=== PATIENT | male | born 1950 | race Caucasian/White ===

== ENCOUNTER 2016-12-05 11:54 | Emergency (ER) | payer OTHER ==
[~2016-12-05] VITALS: Ht 170.2 cm; Wt 97.0 kg
[~2016-12-05 11:54] MED LIST: ADVIN25/60 INH; CETI10TA84 PO; GABA-113 PO; HYDR-5688 PO; MONT1TAB3 PO; SNQ/25 PO; XPNIN INH
[2016-12-05 11:57] VITALS: Ht 170.2 cm; Wt 97.0 kg
[2016-12-05] MEDS ORDERED: ONDANSETRON INJ 2 MG/ML 2 ML VIAL IV STA (12:17)
[2016-12-05] MEDS ORDERED: MoRPHine SULFATE 4 MG/ML 1 ML CARP\\VIAL IV STA (12:17)
[2016-12-05] MEDS ORDERED: DEXAMETHASONE SOD INJ 10 MG/ML VIAL IV ONE (12:30)
[2016-12-05] MEDS ORDERED: KETOROLAC TROMETHAMINE 15 MG/ML VIAL IV ONE (12:30)
[2016-12-05] MEDS ORDERED: KETOROLAC TROMETHAMINE 30 MG/ML VIAL ONE (12:31)
[2016-12-05 12:45] LABS: BASO % 0.4 %; BASO ABS # 0.02 K/uL (0-0.2); COMPLETE YES; EOS % 3.6 %; HEMATOCRIT 42.6 % (42-52); IG% 0.2 %; LYMPH % 27.5 %; LYMPH ABS # 1.52 K/uL (1.2-3.4); MEAN CELL VOLUME 91.8 fL (80-100); MEAN CORPUSCULAR HGB CONC 35.9 g/dl (32-36); MEAN PLATELET VOLUME 9.4 fL (7.4-10.4); MONO % 7.6 %; NEUT % 60.7 %; PLATELET COUNT 166 K/uL (130-400); RED BLOOD COUNT 4.64 M/uL (4.7-6.1); WHITE BLOOD COUNT 5.52 K/uL (4.8-10.8)
[2016-12-05 13:01] LABS: CALCIUM 8.6 mg/dl (8.5-10.1); CREATININE 0.82 mg/dl (0.60-1.40); POTASSIUM 4.1 mmol/L (3.5-5.1)
[2016-12-05] MEDS ORDERED: MoRPHine SULFATE 2 MG/ML CARP IV STA (13:35)
[2016-12-05] MEDS ORDERED: FLUC100T4 PO (13:42)
[2016-12-05] MEDS ORDERED: PRED20TA PO (14:48)
[2016-12-05] MEDS ORDERED: OXYC-57 PO (14:48)
[2016-12-05] MEDS ORDERED: PROM25TA9 PO (14:48)
[2016-12-05 15:07] VITALS: BP 121/71; PULSE 66; TEMP 36.6; O2SAT 92
--- NOTE | 2016-12-13 20:39 | EMERGENCY ROOM VISIT NOTE ---
History First contact with patient: 12:04 Chief Complaint: BACK PAIN Stated Complaint: SEVERE BACK PAIN History of Present Illness The patient is a 66 year old white male who presents to the Emergency Room with complaints of severe low back pain that started on Mike. He has a known history of back problems. Patient has seen Dr. Live in the past for surgery. He was also seen earlier this week in the office. He was also previously seen at pain management this week. Patient presents a photocopy of an x-ray, that shows a broken screw in his sacral area. Patient denies any difficulty with bowel or bladder function. Pain is 10/10. He has been using Ventress 7.5 mg at home without improvement. Pain radiates to the back of his thighs. His worst pain is over the lumbosacral junction. He denies any true numbness but does state he has blunted sensation the legs. No trauma. No specific injury to increase his pain. Review of Systems REVIEW OF SYSTEM: HEENT: No dizziness, visual problems, hearing loss, or tinnitus. There is no difficulty swallowing and no oral lesions are present. LYMPH: No adenopathy. PULMONARY: No cough, shortness of breath, sputum production or hemoptysis. CARDIOVASCULAR: No chest pain, palpitations, shortness of breath or peripheral edema. GASTROINTESTINAL: No diarrhea, constipation, nausea, vomiting, or abdominal pain. GENITOURINARY: No dysuria, frequency, urgency or nocturia. NEUROLOGIC: No weakness, muscle tenderness, epilepsy or history of neurological problems. MUSCULOSKELETAL: No history of joint tenderness/swelling. Positive history of arthritis and arthralgias. SKIN: No rashes or lesions. PSYCHIATRIC: No history of depression or mental illness. ENDOCRINE: No history of diabetes, thyroid disorders, or abnormal hair growth. Past Medical/Surgical History Medical Problems: (1) Asthma (2) Chest pain radiating to arm (3) Chest pain radiating to jaw Surgical Problems: (1) H/O repair of left rotator cuff (2) H/O repair of right rotator cuff (3) History of lumbar surgery Family History No pertinent family history Significant for hypertension. Parents are . Social History Smoking Status: Never Smoker Alcohol Use: none Drug Use: none Marital Status: Housing Status: lives with significant other Occupation Status: retired Current/Historical Medications Scheduled Cetirizine (Zyrtec), 10 MG PO BID Doxepin (Sinequan), 75 MG PO HS Fluconazole (Diflucan), 75 MG PO HS Fluticasone Prop/Salmeterol (Advair Diskus 250/50 60 Dose), 1 PUFF INH BID Gabapentin (Neurontin), 900 MG PO TID Montelukast Sodium (Singulair), 10 MG PO QAM Prednisone (Prednisone), 0 PO DAILY Scheduled PRN Hydrocodone/Acetaminophen 5MG/325MG (Ventress 5MG/325MG), 1 TABLET PO TID PRN for Pain Levalbuterol Tartrate (Xopenex Hfa), 1 PUFF INH UD PRN for Asthma Symptoms Oxycodone/Acetaminophen 5MG/325MG (Percocet 5MG/325MG), 1-2 TABS PO Q4 PRN for Pain Promethazine Hcl (Phenergan), 25 MG PO Q6H PRN for Nausea Allergies Coded Allergies: Acetaminophen (Unverified Allergy, Intermediate, nausea, 12/05/16) Oxycodone (Unverified Allergy, Intermediate, nausea, 12/05/16) Sulfa Antibiotics (Verified Allergy, Intermediate, RASH, 12/05/16) POLLEN (Verified Allergy, Mild, RASH ITCHING, 12/05/16) ENVIRONMENTAL ALLERGIES Cat Dander (Verified Allergy, Unknown, ., 12/05/16) Dog Dander (Verified Allergy, Unknown, ., 12/05/16) Molds & Smuts (Verified Allergy, Unknown, ., 12/05/16) Physical Exam Vital Signs Date Time Temp Pulse Resp B/P Pulse Ox O2 Delivery O2 Flow Rate FiO2 12/05/16 15:07 36.6 66 18 121/71 92 12/05/16 15:05 66 18 121/71 92 Room Air Mask 12/05/16 14:12 68 18 129/76 95 Mask 4.0 12/05/16 12:56 68 18 115/74 91 Room Air 12/05/16 11:57 36.6 80 18 129/62 94 Room Air Pain Rating (0-10): 6.0 Physical Exam Gen.: Well-developed, well-nourished, elderly white male, in obvious discomfort. Laying on a bed. Alert and oriented. Skin:Warm and dry with good turgor. No rashes or lesions. No ecchymosis or erythema. The patient is not diaphoretic. No abrasions. Large scar present over his lumbar spine. Musculoskeletal: Patient has diffuse discomfort with palpation over his lumbar spine and paraspinal musculature. Palpable spasm present in both erector spinae. He complains of pain with palpation over the SI joints as well as the vertebrae from L3 through S1. Worst pain is over the sacrum. Neurologic: Gross sensation is intact across the lower extremities by soft touch. DTRs are 1+ bilaterally. Peripheral pulses are 2+. Medical Decision & Procedures Laboratory Results 12/05/16 12:35 Red Blood Count 4.64, Mean Corpuscular Volume 91.8, Mean Corpuscular Hemoglobin 33.0, Mean Corpuscular Hemoglobin Concent 35.9, Mean Platelet Volume 9.4, Neutrophils (%) (Auto) 60.7, Lymphocytes (%) (Auto) 27.5, Monocytes (%) (Auto) 7.6, Eosinophils (%) (Auto) 3.6, Basophils (%) (Auto) 0.4, Neutrophils # (Auto) 3.35, Lymphocytes # (Auto) 1.52, Monocytes # (Auto) 0.42, Eosinophils # (Auto) 0.20, Basophils # (Auto) 0.02 12/05/16 12:35 Test 12/05/16 12:35 White Blood Count 5.52 K/uL (4.8-10.8) Red Blood Count 4.64 M/uL (4.7-6.1) Hemoglobin 15.3 g/dL (14.0-18.0) Hematocrit 42.6 % (42-52) Mean Corpuscular Volume 91.8 fL (80-100) Mean Corpuscular Hemoglobin 33.0 pg (25-34) Mean Corpuscular Hemoglobin Concent 35.9 g/dl (32-36) Platelet Count 166 K/uL (130-400) Mean Platelet Volume 9.4 fL (7.4-10.4) Neutrophils (%) (Auto) 60.7 % Lymphocytes (%) (Auto) 27.5 % Monocytes (%) (Auto) 7.6 % Eosinophils (%) (Auto) 3.6 % Basophils (%) (Auto) 0.4 % Neutrophils # (Auto) 3.35 K/uL (1.4-6.5) Lymphocytes # (Auto) 1.52 K/uL (1.2-3.4) Monocytes # (Auto) 0.42 K/uL (0.11-0.59) Eosinophils # (Auto) 0.20 K/uL (0-0.5) Basophils # (Auto) 0.02 K/uL (0-0.2) RDW Standard Deviation 42.5 fL (36.4-46.3) RDW Coefficient of Variation 12.6 % (11.5-14.5) Immature Granulocyte % (Auto) 0.2 % Immature Granulocyte # (Auto) 0.01 K/uL (0.00-0.02) Anion Gap 6.0 mmol/L (3-11) Est Creatinine Clear Calc Drug Dose 95.7 ml/min Estimated GFR () 105.3 Estimated GFR (Non- 90.9 BUN/Creatinine Ratio 15.0 (10-20) Calcium Level 8.6 mg/dl (8.5-10.1) CBC and PRP obtained today were unremarkable. Medications Administered Medications (Trade) Dose Ordered Sig/Catalina Route Start Time Stop Time Status Last Admin Dose Admin Ondansetron HCl (Zofran Inj) 4 mg NOW STAT IV 12/05/16 12:17 12/05/16 12:21 DC 12/05/16 12:39 4 MG Morphine Sulfate (MoRPHine SULFATE INJ) 4 mg NOW STAT IV 12/05/16 12:17 12/05/16 12:21 DC 12/05/16 12:38 4 MG Ketorolac Tromethamine (Toradol Inj) 15 mg NOW ONCE IV 12/05/16 12:30 12/05/16 12:31 DC 12/05/16 12:30 15 MG Dexamethasone Sodium Phosphate (Decadron Inj) 10 mg NOW ONCE IV 12/05/16 12:30 12/05/16 12:31 DC 12/05/16 12:39 10 MG Morphine Sulfate (MoRPHine SULFATE INJ) 2 mg NOW STAT IV 12/05/16 13:35 12/05/16 13:36 DC 12/05/16 14:11 2 MG Toradol 50 mg IV, dexamethasone 10 mg IV, morphine 4 mg IV, morphine 2 mg IV, Zofran 4 mg IV ED Course Patient was educated regarding today's findings as was his . Conservative care measures were discussed. IV was established. Labs were obtained. He was initially given morphine 4 mg IV, Zofran 4 mg IV, Toradol 15 g IV and Decadron 10 mg IV. Pain improved significantly but was short-lived. He was given an additional 2 mg morphine IV. O2 sats declined and he was placed on oxygen by nasal cannula. He was able to get up and go to the bathroom with minimal assistance. Patient and his did inquire about admission for pain control. I did speak with Dr. Live regarding this patient. He is very familiar with him. He recommended outpatient treatment and follow-up in the office. This was discussed with the patient. He was given a perception for Percocet 5/325 mg as well as Phenergan 25 mg to assist with nausea control. He will stop the Ventress. Return to the ED for any acute changes or worsening of symptoms. Limit his physical activity. Patient was also prescribed a tapering course of prednisone to be used over the next 7 days. Medical Decision Possibility of compression fracture, nerve root impingement, cauda equina syndrome, and broken hardware were considered. Impression Primary Impression: Acute exacerbation of chronic low back pain Additional Impression: History of lumbar surgery Departure Information Dispostion Home / Self-Care Condition GOOD Prescriptions Prednisone (Prednisone) 20 Mg Tab 0 PO DAILY, #15 TAB 3 DAILY FOR 3 DAYS, THEN 2 DAILY FOR 2 DAYS, THEN 1 DAILY FOR 2 DAYS. Prov: Neymar Garcia,P.A. 12/05/16 Promethazine Hcl (Phenergan) 25 Mg Tab 25 MG PO Q6H Y for Nausea, #12 TAB Prov: Neymar Garcia,P.A. 12/05/16 Oxycodone/Acetaminophen 5MG/325MG (PERCOCET 5MG/325MG) Tab 1-2 TABS PO Q4 Y for Pain, #30 TAB For Initial Treatment Prov: Neymar Garcia,P.A. 12/05/16 Referrals Aidan Live, DO Forms HOME CARE DOCUMENTATION FORM, IMPORTANT VISIT INFORMATION Patient Instructions My [facility] [employer] Additional Instructions Limit your activity Substitute Percocet instead of hydrocodone. Take one to 2 tablets every 4 hours as needed for pain Take Phenergan 1 tablet every 6 hours as needed for nausea Start prednisone tapering course daily as directed Use a stool softener to prevent constipation Call Dr. Live on Wednesday for follow-up Return to the ED for any loss of bowel or bladder control, or uncontrolled pain Problem Qualifiers
[2016-12-15] MEDS ORDERED: MONT1TAB3 PO (08:27)
[2016-12-15] MEDS ORDERED: OXYC-106 PO (08:29)
== END 2016-12-05 15:10 | disposition home or self-care (01) ==
LOC: C.EDB 11:55 → C.EDD 15:10
DX: M54.5 Low back pain (principal); Z98.890 Other specified postprocedural states

== ENCOUNTER 2016-12-24 09:05 | Inpatient (IN) | payer OTHER ==
[2016-12-15 08:31] VITALS: BMI 35.0
--- NOTE | 2016-12-15 09:02 | PAT Medication Instructions ---
Service Date Dec 15, 2016. Current Home Medication List Cetirizine (Zyrtec), 10 MG PO BID Doxepin (Sinequan), 75 MG PO HS Fluticasone Prop/Salmeterol (Advair Diskus 250/50 60 Dose), 1 PUFF INH BID Gabapentin (Neurontin), 900 MG PO TID Levalbuterol Tartrate (Xopenex Hfa), 1 PUFF INH UD PRN for Asthma Symptoms Montelukast Sodium (Singulair), 10 MG PO QAM Oxycodone/Acetaminophen 10MG/325MG (Percocet 10MG/325MG), 1 TAB PO Q6H PRN for N Medication Instructions For Your Scheduled Surgery - Hold the following medications the morning of surgery: Montelukast Sodium (Singulair), 10 MG PO QAM Cetirizine (Zyrtec), 10 MG PO BID - Take the following medications the morning of surgery with a sip of water: Levalbuterol Tartrate (Xopenex Hfa), 1 PUFF INH UD PRN for Asthma Symptoms Gabapentin (Neurontin), 900 MG PO TID Fluticasone Prop/Salmeterol (Advair Diskus 250/50 60 Dose), 1 PUFF INH BID Oxycodone/Acetaminophen 10MG/325MG (Percocet 10MG/325MG), 1 TAB PO Q6H PRN for N (okay to take up to 4 hours prior to surgery if needed) - Take the following medications as scheduled the night before surgery: Levalbuterol Tartrate (Xopenex Hfa), 1 PUFF INH UD PRN for Asthma Symptoms Gabapentin (Neurontin), 900 MG PO TID Fluticasone Prop/Salmeterol (Advair Diskus 250/50 60 Dose), 1 PUFF INH BID Doxepin (Sinequan), 75 MG PO HS Cetirizine (Zyrtec), 10 MG PO BID Oxycodone/Acetaminophen 10MG/325MG (Percocet 10MG/325MG), 1 TAB PO Q6H PRN for N (if needed) If you have any questions please call us at [phone] (Avelina Kerr PA-C) or [phone] or [phone]
--- NOTE | 2016-12-15 09:43 | DIAGNOSTIC IMAGING REPORT ---
CHEST PREADMISSION(PA/LAT) HISTORY: Preop. COMPARISON: Chest 10/26/2015 FINDINGS: There is a 11 mm nodular density left lung base. The right lung is clear. The heart is normal in size. No pleural effusions. No pneumothorax. IMPRESSION: There is an 11 mm nodular density at the left lung base which favors a nipple shadow. However, follow-up shallow oblique views of the chest with nipple markers is recommended for confirmation. Electronically signed by: Yury Ashley M.D. 12/15/2016 9:40 AM Dictated Date/Time: 12/15/2016 9:36 AM
[2016-12-15 09:50] LABS: URINE APPEARANCE CLEAR (CLEAR); URINE BILIRUBIN NEG (NEG); URINE COLOR YELLOW; URINE EPITHELIAL CELL AUTO 0-5 /lpf (0-5); URINE NITRITE NEG (NEG); URINE PH 6.5 (4.5-7.5); URINE SPECIFIC GRAVITY 1.006 (1.000-1.030); UROBILINOGEN NEG (NEG)
[2016-12-15 09:56] LABS: PROTHROMBIN TIME (PATIENT) 10.8 SECONDS (9.0-12.0)
[2016-12-15 10:06] LABS: MANUAL MICROSCOPIC REQUIRED? NO; REVIEW REQ? NO
--- NOTE | 2016-12-16 12:51 | DIAGNOSTIC IMAGING REPORT ---
SHALLOW OBLIQUE CHEST RADIOGRAPHS WITH NIPPLE MARKERS CLINICAL HISTORY: Abnormal preoperative chest radiograph. COMPARISON STUDY: Chest radiograph April or 2016 and October 26, 2015. FINDINGS: The nodular density shown on prior exam is not well visualized on this exam. This likely reflects atelectasis, scarring or nipple shadow. No consolidation is identified to suggest pneumonia. Mild cardiomegaly is noted. IMPRESSION: 1. No pulmonary nodule identified. The nodular density shown on prior exam is less conspicuous on this study. 2. Mild cardiomegaly. No evidence of pulmonary edema. Electronically signed by: Jacob Moore M.D. 12/16/2016 12:49 PM Dictated Date/Time: 12/16/2016 12:47 PM
--- NOTE | 2016-12-23 15:14 | HISTORY & PHYSICAL EXAMINATION ---
DATE OF ADMISSION: 12/24/[address] PLACE OF SERVICE: [facility]. HISTORY OF PRESENT ILLNESS: Jonathan is a delightful gentleman. He has a breakdown of his spinal fusion, actually broke some implants, fractured spinal pedicle screw in the lumbar spine S1 region, he has gone on to some chronic pain and some instability patterns. He is for elective spinal surgery, removal of spinal instrumentation and replacement particularly L4-L5 and sacrum. PAST MEDICAL HISTORY: Positive for chronic low back pain, spine issues, rheumatoid, kidney stones. No carcinoma, no COPD, no diabetes mellitus. PAST SURGICAL HISTORY: Lumbar spine surgery, shoulder surgery. ALLERGIES: SULFA AND CAT AND DOG DANDER. SOCIAL HISTORY: Nonsmoker, non-ET[employer] user. ALLERGIES: SULFA. MEDICATIONS: Singulair, doxepin, Advair. REVIEW OF SYSTEMS: Denies any blurred vision, double vision, tinnitus, vertigo mentation issues. He is alert, oriented. Denies any chest pain, palpitations, angina. Denies any wheezing, shortness of breath. No nausea, vomiting, bowel and bladder issues negative. Admits to some orthopedic issues with his knees, lumbar spine which is musculoskeletal, no true neurological issue. No seizure disorder. OBJECTIVE: GENERAL: He is alert, oriented. He is 5 feet 9 inches. He is 210 pounds. He is alert, he is pleasant. HEENT: Essentially normal as well. VITAL SIGNS: Blood pressure 130/80, pulse of 80, respiration rate 16, temperature 97.4. HEART: Normal S1, S2, no S3. LUNGS: Clear to auscultation. No rales, rhonchi or wheezing. ABDOMEN: Soft, nontender, bowel sounds present. MUSCULOSKELETAL: He has pain with flexion, extension of the spine. Pain with percussion. Grossly neurologically intact. IMAGING: Images demonstrated a fracture of the pedicle screw, the sacral pedicle screw on the right hand side. Otherwise, he has fairly good alignment lumbar spine, reasonable lordosis, slight degenerative scoliosis. IMPRESSION: Failure of hardware, lumbar spinal fracture pedicle screw of S1 on the right, possibly on the left. DISPOSITION: He is being admitted to my service, will have removal and then replacement of spinal implants L4-L5 and the sacrum.
[~2016-12-24] VITALS: Ht 170.2 cm; Wt 101.6 kg
[2016-12-24] VITALS (7 sets, daily range): BP systolic 95–140; BP diastolic 56–88; PULSE 74–92; TEMP 36.4–36.8; O2SAT 92–96; Ht 170.2 cm; Wt 101.6 kg
[~2016-12-24 09:05] MED LIST changes: +CEFAZOLIN 2000 MG/60 ML D5W IV SCH; -HYDR-5688 PO; +LACTATED RINGER'S 1000ML 1,000 ML IV SCH; +OXYC-106 PO; +SODIUM CHLORIDE 0.9% 1000ML 1,000 ML IV SCH
[2016-12-24] MEDS ORDERED: LIDOCAINE HCL 2% 2 ML VIAL (20MG/ML) ONE ×2 (10:17→13:28)
[2016-12-24] MEDS ORDERED: PROPOFOL IV EMULSION 10 MG/ML 20 ML VIAL IV ONE ×2 (10:17→13:28)
[2016-12-24] MEDS ORDERED: MIDAZOLAM HCL 1 MG/ML 2ML VIAL ONE (10:17)
[2016-12-24] MEDS ORDERED: FENTANYL CITRATE INJ 50 MCG/1 ML 2 ML VIAL ONE (10:17)
[2016-12-24] MEDS ORDERED: GLYCOPYRROLATE INJ 0.2 MG/ML VIAL ONE ×2 (10:17→13:28)
[2016-12-24] MEDS ORDERED: ROCURONIUM BROMIDE 10 MG/ML 5 ML VIAL ONE ×2 (10:17→13:28)
[2016-12-24] MEDS ORDERED: NEOSTIGMINE METHYLSULFATE 5 MG/5 ML SYR ONE ×2 (10:17→13:28)
[2016-12-24] MEDS ORDERED: DEXAMETHASONE SOD INJ 4 MG/ML VIAL ONE ×2 (10:17→11:49)
[2016-12-24] MEDS ORDERED: ONDANSETRON INJ 2 MG/ML 2 ML VIAL ONE ×2 (10:17→13:28)
[2016-12-24] MEDS ORDERED: EpHEDrine SULFATE INJ 50 MG/ML AMP IV PRN (10:30)
[2016-12-24] MEDS ORDERED: MEPERIDINE HCL 25 MG/ML CARP IV PRN (10:30)
[2016-12-24] MEDS ORDERED: FLUMAZENIL 0.1 MG/1 ML 10 ML VIAL IV PRN (10:30)
[2016-12-24] MEDS ORDERED: ONDANSETRON INJ 2 MG/ML 2 ML VIAL IV PRN ×2 (10:30→14:45)
[2016-12-24] MEDS ORDERED: ATROPINE SULFATE 0.1 MG/ML 5ML SYR IV PRN (10:30)
[2016-12-24] MEDS ORDERED: MoRPHine SULFATE 10 MG/ML CARP/VIAL IV PRN (10:30)
[2016-12-24] MEDS ORDERED: LABETALOL HCL IV 5 MG/ML 20ML IV PRN (10:30)
[2016-12-24] MEDS ORDERED: NALOXONE HCL 0.4 MG/1 ML VIAL/CARP IV PRN (10:30)
[2016-12-24] MEDS ORDERED: PHENYLEPHRINE 100MCG/ML 5ML SYR IV PRN (10:30)
[2016-12-24] MEDS ORDERED: ALBUT/IPRATROP 3MG/0.5MG NEB 3 ML VIAL ONE (10:41)
--- NOTE | 2016-12-24 11:37 | History & Physical Bridge Note ---
H&P Re-Evaluation Bridge Note: I have examined the patient, reviewed the History & Physical and in the interval since the performance of the History & Physical I have noted the following changes of clinical significance: No changes noted
[2016-12-24] MEDS ORDERED: KETAMINE HCL INJ 50 MG/ML 10 ML VIAL ONE (12:04)
[2016-12-24] MEDS ORDERED: HYDROmorphone INJ 2 MG/ML SYR/VIAL ONE (12:05)
[2016-12-24] MEDS ORDERED: WATER, STERILE FOR INJ 10 ML VIAL ONE (12:22)
[2016-12-24] MEDS ORDERED: EpHEDrine SULFATE INJ 50 MG/ML AMP ONE ×2 (12:22→13:30)
--- NOTE | 2016-12-24 13:58 | DIAGNOSTIC IMAGING REPORT ---
INTRAOPERATIVE RADIOGRAPH CLINICAL HISTORY: Hardware removal and replacement. Fluoroscopy time: 5 seconds. FINDINGS: A single spot fluoroscopic image of the lower lumbar spine is presented. There is evidence of discectomy at L4-L5. A fractured screw is present in S1. IMPRESSION: Intraoperative image of the lumbar spine as above. See operative report for detailed findings. Electronically signed by: Miguel Currie M.D. 12/24/2016 1:56 PM Dictated Date/Time: 12/24/2016 1:55 PM
[2016-12-24] MEDS ORDERED: GELATIN SPONGE SZ 100 TOP ONE (14:07)
[2016-12-24] MEDS ORDERED: VANCOMYCIN HCL 1000MG/20ML VIAL TOP ONE (14:07)
[2016-12-24] MEDS ORDERED: THROMBIN FOR SOLN 20000 UNIT KIT TOP ONE (14:07)
[2016-12-24] MEDS ORDERED: BUPIVACAINE/EPINEPHRINE 0.5% MPF 1:200,000 30 ML VIAL INJ ONE (14:07)
[2016-12-24] MEDS ORDERED: BACITRACIN 50000 UNIT VIAL IR ONE (14:07)
--- NOTE | 2016-12-24 14:36 | [facility] Post Operative Brief Note ---
Immediate Operative Summary Operative Date Dec 24, 2016. Pre-Operative Diagnosis Failure of hardware, lumbar spinal fracture pedicle screw of S1 on the right possibly left. Post-Operative Diagnosis Failure of hardware, lumbar spinal fracture pedicle screw of S1 on the right and left. Procedure(s) Performed L3-S1 Removal of Pedicle Screws. Posterior Lumbar Fusion L4-S1 Surgeon Dr. Aidan Live Editing Internship Surgeon(s) Dante Barber PA-C Estimated Blood Loss 200mL Findings broken S1 pedicle screws Specimens A.) Explanted hardware broken pedicle screws B.) Wear debris Complication(s) None Disposition Recovery Room / PACU
[2016-12-24] MEDS ORDERED: PROMETHAZINE HCL INJ 12.5 MG in SODIUM CHLORIDE 0.9% 50ML 50 ML IV PRN (14:45)
[2016-12-24] MEDS ORDERED: LORAZEPAM 1 MG TAB PO PRN (14:45)
[2016-12-24] MEDS ORDERED: METOCLOPRAMIDE HCL INJ 5 MG/ML 2 ML VIAL IV PRN (14:45)
[2016-12-24] MEDS ORDERED: LORAZEPAM INJ 1 MG in SYRINGE 0 ML IV PRN (14:45)
[2016-12-24] MEDS ORDERED: MAGNESIUM HYDROXIDE SUSP 30 ML UDC PO PRN (14:45)
[2016-12-24] MEDS: HYDROmorphone INJ 1 MG/ML SYR IV PRN ×2 (15:01→15:15)
--- NOTE | 2016-12-24 15:23 | Anesthesiology Progress Note ---
Anesthesia Post Op Note Date & Time Dec 24, 2016 at 15:24 Vital Signs Pain Intensity: 4 Vital Signs Past 12 Hours Date Time Temp Pulse Resp B/P Pulse Ox O2 Delivery O2 Flow Rate FiO2 12/24/16 15:10 84 15 141/80 92 Nasal Cannula 4 12/24/16 15:00 86 15 144/80 92 Mask 10 12/24/16 14:50 92 22 134/74 94 Mask 10 12/24/16 14:43 36.1 84 16 138/81 93 Mask 10 12/24/16 09:29 36.6 74 18 140/88 96 Room Air Notes Mental Status: alert / awake / arousable, participated in evaluation Pt Amnestic to Procedure: Yes Nausea / Vomiting: adequately controlled Pain: adequately controlled Airway Patency, RR, SpO2: stable & adequate BP & HR: stable & adequate Hydration State: stable & adequate Anesthetic Complications: no major complications apparent
[2016-12-24] MEDS: HYDROCODONE/ACETAMOPHEN 5/325MG TAB PO PRN ×2 (17:12→21:11)
[2016-12-24] MEDS: SODIUM CHLORIDE 0.9% 1000ML 1,000 ML IV SCH (17:26)
--- NOTE | 2016-12-24 17:39 | OPERATIVE REPORT ---
DATE OF OPERATION: 12/24/2016 PREOPERATIVE DIAGNOSIS: Failure of spinal implants, S1 lumbar spine. POSTOPERATIVE DIAGNOSIS: Same. PROCEDURES: Posterior approach lumbar spine, removal of spinal implants, L3-L4, L5-S1 bilaterally and augmentation of spinal fusion L4, L5 and S1, posterolateral fusion, no interbody. SURGEON: Dr. Live. FAMILY PHYSICIAN: Dante Barber PA-C. INDICATIONS FOR SURGERY: Chronic pain with failure of spinal implants, fracture of the S1 pedicle screws. COMPLICATIONS: No complications. BLOOD LOSS: 200. DESCRIPTION OF PROCEDURE: The patient was taken to the operating room, a general intubated anesthetic provided to the patient. Adan catheter was administered. Placed prone, prepped and draped sterile. We made a skin incision essentially in his old incision from 3 down to the sacrum, dissecting the soft tissue. It was a rigorous dissection to get out over the pedicle screws. We had determined that preoperatively he had fractured the S1 pedicle screw and intraoperatively he actually fractured the S1 pedicle screw, left and right. We then carefully removed the spinal implants which were pedicle screws at L3-L4, L5-S1 bilaterally and the longitudinal aiden. I assessed him for instability. I thought he was solidly fused. There was no motion, micro otherwise determined. He also had good lordosis and well maintained coronal alignment as well. The S1 pedicle screws had fractured off and they were deep within the sacrum. Either side because the patient had united and there was no nonunion, that we left the screws in place. We then irrigated thoroughly. We bone grafted out over the transverse processes. We closed fascia to fascia with #1 Vicryl suture, 2-0 nylon on the skin, sterile dressing applied. The patient returned to PACU in improved stable condition. There were no apparent complications. I attest to the content of the Intraoperative Record and any orders documented therein. Any exceptio ns are noted below.
[2016-12-24] MEDS: KETOROLAC TROMETHAMINE 30 MG/ML VIAL IV SCH (17:52)
[2016-12-24] MEDS: HYDROmorphone INJ 2 MG/ML SYR/VIAL IV PRN ×2 (18:45→23:25)
[2016-12-24] MEDS: CEFAZOLIN IV 2,000 MG in DEXTROSE 5% 50ML 50 ML IV SCH (20:19)
[2016-12-24] MEDS: DEXAMETHASONE INJ 10 MG in SYRINGE 0 ML IV SCH (20:19)
[2016-12-24] MEDS: DOXEPIN HCL 75 MG CAP PO SCH (21:11)
[2016-12-24] MEDS: MONTELUKAST SOD 10 MG TAB PO SCH (21:11)
[2016-12-24] MEDS: CETIRIZINE HCL 10 MG TAB PO SCH (21:11)
[2016-12-24] MEDS: FLUTICASONE/SALMETEROL 250/50 (ADVAIR) 14 PUFF/1 INHALER INH SCH (21:12)
[2016-12-24] MEDS: GABAPENTIN 300 MG CAP PO SCH (21:13)
[2016-12-25] VITALS (8 sets, daily range): BP systolic 98–108; BP diastolic 52–63; PULSE 65–78; TEMP 36.6–36.7; O2SAT 90–92
[2016-12-25] MEDS: KETOROLAC TROMETHAMINE 30 MG/ML VIAL IV SCH ×5 (00:14→23:20)
[2016-12-25] MEDS: DEXAMETHASONE INJ 10 MG in SYRINGE 0 ML IV SCH ×3 (03:52→20:45)
[2016-12-25] MEDS: SODIUM CHLORIDE 0.9% 1000ML 1,000 ML IV SCH (03:52)
[2016-12-25] MEDS: CEFAZOLIN IV 2,000 MG in DEXTROSE 5% 50ML 50 ML IV SCH ×2 (03:52→12:00)
[2016-12-25] MEDS: HYDROmorphone INJ 1 MG/ML SYR IV PRN ×3 (03:59→10:22)
[2016-12-25] MEDS ORDERED: BISACODYL 10 MG SUPP PR PRN (06:00)
[2016-12-25] MEDS ORDERED: BISACODYL 5 MG TABEC PO PRN (06:00)
[2016-12-25] MEDS ORDERED: DC PCA SCH (06:00)
[2016-12-25] MEDS: HYDROCODONE/ACETAMOPHEN 5/325MG TAB PO PRN ×3 (07:48→18:35)
--- NOTE | 2016-12-25 07:56 | Anesthesiology Progress Note ---
Anesthesia Post Op Note Date & Time Dec 25, 2016 at 07:54 Vital Signs Vital Signs Past 12 Hours Date Time Temp Pulse Resp B/P Pulse Ox O2 Delivery O2 Flow Rate FiO2 12/25/16 07:19 36.7 69 19 102/59 92 Nasal Cannula 2.0 12/25/16 04:13 36.7 78 16 108/63 92 Room Air 12/25/16 03:50 92 Nasal Cannula 4.0 12/25/16 00:15 103/62 12/25/16 00:00 99/60 12/24/16 23:41 36.8 84 16 95/56 93 Nasal Cannula 3.0 12/24/16 23:40 94 Nasal Cannula 2.0 Notes Mental Status: alert / awake / arousable, participated in evaluation Pt Amnestic to Procedure: Yes Nausea / Vomiting: adequately controlled Pain: adequately controlled Airway Patency, RR, SpO2: stable & adequate BP & HR: stable & adequate Hydration State: stable & adequate Anesthetic Complications: no major complications apparent
[2016-12-25] MEDS: GABAPENTIN 300 MG CAP PO SCH ×3 (08:56→20:46)
[2016-12-25] MEDS: FLUTICASONE/SALMETEROL 250/50 (ADVAIR) 14 PUFF/1 INHALER INH SCH ×2 (08:56→20:45)
[2016-12-25] MEDS: POLYETHYLENE (MIRALAX) 17 GM PACK PO SCH (08:57)
[2016-12-25] MEDS: CETIRIZINE HCL 10 MG TAB PO SCH ×2 (08:57→20:46)
--- NOTE | 2016-12-25 12:18 | Discharge Instructions ---
Discharge Instructions Admission Reason for Admission: Loosening of Musculoskeletal Implant;ABNRL PRE-OP Discharge Discharge Diagnosis / Problem: spinal surgery Discharge Goals Goal(s): Improve function Activity Recommendations Activity Limitations: as noted below Lifting Limitations: gradually increase as tolerated Exercise/Sports Limitations: until after follow-up appointment May Resume Sexual Activity: after follow-up appointment Shower/Bathe: keep incision dry Driving or Machine Use: home, rest ,recover . Instructions / Follow-Up Instructions / Follow-Up take it easy. keep incision clean and protected Current Hospital Diet Patient's current hospital diet: Regular Diet Discharge Diet Recommended Diet: Regular Diet Fluid Restriction: None Procedures Procedures Performed: L3-S1 Removal of Pedicle Screws. Posterior Lumbar Fusion L4-S1 Pending Studies Studies pending at discharge: no Medical Emergencies . Who to Call and When: Medical Emergencies: If at any time you feel your situation is an emergency, please call 911 immediately. . Non-Emergent Contact Non-Emergency issues call your: Surgeon Call Non-Emergent contact if: you have any medication questions . "Provider Documentation" section prepared by Aidan Live. VTE Core Measure Inpt VTE Proph given/why not?: Treatment not indicated
--- NOTE | 2016-12-25 12:56 | PROGRESS NOTE ---
DATE: 12/25/2016 SUBJECTIVE: Moderate complaints of pain. Alert, oriented. No chest pain, shortness of breath. OBJECTIVE: Vital signs 36.7 temperature. Laboratory work not indicated. ASSESSMENT: Status post revision lumbar spine surgery. DISPOSITION: Instructions, precautions, education here today. Dressing change tomorrow. Home tomorrow. Get him up in feet and ambulatory here today, Dante Barber our physician assistant inventory manager will be in charge for his discharge home on 26 of December.
[2016-12-25] MEDS ORDERED: NURSING VERBAL MED ORDER ONE (14:00)
[2016-12-25] MEDS: DOXEPIN HCL 75 MG CAP PO SCH (20:46)
[2016-12-25] MEDS: MONTELUKAST SOD 10 MG TAB PO SCH (20:46)
[2016-12-26] MEDS: DEXAMETHASONE INJ 10 MG in SYRINGE 0 ML IV SCH (03:49)
[2016-12-26] MEDS: HYDROCODONE/ACETAMOPHEN 5/325MG TAB PO PRN ×2 (05:08→10:42)
[2016-12-26 06:22] VITALS: BP 152/80; PULSE 67; TEMP 36.4; O2SAT 94
[2016-12-26] MEDS: KETOROLAC TROMETHAMINE 30 MG/ML VIAL IV SCH ×2 (06:40→11:37)
[2016-12-26] MEDS: POLYETHYLENE (MIRALAX) 17 GM PACK PO SCH (07:24)
[2016-12-26] MEDS ORDERED: OXYC-57 PO (07:54)
[2016-12-26] MEDS: GABAPENTIN 300 MG CAP PO SCH (08:55)
[2016-12-26] MEDS: FLUTICASONE/SALMETEROL 250/50 (ADVAIR) 14 PUFF/1 INHALER INH SCH (08:55)
[2016-12-26] MEDS: CETIRIZINE HCL 10 MG TAB PO SCH (08:55)
[2016-12-26 10:37] VITALS: BP 152/80; PULSE 67; TEMP 36.4; O2SAT 94
--- NOTE | 2017-01-05 14:57 | DISCHARGE SUMMARY ---
Minimal complaints of pain. No lower extremity difficulty. No fevers, sweats, chills, no bowel or bladder consequences. OBJECTIVE: Afebrile. Wound clean. Moves all extremities. ASSESSMENT: Status post lumbar spine revision surgery. DISPOSITION: Home, rest, follow up in 10 days, walker, prescriptions offered. Wound to be kept clean and dry.
== END 2016-12-26 13:16 | disposition home or self-care (01) | DRG 497 ==
LOC: ENRESERVTM → ENRESERVDT → C.ACU 09:05 → C.3E 16:15
PROVIDERS: ADMIT Orthopaedic Surgery Orthopaedic Surgery of the Spine; ATTEND Orthopaedic Surgery Orthopaedic Surgery of the Spine
PROC: 0SU Lower Joints, Supplement (ICD-10-PCS; principal; 2016-12-24 10:45)
PROC: 0QP004Z Removal of Internal Fixation Device from Lumbar Vertebra, Open Approach (ICD-10-PCS; principal; 2016-12-24 10:45)
PROC: 0SU Lower Joints, Supplement (ICD-10-PCS; principal; 2016-12-24 10:45)
PROC: 0QP104Z Removal of Internal Fixation Device from Sacrum, Open Approach (ICD-10-PCS; principal; 2016-12-24 10:45)
DX: T84.216A Breakdown (mechanical) of internal fixation device of vertebrae, initial encounter (principal); Y83.1 Surgical operation with implant of artificial internal device as the cause of abnormal reaction of the patient, or of later complication, without mention of misadventure at the time of the procedure; Z79.899 Other long term (current) drug therapy

== ENCOUNTER 2017-04-09 16:12 | Emergency (ER) | payer OTHER ==
[~2017-04-09] VITALS: Ht 170.2 cm; Wt 96.6 kg
[~2017-04-09 16:12] MED LIST changes: -CEFAZOLIN 2000 MG/60 ML D5W IV SCH; -LACTATED RINGER'S 1000ML 1,000 ML IV SCH; -OXYC-106 PO; +OXYC-57 PO; -SODIUM CHLORIDE 0.9% 1000ML 1,000 ML IV SCH
[2017-04-09 16:17] VITALS: TEMP 36.9; Ht 170.2 cm; Wt 96.6 kg
[2017-04-09] MEDS ORDERED: ONDANSETRON INJ 2 MG/ML 2 ML VIAL IV STA (16:43)
[2017-04-09] MEDS: HYDROmorphone INJ 1 MG/ML SYR IV PRN ×2 (17:00→18:21)
[2017-04-09 17:01] LABS: BASO % 0.3 %; BASO ABS # 0.02 K/uL (0-0.2); COMPLETE YES; EOS % 2.4 %; HEMATOCRIT 43.3 % (42-52); LYMPH % 24.9 %; LYMPH ABS # 1.45 K/uL (1.2-3.4); MEAN CELL VOLUME 92.1 fL (80-100); MEAN CORPUSCULAR HEMOGLOBIN 32.1 pg (25-34); MEAN CORPUSCULAR HGB CONC 34.9 g/dl (32-36); MEAN PLATELET VOLUME 9.3 fL (7.4-10.4); MONO % 7.4 %; PLATELET COUNT 164 K/uL (130-400); WHITE BLOOD COUNT 5.83 K/uL (4.8-10.8)
[2017-04-09 17:19] LABS: URINE APPEARANCE CLEAR (CLEAR); URINE BILIRUBIN NEG (NEG); URINE COLOR YELLOW; URINE NITRITE NEG (NEG); URINE SPECIFIC GRAVITY 1.029 (1.000-1.030); UROBILINOGEN NEG (NEG); ZZUR CULT IF INDIC CLEAN CATCH NO
[2017-04-09 17:24] LABS: MANUAL MICROSCOPIC REQUIRED? NO; REVIEW REQ? NO
[2017-04-09] MEDS ORDERED: MELO15TA4 PO (17:27)
[2017-04-09 17:28] LABS: BUN/CREATININE RATIO 16.6 (10-20); CALCIUM 8.6 mg/dl (8.5-10.1); CREATININE 0.84 mg/dl (0.60-1.40); POTASSIUM 4.1 mmol/L (3.5-5.1)
--- NOTE | 2017-04-09 17:46 | DIAGNOSTIC IMAGING REPORT ---
ABDOMEN AND PELVIS CT WITHOUT CONTRAST CT DOSE: 1012.45 mGy.cm HISTORY: PERIUMBILICAL LUMP AND PAIN, ?HERNIA TECHNIQUE: Multiaxial CT images of the abdomen and pelvis were performed without contrast. COMPARISON STUDY: Abdomen CT 03/14/2015. FINDINGS: A few bibasilar linear densities favor subsegmental atelectasis. Interval removal of the majority of the hardware within the lumbar spine. Small amount of fluid and gas at the laminectomy sites at L4 and L5 favor postoperative change. The fluid collection measures 4.4 x 2.7 cm. Stable 2 cm hypodense lesion within the right hepatic lobe. The unenhanced gallbladder, spleen, adrenal glands, and pancreas are unremarkable. Bilateral nephrolithiasis. No hydronephrosis. The bladder is decompressed but appears unremarkable. No retroperitoneal lymphadenopathy. Suboptimal evaluation for bowel pathology due to the lack of intravenous and oral contrast. However, there is no definite bowel wall thickening or obstruction. There are few scattered colonic diverticula. Normal appendix. Evidence for mesh repair of an umbilical hernia. Mild soft tissue thickening at the umbilicus favors postoperative scarring. This remains unchanged. The mesh is unchanged in appearance. No surrounding inflammatory change. No evidence for recurrent ventral hernia. IMPRESSION: 1. No change in appearance of the mesh repair for an umbilical hernia. No evidence for recurrent ventral hernia. 2. Bilateral nephrolithiasis. No hydronephrosis. 3. No definite bowel wall thickening or obstruction. 4. Normal appendix. 5. Interval removal of the majority of the lumbar spine fusion hardware. Small gas and fluid collection at the laminectomy sites favors postoperative change. Electronically signed by: Yury Ashley M.D. 04/09/2017 5:45 PM Dictated Date/Time: 04/09/2017 5:36 PM
[2017-04-09] MEDS ORDERED: TRAMADOL HCL 50 MG HOME PACK PO ONE (19:30)
[2017-04-09 19:58] VITALS: BP 119/74; PULSE 73; O2SAT 94
--- NOTE | 2017-04-09 22:21 | EMERGENCY ROOM VISIT NOTE ---
History Report prepared by Heather: Elsa Roger Under the Supervision of: Dr. Aidan Rodriguez M.D. First contact with patient: 16:32 Chief Complaint: ABDOMINAL PAIN Stated Complaint: STOMACH KNOTS ON SURFACE History of Present Illness The patient is a 66 year old male who presents to the Emergency Room with complaints of worsening centralized abdominal pain that started 2 days ago. He rates his discomfort as a 5/10 in severity. The patient has a history of a mesh hernia repair in the area of the pain. His also reports that there is a lump that comes out of the patient's abdomen when he lies down and tries to sit up. Pt denies LOC, headache, fevers, chills, diaphoresis, visual changes, neck pain, chest pain, breathing difficulties, nausea, vomiting, back pain, melena, hematochezia, urinary symptoms, numbness, weakness, lymphadenopathy, rash, or other complaints. The patient's adds that the patient just had his seventh back surgery and his has a history of several other orthopedic surgeries, but no abdominal surgeries. Source of History: patient, spouse/significant other () Onset: 2 days ago Position: abdomen (centralized) Symptom Intensity: 5/10 Timing: worsening Note: abdominal mass with lying down Review of Systems See HPI for pertinent positives and negatives. A total of ten systems were reviewed and were otherwise negative. Past Medical & Surgical Medical Problems: (1) Asthma (2) Chest pain radiating to arm (3) Chest pain radiating to jaw (4) Insertion of stent into ureter (5) Lumbar spinal stenosis (6) Ureteric stone Surgical Problems: (1) H/O repair of left rotator cuff (2) H/O repair of right rotator cuff (3) History of hernia repair (4) History of lumbar surgery Family History No pertinent family history Social History Smoking Status: Never Smoker Alcohol Use: none Marital Status: Housing Status: lives with significant other Current/Historical Medications Scheduled Cetirizine (Zyrtec), 10 MG PO BID Doxepin (Sinequan), 75 MG PO HS Fluticasone Prop/Salmeterol (Advair Diskus 250/50 60 Dose), 1 PUFF INH BID Meloxicam (Mobic), 15 MG PO DAILY Montelukast Sodium (Singulair), 10 MG PO QAM Allergies Coded Allergies: Sulfa Antibiotics (Verified Allergy, Intermediate, RASH, 04/09/17) POLLEN (Verified Allergy, Mild, RASH ITCHING, 04/09/17) ENVIRONMENTAL ALLERGIES Acetaminophen (Verified Adverse Reaction, Intermediate, nausea, 04/09/17) Oxycodone (Verified Adverse Reaction, Intermediate, nausea, 04/09/17) Cat Dander (Verified Adverse Reaction, Unknown, STUFFINESS, ITCHY, 04/09/17 ) Dog Dander (Verified Adverse Reaction, Unknown, STUFFINESS, ITCHY, 04/09/17 ) Dust (Unverified Adverse Reaction, Unknown, STUFFINESS, 04/09/17) Molds & Smuts (Verified Adverse Reaction, Unknown, STUFFINESS ITCHY, ) Physical Exam Vital Signs Date Time Temp Pulse Resp B/P Pulse Ox O2 Delivery O2 Flow Rate FiO2 04/09/17 19:58 73 22 119/74 94 04/09/17 19:17 74 16 113/81 93 Room Air 04/09/17 18:21 74 04/09/17 18:18 74 16 120/76 93 Room Air 04/09/17 16:17 36.9 85 16 145/96 97 Room Air Physical Exam GENERAL: Awake, alert, uncomfortable-appearing, in no distress HENT: Normocephalic, atraumatic. Oropharynx unremarkable. EYES: Normal conjunctiva. Sclera non-icteric. NECK: Supple. No nuchal rigidity. FROM. No JVD. RESPIRATORY: Clear to auscultation. CARDIAC: Regular rate, normal rhythm. Extremities warm and well perfused. Pulses equal. ABDOMEN: Soft, non-distended. Periumbilical mass with tenderness to palpation. No rebound or guarding. No masses. RECTAL: Deferred. MUSCULOSKELETAL: Chest examination reveals no tenderness. The back is symmetrical on inspection without obvious abnormality. There is no CVA tenderness to palpation. No joint edema. LOWER EXTREMITIES: Calves are equal size bilaterally and non-tender. No edema. No discoloration. NEURO: Normal sensorium. No sensory or motor deficits noted. SKIN: No rash or jaundice noted. Medical Decision & Procedures ER Provider Diagnostic Interpretation: Radiology results as stated below per my review and radiologist interpretation: ABDOMEN AND PELVIS CT WITHOUT CONTRAST FINDINGS: A few bibasilar linear densities favor subsegmental atelectasis. Interval removal of the majority of the hardware within the lumbar spine. Small amount of fluid and gas at the laminectomy sites at L4 and L5 favor postoperative change. The fluid collection measures 4.4 x 2.7 cm. Stable 2 cm hypodense lesion within the right hepatic lobe. The unenhanced gallbladder, spleen, adrenal glands, and pancreas are unremarkable. Bilateral nephrolithiasis. No hydronephrosis. The bladder is decompressed but appears unremarkable. No retroperitoneal lymphadenopathy. Suboptimal evaluation for bowel pathology due to the lack of intravenous and oral contrast. However, there is no definite bowel wall thickening or obstruction. There are few scattered colonic diverticula. Normal appendix. Evidence for mesh repair of an umbilical hernia. Mild soft tissue thickening at the umbilicus favors postoperative scarring. This remains unchanged. The mesh is unchanged in appearance. No surrounding inflammatory change. No evidence for recurrent ventral hernia. IMPRESSION: 1. No change in appearance of the mesh repair for an umbilical hernia. No evidence for recurrent ventral hernia. 2. Bilateral nephrolithiasis. No hydronephrosis. 3. No definite bowel wall thickening or obstruction. 4. Normal appendix. 5. Interval removal of the majority of the lumbar spine fusion hardware. Small gas and fluid collection at the laminectomy sites favors postoperative change. Electronically signed by: Yury Ashley M.D. 04/09/2017 5:45 PM Dictated Date/Time: 04/09/2017 5:36 PM Laboratory Results 04/09/17 16:50 Red Blood Count 4.70, Mean Corpuscular Volume 92.1, Mean Corpuscular Hemoglobin 32.1, Mean Corpuscular Hemoglobin Concent 34.9, Mean Platelet Volume 9.3, Neutrophils (%) (Auto) 65.0, Lymphocytes (%) (Auto) 24.9, Monocytes (%) (Auto) 7.4, Eosinophils (%) (Auto) 2.4, Basophils (%) (Auto) 0.3, Neutrophils # (Auto) 3.79, Lymphocytes # (Auto) 1.45, Monocytes # (Auto) 0.43, Eosinophils # (Auto) 0.14, Basophils # (Auto) 0.02 04/09/17 16:50 Test 04/09/17 16:50 04/09/17 17:03 White Blood Count 5.83 K/uL (4.8-10.8) Red Blood Count 4.70 M/uL (4.7-6.1) Hemoglobin 15.1 g/dL (14.0-18.0) Hematocrit 43.3 % (42-52) Mean Corpuscular Volume 92.1 fL (80-100) Mean Corpuscular Hemoglobin 32.1 pg (25-34) Mean Corpuscular Hemoglobin Concent 34.9 g/dl (32-36) Platelet Count 164 K/uL (130-400) Mean Platelet Volume 9.3 fL (7.4-10.4) Neutrophils (%) (Auto) 65.0 % Lymphocytes (%) (Auto) 24.9 % Monocytes (%) (Auto) 7.4 % Eosinophils (%) (Auto) 2.4 % Basophils (%) (Auto) 0.3 % Neutrophils # (Auto) 3.79 K/uL (1.4-6.5) Lymphocytes # (Auto) 1.45 K/uL (1.2-3.4) Monocytes # (Auto) 0.43 K/uL (0.11-0.59) Eosinophils # (Auto) 0.14 K/uL (0-0.5) Basophils # (Auto) 0.02 K/uL (0-0.2) RDW Standard Deviation 42.5 fL (36.4-46.3) RDW Coefficient of Variation 12.6 % (11.5-14.5) Immature Granulocyte % (Auto) 0.0 % Immature Granulocyte # (Auto) 0.00 K/uL (0.00-0.02) Anion Gap 9.0 mmol/L (3-11) Est Creatinine Clear Calc Drug Dose 93.2 ml/min Estimated GFR () 104.3 Estimated GFR (Non- 90.0 BUN/Creatinine Ratio 16.6 (10-20) Calcium Level 8.6 mg/dl (8.5-10.1) Total Bilirubin 0.5 mg/dl (0.2-1) Direct Bilirubin 0.1 mg/dl (0-0.2) Aspartate Amino Transf (AST/SGOT) 18 U/L (15-37) Alanine Aminotransferase (ALT/SGPT) 29 U/L (12-78) Alkaline Phosphatase 82 U/L (45-117) Total Protein 7.2 gm/dl (6.4-8.2) Albumin 4.1 gm/dl (3.4-5.0) Lipase 175 U/L (73-393) Urine Color YELLOW Urine Appearance CLEAR (CLEAR) Urine pH 6.0 (4.5-7.5) Urine Specific Flynn 1.029 (1.000-1.030) Urine Protein NEG (NEG) Urine Glucose (UA) NEG (NEG) Urine Ketones TRACE (NEG) Urine Occult Blood 1+ (NEG) Urine Nitrite NEG (NEG) Urine Bilirubin NEG (NEG) Urine Urobilinogen NEG (NEG) Urine Leukocyte Esterase NEG (NEG) Urine WBC (Auto) 1-5 /hpf (0-5) Urine RBC (Auto) 5-10 /hpf (0-4) Urine Hyaline Casts (Auto) 1-5 /lpf (0-5) Urine Epithelial Cells (Auto) 5-10 /lpf (0-5) Urine Bacteria (Auto) NEG (NEG) Laboratory results reviewed by me Medications Administered Medications (Trade) Dose Ordered Sig/[place] Route Start Time Stop Time Status Last Admin Dose Admin Ondansetron HCl (Zofran Inj) 4 mg NOW STAT IV 04/09/17 16:43 04/09/17 16:45 DC 04/09/17 17:00 4 MG Hydromorphone HCl (Dilaudid Inj) 1 mg Q15M PRN IV 04/09/17 16:45 04/09/17 20:30 DC 04/09/17 18:21 1 MG Tramadol HCl (Ultram Home Pack) 1 homepack UD ONCE PO 04/09/17 19:30 04/09/17 19:31 DC 04/09/17 19:29 1 HOMEPACK ED Course 1640: The patient was evaluated in room B9. A complete history and physical exam was performed. 1643: Ordered Zofran Inj 4 mg IV 1645: Ordered Dilaudid Inj 1 mg IV 1831: I reassessed and updated the patient. 1929: Ordered Tramadol HCl 1 homepack PO 1955: I reevaluated the patient. Discussed results and discharge instructions: he verbalized understanding and agreement. The patient is ready for discharge. Medical Decision Triage Nursing notes reviewed. The patient's presentation and history were concerning for abdominal pain. Etiologies such as incisional hernia, breakdown of mesh, incarcerated hernia, appendicitis, diverticulitis, obstruction, inflammatory bowel disease, renal colic, PUD, biliary pathology, pancreatitis, mesenteric ischemia, aortic pathology, infections, genitourinary, UTI, perforated viscus, as well as others were entertained. Patient was evaluated. He had tenderness around the umbilicus but it was very centrally located. There was some firmness the umbilicus and this raises concern that there may be a hernia present. The patient does have some bulging when he does a sit up almost like a diastasis of the rectus muscles. There is no erythema on the surface. He had blood work obtained. His CBC, chemistry panel, LFTs and lipase were unremarkable. Urinalysis was unremarkable. The patient was given IV Dilaudid and Zofran for symptom control. He was sent to CT for imaging. This revealed no evidence of significant hernia. There was no obstruction or intra-abdominal pathology seen. The patient has postoperative changes in the abdominal wall. There is a small fluid collection of the umbilicus but this is stable compared to prior CT. There is no suggestion of abscess per radiology. The patient is doing well. I discussed conservative management with him. The patient and family will watch the area closely. If he worsens in any way he will be back to the emergency department. Given his surgery following up with general surgery first thing next week will be necessary. The patient was given a home pack of tramadol to use in case he has any recurrence of the pain. I discussed limited amount of medication as continued pain and problems requiring prescription pain management would necessitate a repeat visit. The patient was in agreement with this as well as family. I gave my usual and customary discussion regarding this issue. By the evaluation outlined above other emergent etiologies such as those listed in the differential, as well as others, were deemed relatively unlikely. The patient and family were informed about the findings as listed above. All questions were answered and they were pleased with the treatment. Return instructions were outlined and the patient was discharged in stable condition. The patient was referred to general surgery for follow-up first thing next week for a recheck of the current condition. The chart was completed utilizing [email or web address] voice recognition software. Grammatical errors, random word insertions, pronoun errors, and incomplete sentences are an occasional consequence of this system due to software limitations, ambient noise, and hardware issues. Any formal questions or concerns about the content, text, or information contained within the body of this dictation should be directly addressed to the physician for clarification. Impression Primary Impression: Periumbilical abdominal pain Scribe Attestation The scribe's documentation has been prepared under my direction and personally reviewed by me in its entirety. I confirm that the note above accurately reflects all work, treatment, procedures, and medical decision making performed by me. Departure Information Dispostion Home / Self-Care Referrals Hector Hernandez M.D. (PCP) Forms HOME CARE DOCUMENTATION FORM, IMPORTANT VISIT INFORMATION Patient Instructions My [facility] Additional Instructions ABDOMINAL PAIN INSTRUCTIONS: DO NOT drive, drink alcohol, operate machinery, or perform dangerous activities today. You were given medications in the ER that can affect your ability to safely function or operate a vehicle. Tramadol 50 mg: Take 1 pills every 6 hours as needed for pain. Avoid alcohol, operating machinery or dangerous equipment, working on ladders or roofs, DRIVING , or situations where being under the influence may be dangerous. Rest and drink plenty of fluids as tolerated. Slow sips of water or sports drinks are recommended instead of large amounts all at once. Continue current medications. Once your stomach is settled start with a clear liquid diet (jello, soup broth, etc.) and then advance as tolerated. You should avoid full, heavy meals for about 24 hrs from the time your symptoms resolved. Return to the ER immediately for worsening or persistent abdominal pain, vomiting, fevers, chest pains, difficulty breathing, black or bloody stools, worsening of your condition, or as needed. Follow up with surgery next week for a recheck of your current condition. The number is listed below under Dr. Henriquez.
== END 2017-04-09 19:58 | disposition home or self-care (01) ==
LOC: C.EDB 16:13
DX: R10.33 Periumbilical pain (principal); J45.909 Unspecified asthma, uncomplicated; Z87.442 Personal history of urinary calculi; Z79.899 Other long term (current) drug therapy

== ENCOUNTER 2017-04-11 19:43 | Emergency (ER) | payer OTHER ==
[~2017-04-11] VITALS: Ht 170.2 cm; Wt 102.0 kg
[~2017-04-11 19:43] MED LIST changes: +MELO15TA4 PO
[2017-04-11 19:52] VITALS: TEMP 37.1; Ht 170.2 cm; Wt 102.0 kg
[2017-04-11] MEDS ORDERED: SODIUM CHLORIDE 0.9% 1000ML 1,000 ML IV STA ×3 (20:04→20:25)
[2017-04-11] MEDS ORDERED: ONDANSETRON INJ 2 MG/ML 2 ML VIAL IV STA (20:25)
[2017-04-11] MEDS ORDERED: SODIUM CHLORIDE 0.9% 500ML 500 ML IV STA (20:25)
[2017-04-11] MEDS: HYDROmorphone INJ 0.5 MG/0.5 ML SYR IV PRN ×3 (20:45→22:38)
[2017-04-11 21:09] LABS: URINE APPEARANCE CLEAR (CLEAR); URINE BILIRUBIN NEG (NEG); URINE COLOR YELLOW; URINE EPITHELIAL CELL AUTO 0-5 /lpf (0-5); URINE NITRITE NEG (NEG); URINE PH 6.5 (4.5-7.5); URINE SPECIFIC GRAVITY 1.009 (1.000-1.030); UROBILINOGEN NEG (NEG); ZZUR CULT IF INDIC CLEAN CATCH NO
[2017-04-11 21:15] LABS: MANUAL MICROSCOPIC REQUIRED? NO; REVIEW REQ? NO
[2017-04-11 21:33] LABS: BASO % 0.3 %; BASO ABS # 0.02 K/uL (0-0.2); COMPLETE YES; EOS % 2.1 %; HEMATOCRIT 42.7 % (42-52); IG% 0.2 %; LYMPH % 24.6 %; LYMPH ABS # 1.56 K/uL (1.2-3.4); MEAN CELL VOLUME 92.6 fL (80-100); MEAN CORPUSCULAR HGB CONC 35.6 g/dl (32-36); MEAN PLATELET VOLUME 9.7 fL (7.4-10.4); MONO % 8.5 %; NEUT % 64.3 %; PLATELET COUNT 170 K/uL (130-400); RED BLOOD COUNT 4.61 M/uL (4.7-6.1); WHITE BLOOD COUNT 6.34 K/uL (4.8-10.8)
[2017-04-11 21:46] LABS: ALT/SGPT 29 U/L (12-78); BLOOD UREA NITROGEN 14 mg/dl (7-18); BUN/CREATININE RATIO 12.8 (10-20); CARBON DIOXIDE 26 mmol/L (21-32); CHLORIDE 107 mmol/L (98-107); GLUCOSE 114 mg/dl (70-99); POTASSIUM 3.8 mmol/L (3.5-5.1); SODIUM 142 mmol/L (136-145)
[2017-04-11 21:49] LABS: ALKALINE PHOSPHATASE 81 U/L (45-117); AST/SGOT 20 U/L (15-37)
[2017-04-11 22:09] LABS: CALCIUM 8.7 mg/dl (8.5-10.1)
[2017-04-11] MEDS ORDERED: OPTIRAY 320 IV PRN (23:00)
[2017-04-11] MEDS ORDERED: OXYCODONE IR HOME PACK PO ONE (23:45)
[2017-04-11 23:56] VITALS: BP 147/86; PULSE 64; O2SAT 93
--- NOTE | 2017-04-11 23:56 | EMERGENCY ROOM VISIT NOTE ---
History Report prepared by Heather: Geovanny Poe Under the Supervision of: Dr. Aidan Rodriguez M.D. First contact with patient: 20:03 Chief Complaint: ABDOMINAL PAIN Stated Complaint: HERNIA PAIN History of Present Illness The patient is a 66 year old male who presents to the Emergency Room with complaints of worsening abdominal pain for the past four days. The patient was in the ED two days ago. He has not been able to follow up with surgery over the weekend. The patient came to the ED again because the pain has worsened. He currently rates the pain 7/10 in severity. The pain is localized to the area above the umbilicus. The patient had some relief with Tramadol. Patient denies LOC, headache, fevers, chills, diaphoresis, visual changes, neck pain, chest pain, breathing difficulties, nausea, vomiting, new back pain, melena, hematochezia, urinary symptoms, numbness, weakness, lymphadenopathy, rash, or other complaints. Source of History: patient Onset: four days ago Position: abdomen Symptom Intensity: 7/10 Timing: worsening Modifying Factors (Relieving): other (Tramadol) Review of Systems See HPI for pertinent positives and negatives. A total of ten systems were reviewed and were otherwise negative. Past Medical & Surgical Medical Problems: (1) Asthma (2) Chest pain radiating to arm (3) Chest pain radiating to jaw (4) Insertion of stent into ureter (5) Lumbar spinal stenosis (6) Ureteric stone Surgical Problems: (1) H/O repair of left rotator cuff (2) H/O repair of right rotator cuff (3) History of hernia repair (4) History of lumbar surgery Family History No pertinent family history Social History Smoking Status: Never Smoker Alcohol Use: none Marital Status: Housing Status: lives with significant other Current/Historical Medications Scheduled Cetirizine (Zyrtec), 10 MG PO BID Doxepin (Sinequan), 75 MG PO HS Fluticasone Prop/Salmeterol (Advair Diskus 250/50 60 Dose), 1 PUFF INH BID Meloxicam (Mobic), 15 MG PO DAILY Montelukast Sodium (Singulair), 10 MG PO QAM Allergies Coded Allergies: Sulfa Antibiotics (Verified Allergy, Intermediate, RASH, 04/09/17) POLLEN (Verified Allergy, Mild, RASH ITCHING, 04/09/17) ENVIRONMENTAL ALLERGIES Acetaminophen (Verified Adverse Reaction, Intermediate, nausea, 04/09/17) Oxycodone (Verified Adverse Reaction, Intermediate, nausea, 04/09/17) Cat Dander (Verified Adverse Reaction, Unknown, STUFFINESS, ITCHY, 04/09/17 ) Dog Dander (Verified Adverse Reaction, Unknown, STUFFINESS, ITCHY, 04/09/17 ) Dust (Unverified Adverse Reaction, Unknown, STUFFINESS, 04/09/17) Molds & Smuts (Verified Adverse Reaction, Unknown, STUFFINESS ITCHY, ) Physical Exam Vital Signs Date Time Temp Pulse Resp B/P Pulse Ox O2 Delivery O2 Flow Rate FiO2 04/11/17 23:15 68 18 138/85 93 Room Air 04/11/17 21:50 71 18 130/88 91 Room Air 04/11/17 21:04 75 04/11/17 19:52 37.1 98 18 142/83 92 Room Air Physical Exam GENERAL: Awake, alert, well-appearing, in no distress HENT: Normocephalic, atraumatic. Oropharynx unremarkable. EYES: Normal conjunctiva. Sclera non-icteric. NECK: Supple. No nuchal rigidity. FROM. No JVD. RESPIRATORY: Clear to auscultation. CARDIAC: Regular rate, normal rhythm. Extremities warm and well perfused. Pulses equal. ABDOMEN: Soft, nondistended. Tenderness along the midline upper abdomen. Mild diastasis present. No rebound no guarding. RECTAL: Deferred. MUSCULOSKELETAL: Chest examination reveals no tenderness. The back is symmetrical on inspection without obvious abnormality. There is no CVA tenderness to palpation. No joint edema. LOWER EXTREMITIES: Calves are equal size bilaterally and non-tender. No edema. No discoloration. NEURO: Normal sensorium. No sensory or motor deficits noted. SKIN: No rash or jaundice noted. Medical Decision & Procedures ER Provider Diagnostic Interpretation: CT scan of the abdomen and pelvis reveals no evidence of emergent pathology. No significant change from prior with contrast administration. No findings to suggest etiology of the patient's pain. Laboratory Results 04/11/17 20:45 Red Blood Count 4.61, Mean Corpuscular Volume 92.6, Mean Corpuscular Hemoglobin 33.0, Mean Corpuscular Hemoglobin Concent 35.6, Mean Platelet Volume 9.7, Neutrophils (%) (Auto) 64.3, Lymphocytes (%) (Auto) 24.6, Monocytes (%) (Auto) 8.5, Eosinophils (%) (Auto) 2.1, Basophils (%) (Auto) 0.3, Neutrophils # (Auto) 4.08, Lymphocytes # (Auto) 1.56, Monocytes # (Auto) 0.54, Eosinophils # (Auto) 0.13, Basophils # (Auto) 0.02 04/11/17 20:45 Test 04/11/17 20:45 White Blood Count 6.34 K/uL (4.8-10.8) Red Blood Count 4.61 M/uL (4.7-6.1) Hemoglobin 15.2 g/dL (14.0-18.0) Hematocrit 42.7 % (42-52) Mean Corpuscular Volume 92.6 fL (80-100) Mean Corpuscular Hemoglobin 33.0 pg (25-34) Mean Corpuscular Hemoglobin Concent 35.6 g/dl (32-36) Platelet Count 170 K/uL (130-400) Mean Platelet Volume 9.7 fL (7.4-10.4) Neutrophils (%) (Auto) 64.3 % Lymphocytes (%) (Auto) 24.6 % Monocytes (%) (Auto) 8.5 % Eosinophils (%) (Auto) 2.1 % Basophils (%) (Auto) 0.3 % Neutrophils # (Auto) 4.08 K/uL (1.4-6.5) Lymphocytes # (Auto) 1.56 K/uL (1.2-3.4) Monocytes # (Auto) 0.54 K/uL (0.11-0.59) Eosinophils # (Auto) 0.13 K/uL (0-0.5) Basophils # (Auto) 0.02 K/uL (0-0.2) RDW Standard Deviation 42.8 fL (36.4-46.3) RDW Coefficient of Variation 12.6 % (11.5-14.5) Immature Granulocyte % (Auto) 0.2 % Immature Granulocyte # (Auto) 0.01 K/uL (0.00-0.02) Urine Color YELLOW Urine Appearance CLEAR (CLEAR) Urine pH 6.5 (4.5-7.5) Urine Specific [place] 1.009 (1.000-1.030) Urine Protein NEG (NEG) Urine Glucose (UA) NEG (NEG) Urine Ketones NEG (NEG) Urine Occult Blood NEG (NEG) Urine Nitrite NEG (NEG) Urine Bilirubin NEG (NEG) Urine Urobilinogen NEG (NEG) Urine Leukocyte Esterase MODERATE (NEG) Urine WBC (Auto) 1-5 /hpf (0-5) Urine RBC (Auto) 0-4 /hpf (0-4) Urine Hyaline Casts (Auto) 0 /lpf (0-5) Urine Epithelial Cells (Auto) 0-5 /lpf (0-5) Urine Bacteria (Auto) NEG (NEG) Anion Gap 9.0 mmol/L (3-11) Est Creatinine Clear Calc Drug Dose 73.2 ml/min Estimated GFR () 79.5 Estimated GFR (Non- 68.6 BUN/Creatinine Ratio 12.8 (10-20) Calcium Level 8.7 mg/dl (8.5-10.1) Total Bilirubin 0.5 mg/dl (0.2-1) Direct Bilirubin < 0.1 mg/dl (0-0.2) Aspartate Amino Transf (AST/SGOT) 20 U/L (15-37) Alanine Aminotransferase (ALT/SGPT) 29 U/L (12-78) Alkaline Phosphatase 81 U/L (45-117) Total Protein 7.0 gm/dl (6.4-8.2) Albumin 3.9 gm/dl (3.4-5.0) Lipase 199 U/L (73-393) Laboratory results reviewed by me Medications Administered Medications (Trade) Dose Ordered Sig/Catalina Route Start Time Stop Time Status Last Admin Dose Admin Hydromorphone HCl (Dilaudid Inj) 0.5 mg Q15M PRN IV 04/11/17 20:30 04/25/17 20:29 04/11/17 22:38 0.5 MG Ondansetron HCl (Zofran Inj) 4 mg NOW STAT IV 04/11/17 20:25 04/11/17 20:27 DC 04/11/17 20:25 4 MG ED Course 2003: NSS 1000 ml @ 999 mls/hr, NSS 1000 ml @ 125 mls/hr. 2022: The patient was evaluated in room B8. A complete history and physical exam was performed. 2024: NSS 1000 ml @ 125 mls/hr, NSS 500 ml @ 999 mls/hr, Zofran 4 mg IV. 2029: Dilaudid 0.5 mg IV. 2127: [facility] reviewed. She had multiple prescriptions last year all from Orthopedics regarding past spinal surgery. 2258: Patient reassessed. Feeling better. Waiting CT scan results. 2344: Patient was evaluated. He was feeling better. Reviewed his CAT scan and blood work results. The patient will be discharged to follow-up with general surgery. Patient feel comfortable with plan. Medical Decision Triage Nursing notes reviewed. The patient's presentation and history were concerning for abdominal pain. Etiologies such as complication of hernia, abdominal wall strain, appendicitis, diverticulitis, obstruction, inflammatory bowel disease, renal colic, PUD, biliary pathology, pancreatitis, mesenteric ischemia, aortic pathology, infections, genitourinary, UTI, perforated viscus, as well as others were entertained. The patient was evaluated. He had no peritoneal findings. There is no sign of incarcerated hernia. The patient had pain when he tried to move or sit up. His pain was easily reproducible. He does have a diastases noted. This may be causing pain as he noted this just started a few days ago. Given his continued pain CT imaging with contrast was obtained. The patient was treated with Zofran and Dilaudid. He was feeling better. The patient's diagnostic testing was completely unremarkable. The patient was reassessed. He was doing better. At this point there is no obvious emergent pathology noted. I think the patient is stable and can follow-up with general surgery as recommended. He and his feel very comfortable with this plan. The patient will be giving an oxycodone home pack in case he has any pain until he can see surgery. No prescription was written. By the evaluation outlined above other emergent etiologies such as those listed in the differential, as well as others, were deemed relatively unlikely. The patient and were informed about the findings as listed above. All questions were answered and they were pleased with the treatment. Return instructions were outlined and the patient was discharged in stable condition. The patient was referred to general surgery for follow-up this week for a recheck of the current condition. The chart was completed utilizing [employer] voice recognition software. Grammatical errors, random word insertions, pronoun errors, and incomplete sentences are an occasional consequence of this system due to software limitations, ambient noise, and hardware issues. Any formal questions or concerns about the content, text, or information contained within the body of this dictation should be directly addressed to the physician for clarification. [place] Drug Monitoring Program Search Results: patient reviewed within database Drug Monitoring Findings: he had multiple prescriptions in the last year all from Orthopedics regarding past spinal surgery. Impression Primary Impression: midline abdominal pain Additional Impression: Diastasis of rectus abdominis Scribe Attestation The scribe's documentation has been prepared under my direction and personally reviewed by me in its entirety. I confirm that the note above accurately reflects all work, treatment, procedures, and medical decision making performed by me. Departure Information Dispostion Home / Self-Care Referrals Hector Hernandez M.D. (PCP) Patient Instructions [facility] Additional Instructions ABDOMINAL PAIN INSTRUCTIONS: DO NOT drive, drink alcohol, operate machinery, or perform dangerous activities today. You were given medications in the ER that can affect your ability to safely function or operate a vehicle. Oxycodone (OxyIR) 5mg: Take 1-2 pills every four hours for breakthrough pain. Avoid alcohol, operating machinery or dangerous equipment, working on ladders or roofs, DRIVING, or situations where being under the influence may be dangerous. It is recommended to use an [id number]-inl-[id number] stool softener such as Colace, 100mg twice daily while taking this medication to avoid constipation. Acetaminophen(Tylenol) may be used for fever or pain. Use 1000mg every six hours as needed. Avoid using more than 4000mg in a 24 hour period. Rest and drink plenty of fluids as tolerated. Slow sips of water or sports drinks are recommended instead of large amounts all at once. Continue current medications. No heavy lifting. Once your stomach is settled start with a clear liquid diet (jello, soup broth, etc.) and then advance as tolerated. You should avoid full, heavy meals for about 24 hrs from the time your symptoms resolved. Return to the ER immediately for worsening or persistent abdominal pain, bulging of the abdominal wall that does not resolve, vomiting, fevers, chest pains, difficulty breathing, black or bloody stools, worsening of your condition , or as needed. Follow up with Dr. Henriquez as originally suggested this week for a recheck of your current condition. Problem Qualifiers
--- NOTE | 2017-04-12 07:26 | DIAGNOSTIC IMAGING REPORT ---
CT SCAN OF THE ABDOMEN AND PELVIS WITH IV CONTRAST CLINICAL HISTORY: Periumbilical abdominal pain. COMPARISON STUDY: Abdominal CT dated 04/09/1710 03/14/2015. TECHNIQUE: Following the IV administration of 92 cc of Optiray 320, CT scan of the abdomen and pelvis is performed from the lung bases to the proximal femora. Images are reviewed in the axial, sagittal, and coronal planes. IV contrast was administered without complication. Automated dose control exposure was utilized. CT DOSE: 1058.70 mGy.cm FINDINGS: Lung bases: The heart is mildly enlarged and without pericardial effusion. There are coronary artery calcifications. Linear atelectasis versus scarring is present at both lung bases. There is no airspace consolidation typical for pneumonia or pleural effusion. There is a tiny hiatal hernia. Liver: The contrast-enhanced liver is normal in size, contour, and attenuation. There is no intrahepatic biliary ductal dilatation. The hepatic veins and portal veins are patent. A 2.4 cm low-attenuation lesion in the right lobe of liver seen on image #97 is incomplete characterized but unchanged from 03/14/2015. This likely represents a hemangioma. Gallbladder: Unremarkable. Spleen: Normal in size and attenuation. Pancreas: Unremarkable. Adrenal glands: Unremarkable. Kidneys: The contrast enhanced kidneys are normal in size and without hydronephrosis. The kidneys enhance symmetrically. Bilateral nonobstructing renal calculi measure up to 7 mm. Abdominal vasculature: The abdominal aorta is normal in course and caliber noting mild to moderate atherosclerotic calcification. Bowel: The small bowel and colon are normal in course and caliber. The appendix is well-visualized and normal. Peritoneum: There is no intraperitoneal free air or abdominal ascites. Again seen are postoperative changes from a previous umbilical hernia repair. There is no surrounding inflammatory change. No recurrent hernia is identified. Lymphadenopathy: None. Pelvic viscera: The bladder, prostate, and seminal vesicles are normal as visualized. There is a tiny fat-containing right inguinal hernia. Skeletal structures: No lytic or blastic lesions are seen. There are postoperative changes from lumbar spinal fusion surgery with hardware removal. A fluid collection containing small foci of gas in the posterior paraspinous soft tissues at L4-L5 is similar to previous and measures up to 5 cm. IMPRESSION: 1. There are no acute infectious or inflammatory findings in the abdomen or pelvis. 2. Again seen are postoperative findings from previous mesh repair of an umbilical hernia. There is no evidence of recurrent/residual hernia and no inflammatory change is seen. 3. Bilateral nephrolithiasis. 4. Again seen are postoperative changes from lumbar spinal surgery with hardware removal. A postoperative fluid collection in the posterior soft tissues measures to 5 cm. This likely represents a postoperative seroma. Clinical correlation will be essential. 5. A 2.4 cm lesion in the right lobe of liver is unchanged from 2015. Although incompletely characterized, long-term stability suggests a benign etiology such as hemangioma. 6. Additional changes as above. Electronically signed by: Miguel Currie M.D. 04/12/2017 7:24 AM Dictated Date/Time: 04/12/2017 7:17 AM
== END 2017-04-11 23:57 | disposition home or self-care (01) ==
LOC: C.EDB 19:44
DX: R10.33 Periumbilical pain (principal); M62.08 Separation of muscle (nontraumatic), other site; M99.73 Connective tissue and disc stenosis of intervertebral foramina of lumbar region

== ENCOUNTER → 2017-06-21 | Day surgery (SDC) | payer OTHER ==
[2017-05-31 11:47] VITALS: Ht 170.2 cm; Wt 101.4 kg
[~2017-06-21] VITALS: Ht 170.2 cm; Wt 101.4 kg
[~2017-06-21] MED LIST changes: +500ML BSSPLUS 0.5ML EPI1:1000 IRRIG ONE; +ACETAMINOPHEN 325 MG TAB PO PRN; +ATROPINE SULFATE 0.1 MG/ML 5ML SYR IV PRN; +BSS FLUSH ONE; +BUPIVACAINE HCL 0.75% 10 ML AMP/VIAL ONE; +CEFAZOLIN SOD 1 GM VIAL ONE; +DEXAMETHASONE SOD INJ 4 MG/ML VIAL ONE; +EpHEDrine SULFATE INJ 50 MG/ML AMP IV PRN; +EpINEphrine INJ 1MG/ML AMP 1 MG/ML AMP ONE; -GABA-113 PO; +HYALURONIDASE HUMAN 150 UNIT/ML INJ ONE; +INDOCYANINE GREEN 25 MG/10 ML ONE; +LACTATED RINGER'S 1000ML 500 ML IV SCH; +LIDOCAINE MPF 4% INJ INJ ONE; -MELO15TA4 PO; +MIDAZOLAM HCL 1 MG/ML 2ML VIAL ONE; +NEOMYCIN/POLYMYX/DEXAMETH OP OINT PER APP CHARGE ONE; +OCUCOAT 1 ML SOLN IO ONE; +ONDANSETRON INJ 2 MG/ML 2 ML VIAL IV PRN; -OXYC-57 PO; +POVIDONE-IODINE OP SOLN (SURGERY CNTR CHARGING ONLY) ONE; +PROPARACAINE 0.5% OP SOLN PER DROP CHARGE OPR SCH; +PROPOFOL IV EMULSION 10 MG/ML 20 ML VIAL IV ONE; +TIMOLOL MALEATE 0.5% OP SOLN PER DROP CHARGE ONE; +TRIAMCINOLONE ACETONIDE OPHTH 40 MG/ML VIAL STERILE IO ONE; -XPNIN INH
[2017-06-21] MEDS: PHENYLEPHRINE HCL 2.5% OP SOLN PER DROP CHARGE OPR SCH ×2 (07:30→07:35)
[2017-06-21] MEDS: TROPICAMIDE 1% OP SOLN PER DROP CHARGE OPR SCH ×2 (07:31→07:36)
--- NOTE | 2017-06-21 08:12 | History & Physical Bridge - SC ---
H&P Re-Evaluation Bridge Note: Pt has macular pucker/epiretinal membrane in the right eye and is having vitrectomy right eye. I have examined the patient, reviewed the History & Physical and in the interval since the performance of the History & Physical I have noted the following changes of clinical significance: No changes noted
--- NOTE | 2017-06-21 09:05 | [facility] Operative Report ---
Operative Report Date of Service Jun 21, 2017. Operative Report PREOPERATIVE DIAGNOSIS: Epiretinal membrane, right eye. ICD10: H35.371 POSTOPERATIVE DIAGNOSIS: same. PROCEDURE: 1. Pars plana vitrectomy, 23 gauge. 2. Membrane peeling of the internal limiting membrane and overlying epiretinal membrane. All to the right eye. CPT CODE: 70182 SURGEON: Eugene Montanez D.O. COMPLICATIONS: None. ESTIMATED BLOOD LOSS: None. SPECIMENS: None. ANESTHESIA: Retrobulbar block and MAC. INDICATIONS FOR PROCEDURE: The patient has an epiretinal membrane that is visually significant. Vitrectomy surgery is indicated to decrease risk of vision loss and potentially improve vision. CONSENT: The risks, benefits and alternatives were discussed with the patient including but not limited to decreased visual acuity, failure to achieve desired results, loss of the eye, infection, pain, glaucoma, lens changes, retinal tears, retinal detachment, the need for more procedures, drooping of the eyelid, blindness, and double vision. The patient is aware of risks and consents to the surgery. Consent is signed and on the chart. OPERATION AND FINDINGS: The patient was brought to the operating room where the patient was identified by name, date, and medical record number. The surgical site was confirmed with the informed written consent. The patient was sedated by the anesthesiology team after which a 50:50 mixture of 4% lidocaine and 0.75% bupivacaine with hyaluronidase was administered in a standard retrobulbar fashion. A total of 4 ml was administered without difficulty. The patient was then prepped and draped in the usual sterile manner for retinal surgery. A wire lid speculum was placed and an Juma 23-gauge trocar cannula system was employed. The inferior temporal trocar cannula was first placed in an angled fashion 3.75mm posterior to the surgical limbus and the infusion cannula was inserted into this cannula after which the intravitreal position was verified prior to turning the infusion on. Two more trocar cannulas were then inserted in an angled fashion, one in the superior temporal, and one in the superior nasal quadrant both 3.75mm posterior to the surgical limbus. A light pipe and vitrector were then introduced into the eye and the BIOM wide angle viewing system was brought into place. Standard core vitrectomy was performed the vitreous was insured to be totally detached from the posterior pole with the aid of the vitrector. Next 0.05ml of indocyanine green was placed over the macular surface to stain the internal limiting membrane. This was washed from the eye after 10 seconds. At this point a flat contact lens was placed on the surface of the eye and a flex scraper and ILM forceps were used to gently peel the internal limiting membrane and overlying epiretinal membrane off of the macular surface without difficulty. At this point scleral depression was performed for 360 degrees and no retinal tears or detachments were noted. The trocar cannulas were then removed and found to be water tight. The intraocular pressure was found to be within normal limits by palpation and subconjunctival injections of Kefzol and dexamethasone were administered inferiorly and superiorly. The wire lid speculum was removed. Maxitrol was applied to the surface of the eye. A light patch and shield were taped over the surface of the eye and the patient left the Operating Room in stable condition having tolerated the procedure well. DISPOSITION: The patient has an appointment the following morning in the Ophthalmology Clinic. The patient is to call immediately if there are any problems overnight I attest to the content of the Intraoperative Record and any orders documented therein. Any exceptions are noted below.
--- NOTE | 2017-06-21 09:05 | Discharge Instructions-SurgCtr ---
Discharge Instructions Date of Service Jun 21, 2017. Visit Reason for Visit: Right Eye Epiretinal Membrane Discharge Discharge Diagnosis / Problem: same Discharge Goals Goal(s): Improve function Activity Recommendations Activity Limitations: per Instructions/Follow-up section Anesthesia . Post Anesthesia Instructions: If you have had General Anesthesia or IV Sedation: * Do not drive today. * Resume driving when surgeon permits. * Do not make important decisions or sign legal documents today. * Call surgeon for: 1. Temperature elevations greater than 101 degrees F. 2. Uncontrollable pain. 3. Excessive bleeding. 4. Persistent nausea and vomiting. 5. Medication intolerance (nausea, vomiting or rash). * For nausea and vomiting use only clear liquids such as: tea, soda, bouillon until nausea subsides, then gradually increase diet as tolerated. * If you have any concerns or questions, call your surgeon's office. If physician is unavailable and it is an emergency, call 911 or go to the nearest emergency room. . Instructions / Follow-Up Instructions / Follow-Up * May take Tylenol if needed for discomfort. * Do NOT remove eye shield. * NO straining, heavy lifting (>15 pounds) or bending below waist. * Avoid getting water or soap directly into operative eye. * Do NOT rub eye. If you experience increasing eye pain not relieved by medication, please contact us immediately at [phone]. If you are unable to reach someone at the above number, call [phone] and ask to speak with the EYE DOCTOR WATER TANKER DRIVER. Inform them that you are a Dr. Montanez patient who had recent surgery. Diet Recommendations Home Diet: resume previous diet Procedures Procedures Performed: Right Eye 23 Gauge Vitrectomy, Membrane Peeling Pending Studies Studies pending at discharge: no Medical Emergencies . Who to Call and When: Medical Emergencies: If at any time you feel your situation is an emergency, please call 911 immediately. . Non-Emergent Contact Non-Emergency issues call your: Vice President Of Compliance . . "Provider Documentation" section prepared by Eugene Montanez. .
[2017-06-21 09:08] VITALS: TEMP 36.9
[2017-06-21 09:26] VITALS: BP 132/89; PULSE 71; O2SAT 93
--- NOTE | 2017-06-21 09:35 | Anesthesiology Progress Note ---
Anesthesia Post Op Note Date & Time Jun 21, 2017 at 09:35 Vital Signs Pain Intensity: 0 Vital Signs Past 12 Hours Date Time Temp Pulse Resp B/P (MAP) Pulse Ox O2 Delivery O2 Flow Rate FiO2 06/21/17 09:26 71 16 132/89 (103) 93 Room Air 06/21/17 09:08 36.9 66 16 150/84 (106) 94 Room Air 06/21/17 07:22 36.8 70 22 138/93 (108) 94 Room Air Notes Mental Status: alert / awake / arousable, participated in evaluation Pt Amnestic to Procedure: Yes Nausea / Vomiting: adequately controlled Pain: adequately controlled Airway Patency, RR, SpO2: stable & adequate BP & HR: stable & adequate Hydration State: stable & adequate Anesthetic Complications: no major complications apparent
== END | disposition home or self-care (01) ==
LOC: X.SURG 06:56
PROVIDERS: ATTEND Ophthalmology
DX: H35.371 Puckering of macula, right eye (principal); J45.909 Unspecified asthma, uncomplicated; M06.9 Rheumatoid arthritis, unspecified; K44.9 Diaphragmatic hernia without obstruction or gangrene; Z87.442 Personal history of urinary calculi; G47.33 Obstructive sleep apnea (adult) (pediatric); K21.9 Gastro-esophageal reflux disease without esophagitis

== ENCOUNTER → 2017-07-13 | Outpatient (CLI) | payer OTHER ==
[~2017-07-13] MED LIST changes: -500ML BSSPLUS 0.5ML EPI1:1000 IRRIG ONE; -ACETAMINOPHEN 325 MG TAB PO PRN; -ATROPINE SULFATE 0.1 MG/ML 5ML SYR IV PRN; -BSS FLUSH ONE; -BUPIVACAINE HCL 0.75% 10 ML AMP/VIAL ONE; -CEFAZOLIN SOD 1 GM VIAL ONE; -DEXAMETHASONE SOD INJ 4 MG/ML VIAL ONE; -EpHEDrine SULFATE INJ 50 MG/ML AMP IV PRN; -EpINEphrine INJ 1MG/ML AMP 1 MG/ML AMP ONE; -HYALURONIDASE HUMAN 150 UNIT/ML INJ ONE; -INDOCYANINE GREEN 25 MG/10 ML ONE; -LACTATED RINGER'S 1000ML 500 ML IV SCH; -LIDOCAINE MPF 4% INJ INJ ONE; -MIDAZOLAM HCL 1 MG/ML 2ML VIAL ONE; -NEOMYCIN/POLYMYX/DEXAMETH OP OINT PER APP CHARGE ONE; -OCUCOAT 1 ML SOLN IO ONE; -ONDANSETRON INJ 2 MG/ML 2 ML VIAL IV PRN; -POVIDONE-IODINE OP SOLN (SURGERY CNTR CHARGING ONLY) ONE; -PROPARACAINE 0.5% OP SOLN PER DROP CHARGE OPR SCH; -PROPOFOL IV EMULSION 10 MG/ML 20 ML VIAL IV ONE; -TIMOLOL MALEATE 0.5% OP SOLN PER DROP CHARGE ONE; -TRIAMCINOLONE ACETONIDE OPHTH 40 MG/ML VIAL STERILE IO ONE
[2017-07-13 12:07] LABS: BASO % 0.4 %; BASO ABS # 0.02 K/uL (0-0.2); COMPLETE YES; EOS % 3.1 %; HEMATOCRIT 43.3 % (42-52); IG% 0.2 %; LYMPH % 29.7 %; LYMPH ABS # 1.54 K/uL (1.2-3.4); MEAN CELL VOLUME 96.4 fL (80-100); MEAN CORPUSCULAR HEMOGLOBIN 32.7 pg (25-34); MEAN CORPUSCULAR HGB CONC 33.9 g/dl (32-36); MEAN PLATELET VOLUME 9.5 fL (7.4-10.4); MONO % 8.7 %; NEUT % 57.9 %; PLATELET COUNT 167 K/uL (130-400); RED BLOOD COUNT 4.49 M/uL (4.7-6.1); WHITE BLOOD COUNT 5.19 K/uL (4.8-10.8)
[2017-07-13 12:22] LABS: ALT/SGPT 27 U/L (12-78); AST/SGOT 23 U/L (15-37); BLOOD UREA NITROGEN 14 mg/dl (7-18); BUN/CREATININE RATIO 15.4 (10-20); CALCIUM 8.7 mg/dl (8.5-10.1); CARBON DIOXIDE 29 mmol/L (21-32); CHLORIDE 107 mmol/L (98-107); CHOLESTEROL 151 mg/dl (0-200); GLUCOSE 86 mg/dl (70-99); POTASSIUM 3.9 mmol/L (3.5-5.1); SODIUM 141 mmol/L (136-145); TRIGLYCERIDES 79 mg/dl (0-150); VERY LOW DENSITY LIPOPROT CALC 16 mg/dl
[2017-07-13 12:29] LABS: ALB/GLOB RATIO 1.2 (0.9-2); ALKALINE PHOSPHATASE 75 U/L (45-117); CHOLESTEROL/HDL RATIO 2.5; HDL CHOLESTEROL 61 mg/dl; LDL CHOLESTEROL CALCULATED 74 mg/dl
--- NOTE | 2017-07-20 09:02 | CODING QUERY MEDICAL NECESSITY ---
CQSUPPORTING DIAGNOSIS NEEDED A supporting diagnosis is required for the test/procedure performed on this patient in order for us to be reimbursed by the patient's insurance. Please provide a supporting diagnosis for the following test/procedure listed below next to the test name along with your signature. *If there is no additional diagnosis for this patient that would support the following test/procedure please document that below next to the test/procedure. Test(s)/Procedure(s) that require a supporting diagnosis: DOS 07/13/17 COMPLETE BLOOD COUNT Provider Signature: Date: Thank you Yvonne Gonzales [facility] Information Management Once completed, please kindly fax back to [phone] For questions please call [phone]
== END | disposition home or self-care (01) ==
LOC: C.LAB 10:19
PROVIDERS: ATTEND Internal Medicine
DX: N40.1 Benign prostatic hyperplasia with lower urinary tract symptoms (principal)

== ENCOUNTER 2021-05-02 18:24 | Inpatient (IN) ==
[2021-05-02] MEDS ORDERED: ONDANSETRON INJ 2 MG/ML 2 ML VIAL IV STA (19:08)
--- NOTE | 2021-05-02 19:08 | Emergency Department Note ---
Impression & Plan Lumbar back pain ED Provider Note INFORMANT: Patient ED PROVIDER(S): Aidan Rodriguez MD CHIEF COMPLAINT: Back pain PLAN: Disposition: Admitted Condition: Good Outpatient prescription management: none Referral: None MEDICAL DECISION MAKING: Patient presented to emergency department complaining of severe back pain. He is having difficulty walking. He does not have any bowel or bladder dysfunction is mainly a pain issue in the lumbar region. Despite taking hydrocodone at home on a regular basis he still having pain. The patient had an unremarkable CBC and chemistry panel. The patient's lumbar x-rays show postsurgical changes but no acute problems. Patient was treated with IV Dilaudid and Zofran. He did become somewhat sleepy with this and required some supplemental oxygen but was still having severe pain on movement. I discussed possible options with the patient. He is not doing well enough to go home at this point in time. The patient and were in agreement. He was given IV Toradol, Decadron, and admission was felt to be necessary. Consultation was made with Dr. Francesco Belcher of the [facility] service. Patient was evaluated in the ER for further management. Triage Nursing notes reviewed and agree them. Vital Signs: reviewed and remarkable for no significant abnormalities Differential diagnosis: Musculoskeletal, disc herniation, fracture, metastatic disease, cord compression, discitis, sciatica, cauda equina, infection, aortic disease, renal colic, gastrointestinal, as well as other pathologies. Diagnostics interpreted by me: ECG: none Cardiac Monitoring: none Imaging studies: Lumbar spine x-ray imaging reveals postsurgical changes and hardware. No evidence of acute process. HPI: The patient is a 70 year old male who presents to the Emergency Room with complaints of low back pain. This started years ago and is worsening recently. Called pcp and he directed him here. The patient also notes the following associated symptoms, none. The patient has been using hydrocodone for relieving factors. Current pain is rated as 10/10. Pt denies LOC, headache, fevers, chills, diaphoresis, visual changes, neck pain, chest pain, breathing difficulties, nausea, vomiting, abdominal pain, melena, hematochezia, urinary symptoms, numbness, weakness, lymphadenopathy, rash, or other complaints. ROS: See above HPI for pertinent positives & negatives. A total of 10 systems reviewed and were otherwise negative. PAST MEDICAL HISTORY:See Below , CLBP PAST SURGICAL HISTORY:See Below, spinal fusion FAMILY HISTORY:See Below SOCIAL HISTORY:See Below, HOME MEDICATIONS:See Below ALLERGIES:See Below VITALS:See Below PHYSICAL EXAMINATION: GENERAL: Awake, alert, uncomfortable-appearing, in no distress HENT: Normocephalic, atraumatic. Oropharynx unremarkable. EYES: Normal conjunctiva. Sclera non-icteric. NECK: Inspection normal. Non-tender. Supple. No nuchal rigidity. FROM. No ma sses. RESPIRATORY: Clear to auscultation. No wheezes. No rales. Normal respiratory effort. CARDIAC: Normal rate. Normal rhythm. No murmurs. No rubs. Extremities warm and well perfused. Pulses equal. No JVD. GI: Soft, non-distended. No tenderness to palpation. No rebound or guarding. No masses. RECTAL: Deferred. MUSCULOSKELETAL: Atraumatic. Chest examination reveals no tenderness. The back is symmetrical on inspection without obvious abnormality. There is no CVA tenderness to palpation. No joint edema. LOWER EXTREMITIES: Calves are equal size bilaterally and non-tender. No edema. No discoloration. NEURO: Normal sensorium. No sensory or motor deficits noted. SKIN: No rash or jaundice noted. Aidan Rodriguez MD Past Med/Surg History Medical History (Updated 05/02/21 @ 19:04 by Aidan Rodriguez MD) Arthritis Asthma DOESNT NEED RESC. INH. CONTROLLED WITH SCHEDULED INHALER> BEEN YRS SINCE LAST ATTACK Carpal tunnel syndrome Chest pain radiating to arm Chest pain radiating to jaw Chronic pain syndrome Chronic, continuous use of opioids Depression Encounter for pre-operative examination Hepatomegaly Intractable abdominal pain Etiology of the pain at this time is really unrelated to any acute abdomen patient is fairly comfortable and after discussing with the ER physician felt that the pain was gone and he really did not receive any analgesics this may been self-limiting process from my point of view patient can be discharged and return on a as needed basis Lumbar spinal stenosis Nocturia Osteoarthritis Periumbilical abdominal pain Post laminectomy syndrome Postlaminectomy syndrome of lumbosacral region Shingles rash RECOVERING FROM SHINGLES AT PRESENT> SCABS ARE HEALING OVER AT THIS TIME Sleep apnea CPAP AT HS Umbilical hernia Surgical History H/O arthroscopic knee surgery RIGHT H/O rotator cuff surgery R/L History of carpal tunnel release History of colonoscopy History of hernia repair History of lumbar surgery RODS History of mandibular surgery open right jaw repair Hx of cataract surgery LEFT Family History Brother Lung cancer Myocardial infarction Father Heart disease Myocardial infarction Congestive heart failure Sister Myocardial infarction Mother Cancer COPD (chronic obstructive pulmonary disease) Denies family history of Ovarian cancer Prostate cancer Breast cancer Colorectal cancer Social History Smoking Status: Former smoker Tobacco Type: Cigarettes Age Started Using Tobacco: 12; Age Quit Using Tobacco: 20; Second Hand Exposure: No; Hx Alcohol Use: Yes Alcohol type: beer Alcohol Intake Frequency: Monthly or Less Alcohol Intake Frequency Comment: rarely has a beer Hx Substance Use: No Preferred Language: [place] Island[place] Communication Ability: Effective Visual Impairment: Limited Hearing Ability: Hard of Hearing 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 Beliefs That Will Affect Care: None marital status: Current Living Situation: Spouse current occupational status: retired How many Children do You have: 2 Feels Safe at Home: Yes Childhood Exposure to Second-Hand Smoke: Yes caffeine: Yes (coffee in the morning ) Dental Care, Regularly: Yes Physical Activity Frequency: Does not Exercise Seatbelt Use: always Sunscreen Use: No (doesn't go in the sun ) Assistive Devices: Cane and Glasses Allergies Allergies Allergy/AdvReac Type Severity Reaction Status Date / Time Sulfa (Sulfonamide Allergy Intermediate RASH Verified 05/02/21 18:55 Antibiotics) pollen extracts Allergy Mild RASH Verified 05/02/21 18:55 ITCHING phenytoin Allergy Unknown Verified 05/02/21 18:55 cat dander AdvReac Unknown STUFFINESS, Verified 05/02/21 18:55 ITCHY dog dander AdvReac Unknown STUFFINESS, Verified 05/02/21 18:55 ITCHY mold AdvReac Unknown STUFFINESS Verified 05/02/21 18:55 ITCHY Home Meds Home Medications Medication Instructions Recorded Confirmed doxepin 75 mg PO HS 03/21/19 05/02/21 cetirizine 10 mg capsule 10 mg PO BID 11/27/19 05/02/21 Previous Rx's Medication Instructions Recorded alfuzosin 10 mg tablet,extended 10 mg PO DAILY #90 tab 05/07/20 release 24 hr fluticasone 250 mcg-salmeterol 50 1 inh INH BID #60 ea 11/25/20 mcg/dose blistr powdr for inhalation cholecalciferol (vitamin D3) 1,250 50,000 unit PO .COMPLEX #14 cap 01/15/21 mcg (50,000 unit) capsule cholecalciferol (vitamin D3) 50 2,000 unit PO DAILY #30 cap 01/15/21 mcg (2,000 unit) capsule gabapentin 300 mg capsule 300 mg PO TID #270 cap 01/16/21 duloxetine 30 mg capsule,delayed 30 mg PO .COMPLEX #60 cap 02/13/21 release montelukast 10 mg tablet 10 mg PO QAM #90 tab 02/19/21 hydrocodone 5 mg-acetaminophen 325 1 tab PO QID PRN #120 tab 05/02/21 mg tablet Results & Data (ED) Vital Signs Vital Signs - 24 hr 05/02/21 18:37 Temperature 36.5 C Temperature Source Temporal Artery Scan Pulse Rate 71 Respiratory Rate 18 Blood Pressure 149/100 H Blood Pressure Mean 116 Blood Pressure Position Sitting Pulse Oximetry 93 Oxygen Delivery Method Room Air Sepsis Recent Fever Within 48 Hours No Sepsis New/Unexplained Change in Mental Status No Sepsis Action Taken by Nursing No Action Required Laboratory Data Result diagrams: 05/02/21 19:20 05/02/21 19:20 Lab Results 05/02/21 05/02/21 05/02/21 Range/Units 19:20 19:20 20:36 WBC 5.38 (4.8-10.8) K/uL RBC 4.37 L (4.7-6.1) M/uL Hgb 14.6 (14.0-18.0) g/dL Hct 41.5 L (42-52) % MCV 95.0 (80-100) fL MCH 33.4 (25-34) pg MCHC 35.2 (32-36) g/dL RDW Std Deviation 44.5 (36.4-46.3) fL RDW Coeff of Angelita 12.9 (11.5-14.5) % Plt Count 171 (130-400) K/uL MPV 9.5 (7.4-10.4) fL Immature Gran % (Auto) 0.2 % Neut % (Auto) 62.5 % Lymph % (Auto) 25.5 % Russell % (Auto) 8.2 % Eos % (Auto) 3.2 % Baso % (Auto) 0.4 % Neut # (Auto) 3.37 (1.4-6.5) K/uL Lymph # (Auto) 1.37 (1.2-3.4) K/uL Russell # (Auto) 0.44 (0.11-0.59) K/uL Eos # (Auto) 0.17 (0-0.5) K/uL Baso # (Auto) 0.02 (0-0.2) K/uL Immature Gran # (Auto) 0.01 (0.00-0.02) K/uL Sodium 141 (136-145) mmol/L Potassium 4.0 (3.5-5.1) mmol/L Chloride 108 H (98-107) mmol/L Carbon Dioxide 25 (21-32) mmol/L Anion Gap 8.0 (3-11) BUN 13 (7-18) mg/dl Creatinine 1.17 (0.6-1.4) mg/dl Est Cr Clr Drug Dosing 65.5 ml/min Est GFR ( Amer) 71.8 ml/min Est GFR (Non-Af Amer) 61.9 ml/min BUN/Creatinine Ratio 10.7 (10-20) Glucose 119 H (70-99) mg/dl Calcium 8.8 (8.5-10.1) mg/dl Total Bilirubin 0.6 (0.2-1) mg/dl AST 18 (15-37) U/L ALT 25 (12-78) U/L Alkaline Phosphatase 66 (45-117) U/L Total Protein 7.0 (6.4-8.2) gm/dl Albumin 3.8 (3.4-5.0) gm/dl Globulin 3.2 (2.5-4.0) gm/dl Albumin/Globulin Ratio 1.2 (0.9-2) Urine Color Yellow Urine Appearance Clear (Clear) Urine pH 6.0 (4.5-7.5) Ur Specific [place] 1.011 (1.000-1.030) Urine Protein Negative (Negative) Urine Glucose (UA) Negative (Negative) Urine Ketones Negative (Negative) Urine Blood Negative (Negative) Urine Nitrite Negative (Negative) Urine Bilirubin Negative (Negative) Urine Urobilinogen Negative (Negative) Ur Leukocyte Esterase Negative (Negative) COVID-19 Eval Order 05/02/21 Range/Units 21:15 WBC (4.8-10.8) K/uL RBC (4.7-6.1) M/uL Hgb (14.0-18.0) g/dL Hct (42-52) % MCV (80-100) fL MCH (25-34) pg MCHC (32-36) g/dL RDW Std Deviation (36.4-46.3) fL RDW Coeff of Angelita (11.5-14.5) % Plt Count (130-400) K/uL MPV (7.4-10.4) fL Immature Gran % (Auto) % Neut % (Auto) % Lymph % (Auto) % Russell % (Auto) % Eos % (Auto) % Baso % (Auto) % Neut # (Auto) (1.4-6.5) K/uL Lymph # (Auto) (1.2-3.4) K/uL Russell # (Auto) (0.11-0.59) K/uL Eos # (Auto) (0-0.5) K/uL Baso # (Auto) (0-0.2) K/uL Immature Gran # (Auto) (0.00-0.02) K/uL Sodium (136-145) mmol/L Potassium (3.5-5.1) mmol/L Chloride (98-107) mmol/L Carbon Dioxide (21-32) mmol/L Anion Gap (3-11) BUN (7-18) mg/dl Creatinine (0.6-1.4) mg/dl Est Cr Clr Drug Dosing ml/min Est GFR ( Amer) ml/min Est GFR (Non-Af Amer) ml/min BUN/Creatinine Ratio (10-20) Glucose (70-99) mg/dl Calcium (8.5-10.1) mg/dl Total Bilirubin (0.2-1) mg/dl AST (15-37) U/L ALT (12-78) U/L Alkaline Phosphatase (45-117) U/L Total Protein (6.4-8.2) gm/dl Albumin (3.4-5.0) gm/dl Globulin (2.5-4.0) gm/dl Albumin/Globulin Ratio (0.9-2) Urine Color Urine Appearance (Clear) Urine pH (4.5-7.5) Ur Specific [place] (1.000-1.030) Urine Protein (Negative) Urine Glucose (UA) (Negative) Urine Ketones (Negative) Urine Blood (Negative) Urine Nitrite (Negative) Urine Bilirubin (Negative) Urine Urobilinogen (Negative) Ur Leukocyte Esterase (Negative) COVID-19 Eval Order Covid19 at [facility] Administered Medications Hydromorphone HCl (Hydromorphone Inj 1 Mg/Ml Syringe) 1 mg IV Q15M PRN PRN Reason: Pain Stop: 05/16/21 19:07 Last Admin: 05/02/21 20:46 Dose: 1 mg Documented by: [id number] Admin: 05/02/21 19:22 Dose: 1 mg Documented by: [id number] Discontinued Medications Dexamethasone Sodium Phosphate (DexamethasonePf 10 Mg/Ml Vial) 10 mg IV NOW ONE Stop: 05/02/21 20:34 Last Admin: 05/02/21 20:46 Dose: 10 mg Documented by: [id number] Ketorolac Tromethamine (Ketorolac Tromethamine 15 Mg/Ml Vial) 10 mg IV NOW ONE Stop: 05/02/21 20:34 Last Admin: 05/02/21 20:45 Dose: 10 mg Documented by: [id number] Ondansetron HCl (Ondansetron Inj 2 Mg/Ml 2 Ml Vial) 4 mg IV NOW STA Stop: 05/02/21 19:09 Last Admin: 05/02/21 19:22 Dose: 4 mg Documented by: [id number] Imaging Data Radiologist's Impression: Lumbar Spine X-Ray 05/02/21 19:08 XR lumbar spine min 4V routine CLINICAL HISTORY: low back pain COMPARISON STUDY: Lumbar spine radiographs January 28, 2021. CT lumbar myelogram March 20, 2016. FINDINGS: There is mild to moderate levoscoliosis of the lumbar spine. Previous L4-L5 discectomy with interbody spacer placement as noted. Portions of bilateral pedicle screws at the S1 levels are noted. These are unchanged. Multilevel posterior decompression within the lumbosacral spine is noted. No acute fracture is noted. Anterolisthesis of L5 on S1 is unchanged. Severe multilevel degenerative disc disease and facet arthrosis is present. The appearance of the lumbar spine is similar to radiographs January 28, 2021. There is a 5 mm left renal calculus. IMPRESSION: 1. No acute lumbar spine fracture or subluxation. 2. No change in appearance of the lumbar spine since radiographs of February 07, 2021. 3. Severe multilevel degenerative changes within the lumbar spine. Stable postoperative findings. 4. Mild to moderate levoscoliosis of the lumbar spine. ACT 112: Negative or not required by law. Electronically signed by: Jacob Moore M.D. 05/02/2021 8:10 PM Discharge Plan Visit Data Chief Complaint: Back Injury/Pain Stated Complaint: LOWER BACK PAIN DOWN TO LEFT HIP ED Provider: Aidan Rodriguez Discharge Problem: Lumbar back pain Forms Stand Alone Forms: [employer] Prescriptions Prescriptions: No Action duloxetine 30 mg capsule,delayed release(DR/EC) 30 mg PO .COMPLEX Qty: 60 RF: 2 fluticasone propion-salmeterol [Wixela Inhub] 250-50 mcg/dose blister with device 1 inh INH BID Qty: 60 RF: 3 cholecalciferol (vitamin D3) 50 mcg (2,000 unit) capsule 2,000 unit PO DAILY Qty: 30 RF: 3 cholecalciferol (vitamin D3) 1,250 mcg (50,000 unit) capsule 50,000 unit PO .COMPLEX Qty: 14 RF: 0 montelukast [Singulair] 10 mg tablet 10 mg PO QAM Qty: 90 RF: 3 hydrocodone-acetaminophen 5-325 mg tablet 1 tab PO QID PRN (Reason: pain) Qty: 120 RF: 0 alfuzosin 10 mg tablet extended release 24 hr 10 mg PO DAILY Qty: 90 RF: 3 gabapentin [Neurontin] 300 mg capsule 300 mg PO TID Qty: 270 RF: 3 doxepin 25 mg capsule 75 mg PO HS RF: 0 cetirizine 10 mg capsule 10 mg PO BID RF: 0
[2021-05-02] MEDS: HYDROmorphone INJ 1 MG/ML SYRINGE IV PRN ×2 (19:22→20:46)
[2021-05-02 19:29] LABS: Basophils # (auto) 0.02 K/uL (0-0.2); Basophils % (auto) 0.4 %; Eosinophils # (auto) 0.17 K/uL (0-0.5); Eosinophils % (auto) 3.2 %; Hematocrit (blood only) 41.5 % (42-52); Hemoglobin 14.6 g/dL (14.0-18.0); Immature Granulocytes # (auto) 0.01 K/uL (0.00-0.02); Immature Granulocytes % (auto) 0.2 %; Lymphocytes # (auto) 1.37 K/uL (1.2-3.4); Lymphocytes % (auto) 25.5 %; Mean Corpuscular Hemoglobin 33.4 pg (25-34); Mean Corpuscular Hgb Conc 35.2 g/dL (32-36); Mean Platelet Volume 9.5 fL (7.4-10.4); Monocytes # (auto) 0.44 K/uL (0.11-0.59); Monocytes % (auto) 8.2 %; Neutrophils # (auto) 3.37 K/uL (1.4-6.5); Neutrophils % (auto) 62.5 %; Platelet Count 171 K/uL (130-400); RDW Coefficient of Variation 12.9 % (11.5-14.5); RDW Standard Deviation 44.5 fL (36.4-46.3); Red Blood Count 4.37 M/uL (4.7-6.1); White Blood Count 5.38 K/uL (4.8-10.8)
[2021-05-02 19:47] LABS: Albumin Level 3.8 gm/dl (3.4-5.0); BUN Creatinine Ratio 10.7 (10-20); Calcium 8.8 mg/dl (8.5-10.1); Creatinine Clr Calc Pharmacy 65.5 ml/min; Est GFR (African American) 71.8 ml/min; Est GFR (Non-African American) 61.9 ml/min
[2021-05-02 19:50] LABS: Albumin Globulin Ratio 1.2 (0.9-2); Bilirubin,Total 0.6 mg/dl (0.2-1); Globulin 3.2 gm/dl (2.5-4.0)
--- NOTE | 2021-05-02 20:11 | XRay Report ---
XR lumbar spine min 4V routine CLINICAL HISTORY: low back pain COMPARISON STUDY: Lumbar spine radiographs January 28, 2021. CT lumbar myelogram March 20, 2016. FINDINGS: There is mild to moderate levoscoliosis of the lumbar spine. Previous L4-L5 discectomy with interbody spacer placement as noted. Portions of bilateral pedicle screws at the S1 levels are noted . These are unchanged. Multilevel posterior decompression within the lumbosacral spine is noted. No a cute fracture is noted. Anterolisthesis of L5 on S1 is unchanged. Severe multilevel degenerative disc disease and facet arthrosis is present. The appearance of the lumbar spine is similar to radiographs January 28, 2021. There is a 5 mm left renal calculus. IMPRESSION: 1. No acute lumbar spine fracture or subluxation. 2. No change in appearance of the lumbar spine since radiographs of February 07, 2021. 3. Severe multilevel degenerative changes within the lumbar spine. Stable postoperative findings. 4. Mild to moderate levoscoliosis of the lumbar spine. ACT 112: Negative or not required by law. Electronically signed by: Jacob Moore M.D. 05/02/2021 8:10 PM
[2021-05-02] MEDS ORDERED: KETOROLAC TROMETHAMINE 15 MG/ML VIAL IV ONE (20:33)
[2021-05-02] MEDS ORDERED: dexAMETHasone**PF** 10 MG/ML VIAL IV ONE (20:33)
[2021-05-02 21:21] LABS: Appearance Urine Clear (Clear); Bilirubin Urine Negative (Negative); Blood Urine Negative (Negative); Color Urine Yellow; Glucose Urine UA Negative (Negative); Ketones Urine Negative (Negative); Leukocyte Esterase Urine Negative (Negative); Nitrite Urine Negative (Negative); Protein Urine Negative (Negative); Specific Gravity Urine 1.011 (1.000-1.030); Urobilinogen Urine Negative (Negative)
--- NOTE | 2021-05-02 21:40 | History & Physical Report ---
Date of Service May 02, 2021 Assessment & Plan Admission and Anticipated Discharge Date Admission Date: 70 yo M w/ pMHx. of Arthritis, Asthma, Carpal tunnel, depression and chronic pain presents with acutely worsening left lower back pain since Wednesday here for pain control and to rule out complications Lower back pain, acute on chronic, poorly controlled potentially muscle strain given location although given recent injections will want to rule out abscess currently afebrile, normal HR, denies fevers, normal WBC received Dilaudid and Dexamethasone in the ER which improved his pain - CT lumbar spine ordered to evaluate for abscess - did not order MRI spine given the patient has extensive metal hardware - continue home Hydrocodone - continue home gabapentin 300 TID - Toradol 10 mg Q6H and Dilaudid 0.5 mg Q3H added for pain - Dexamethasone 6 mg Q6H added - Protonix added for GI prophylaxis - consulted pain management - PT and OT order placed Asthma - continue home medications Depression - continue home medications NIMA - continue CPAP Code: full Diet: regular DVT: Heparin History of Present Illness Chief Complaint: low back pain Primary Care Provider: Hector Hernandez MD Jonathan Smallwood is here for left lower back pain that has worsened over the last 3 days that was previously well controlled on his home pain regimen. His back pain was severe which is what brought him to the ER tonight. The pain was 10/10 and radiating down to his left leg prior to admission. His back pain all started in 1975 when he fell down 13 stairs. He has had 8 back surgeries including L4-5 discectomy and L3-S1 fusion. He follows with pain management outside of the hospital and has failed a spinal stimulator trial. He explained that he has chronic weakness in his left leg and uses a cane at baseline. He is currently on Hydrocodone every 6 hours, Gabapentin 300 TID and was not able to tolerate higher doses due to nausea. He is not on Tylenol or NSAIDs and states that they do not work for him. He was most recently seen by Dr. Harris with non-operative management recommended at that time. Allergies Allergy/AdvReac Type Severity Reaction Status Date / Time Sulfa (Sulfonamide Allergy Intermediate RASH Verified 05/02/21 18:55 Antibiotics) pollen extracts Allergy Mild RASH Verified 05/02/21 18:55 ITCHING phenytoin Allergy Unknown Verified 05/02/21 18:55 cat dander AdvReac Unknown STUFFINESS, Verified 06/11/21 18:55 ITCHY dog dander AdvReac Unknown STUFFINESS, Verified 05/02/21 18:55 ITCHY mold AdvReac Unknown STUFFINESS Verified 05/02/21 18:55 ITCHY Home Medications Medication Instructions Recorded Confirmed Type doxepin 75 mg PO HS 03/21/19 05/02/21 History cetirizine 10 mg capsule 10 mg PO BID 11/27/19 05/02/21 History alfuzosin 10 mg tablet,extended 10 mg PO DAILY #90 tab 05/07/20 05/02/21 Rx release 24 hr fluticasone 250 mcg-salmeterol 50 1 inh INH BID #60 ea 11/25/20 05/02/21 Rx mcg/dose blistr powdr for inhalation cholecalciferol (vitamin D3) 1,250 50,000 unit PO .COMPLEX #14 cap 01/15/21 05/02/21 Rx mcg (50,000 unit) capsule cholecalciferol (vitamin D3) 50 2,000 unit PO DAILY #30 cap 01/15/21 05/02/21 Rx mcg (2,000 unit) capsule gabapentin 300 mg capsule 300 mg PO TID #270 cap 01/16/21 05/02/21 Rx duloxetine 30 mg capsule,delayed 30 mg PO .COMPLEX #60 cap 02/13/21 05/02/21 Rx release montelukast 10 mg tablet 10 mg PO QAM #90 tab 02/19/21 05/02/21 Rx hydrocodone 5 mg-acetaminophen 325 1 tab PO QID PRN #120 tab 05/02/21 05/02/21 Rx mg tablet Past Med/Surg History Medical History (Updated 05/03/21 @ 16:17 by Lamar Ram DO) Arthritis Asthma DOESNT NEED RESC. INH. CONTROLLED WITH SCHEDULED INHALER> BEEN YRS SINCE LAST ATTACK Carpal tunnel syndrome Chest pain radiating to arm Chest pain radiating to jaw Chronic pain syndrome Chronic, continuous use of opioids Depression Encounter for pre-operative examination Hepatomegaly Intractable abdominal pain Etiology of the pain at this time is really unrelated to any acute abdomen patient is fairly comfortable and after discussing with the ER physician felt that the pain was gone and he really did not receive any analgesics this may been self-limiting process from my point of view patient can be discharged and return on a as needed basis Lumbar spinal stenosis Nocturia Osteoarthritis Periumbilical abdominal pain Post laminectomy syndrome Postlaminectomy syndrome of lumbosacral region Shingles rash RECOVERING FROM SHINGLES AT PRESENT> SCABS ARE HEALING OVER AT THIS TIME Sleep apnea CPAP AT HS Umbilical hernia Surgical History H/O arthroscopic knee surgery RIGHT H/O rotator cuff surgery R/L History of carpal tunnel release History of colonoscopy History of hernia repair History of lumbar surgery RODS History of mandibular surgery open right jaw repair Hx of cataract surgery LEFT Family History Brother Lung cancer Myocardial infarction Father Heart disease Myocardial infarction Congestive heart failure Sister Myocardial infarction Mother Cancer COPD (chronic obstructive pulmonary disease) Denies family history of Ovarian cancer Prostate cancer Breast cancer Colorectal cancer Social History Smoking Status: Former smoker Tobacco Type: Cigarettes Age Started Using Tobacco: 12; Age Quit Using Tobacco: 20; Smoking End Date: 1979; Second Hand Exposure: No; Do You Dip or Chew Tobacco: No; Tobacco Cessation Education Requested by Patient: No Hx Alcohol Use: Yes Alcohol type: beer Alcohol Intake Frequency: Monthly or Less Alcohol Intake Frequency Comment: rarely has a beer Hx Substance Use: No Preferred Language: Bengali Communication Ability: Effective Visual Impairment: Limited Hearing Ability: Hard of Hearing Consumer Loan Manager Required: No Beliefs That Will Affect Care: None marital status: Current Living Situation: Spouse current occupational status: retired How many Children do You have: 2 Other Information That Helps Us Care for You: No Feels Safe at Home: Yes Safety Concerns: Feels Safe At This Time Childhood Exposure to Second-Hand Smoke: Yes caffeine: Yes (coffee in the morning ) Dental Care, Regularly: Yes Physical Activity Frequency: Does not Exercise Seatbelt Use: always Sunscreen Use: No (doesn't go in the sun ) Assistive Devices: Cane and Glasses Review of Systems Review of Systems: Constitutional: denies fever, chills, nausea, vomiting, night sweats, weight changes Head: denies trauma, LOC, headache, confusion, lightheadedness, vision changes Neurologic: denies syncope, focal weakness admits decreased sensation and tingling in left lower leg Cardiac: denies chest pain, palpitations, orthopnea Pulm.: denies cough, shortness of breath GI: denies diarrhea, constipation : denies urgency, frequency, pain Physical Exam Constitutional: average body habitus; no acute distress Eyes: PERRL, conjunctivae normal, anicteric sclerae ENMT: external ear and nose normal, oropharynx normal Neck: normal visual inspection Respiratory: normal respiratory effort, lungs clear to auscultation Cardiovascular: RRR, no murmur, no edema Gastrointestinal (Abdomen): Inspection/Auscultation: abdomen normal to inspection Percussion/Palpation: abdomen soft; abdomen nontender and no guarding Musculoskeletal: Spine: + limited thoraco-lumbar ROM and + straight leg raise positive - left lumbar paraspinous muscle tenderness with radiation of pain down his left leg Skin: no rashes, warm and dry Neurologic: no focal motor deficits Psychiatric: Orientation: alert and oriented x 3 Eye Contact: good eye contact Speech: no pressured speech Affect: euthymic affect Results & Data Results & Data ([facility]) Vital Signs (Past 12 Hours) Vital Signs Temp Pulse Resp BP Pulse Ox 05/02/21 18:37 36.5 C 71 18 149/100 H 93 CBC Results Results Complete Blood Count Results: RBC 4.48 M/uL (4.7-6.1) L 05/03/21 WBC 6.33 K/uL (4.8-10.8) 05/03/21 Hgb 14.7 g/dL (14.0-18.0) 05/03/21 Hct 42.1 % (42-52) 05/03/21 Plt Count 161 K/uL (130-400) 05/03/21 Chemistry (BMP) Results BMP Results: Sodium 139 mmol/L (136-145) 05/03/21 Potassium 4.6 mmol/L (3.5-5.1) 05/03/21 Chloride 108 mmol/L (98-107) H 05/03/21 BUN 18 mg/dl (7-18) 05/03/21 Creatinine 1.02 mg/dl (0.6-1.4) 05/03/21 Glucose 158 mg/dl (70-99) H 05/03/21 Supervising Physician Co-Signing Physician Notes Attending addendum: I have physically seen this patient, have supervised the medical residents activities, and agree with the H&P unless as otherwise noted. Assessment and Plan: Acute exacerbation of chronic low back pain- Reports that pain improved in the ED when given the dexamethasone and Dilaudid IV Order CT scan of lumbar spine for further assessment. Avoiding MRI due to likely metallic interference from hardware Continue gabapentin 20 mg p.o. 3 times daily Toradol 10 mg IV every 6 hours as needed moderate pain Dilaudid 0.5 mg IV every 3 hours as needed severe pain Dexamethasone 6 mg IV every 6 hours Consult pain management service Asthma- Continue routine inhalers NIMA- Continue CPAP at at bedtime Remaining orders and notations as noted Resident Activity Tracking Resident Involvement: Resident Care Provided Care Provided: Adult [facility]
[2021-05-03] MEDS ORDERED: ONDANSETRON INJ 2 MG/ML 2 ML VIAL IV PRN (00:06)
[2021-05-03] MEDS: HYDROmorphone INJ 0.5 MG/0.5 ML SYR IV PRN ×5 (00:25→22:55)
[2021-05-03] MEDS: DULoxetine HCL 60 MG CAP PO SCH ×2 (01:34→20:16)
[2021-05-03] MEDS: dexAMETHasone 6 MG in SYRINGE 0 ML IV SCH ×6 (01:35→20:15)
[2021-05-03] MEDS: DOXEPIN HCL 75 MG CAPSULE PO SCH ×2 (01:55→20:17)
[2021-05-03] MEDS: GABAPENTIN 300 MG CAP PO SCH ×5 (01:55→20:17)
[2021-05-03 07:14] LABS: Hematocrit (blood only) 42.1 % (42-52); Hemoglobin 14.7 g/dL (14.0-18.0); Immature Granulocytes # (auto) 0.01 K/uL (0.00-0.02); Immature Granulocytes % (auto) 0.2 %; Lymphocytes # (auto) 0.42 K/uL (1.2-3.4); Lymphocytes % (auto) 6.6 %; Mean Corpuscular Hemoglobin 32.8 pg (25-34); Mean Corpuscular Hgb Conc 34.9 g/dL (32-36); Mean Platelet Volume 9.4 fL (7.4-10.4); Monocytes # (auto) 0.05 K/uL (0.11-0.59); Monocytes % (auto) 0.8 %; Neutrophils # (auto) 5.85 K/uL (1.4-6.5); Neutrophils % (auto) 92.4 %; Platelet Count 161 K/uL (130-400); RDW Standard Deviation 44.7 fL (36.4-46.3); Red Blood Count 4.48 M/uL (4.7-6.1); White Blood Count 6.33 K/uL (4.8-10.8)
[2021-05-03 07:35] LABS: BUN Creatinine Ratio 17.9 (10-20); Creatinine Clr Calc Pharmacy 74.9 ml/min; Est GFR (African American) 84.7 ml/min; Est GFR (Non-African American) 73.1 ml/min; Potassium 4.6 mmol/L (3.5-5.1)
--- NOTE | 2021-05-03 08:45 | CT Scan Report ---
CT lumbar spine wo con CLINICAL HISTORY: Low back pain. COMPARISON STUDY: CT lumbar myelogram March 20, 2016. Lumbar spine radiographs May 02, 2021 and [facility] 2020. Lumbar spine MRI April 21, 2016. TECHNIQUE: Axial images of the lumbar spine were obtained without IV contrast. Sagittal and coronal r econstructions were viewed. Automated exposure control was utilized for the study. A dose lowering t echnique was utilized adhering to the principles of ALARA. FINDINGS: For purposes of numbering on this exam, the L5-S1 disc space is assigned to axial image 300 of 359. There is mild levoscoliosis of the lumbar spine. L4-L5 discectomy with interbody spacer plac ement as noted. Pedicle screw fragments at the S1 level are noted. Remainder of the hardware has been removed. Multilevel posterior decompression is noted. There is no acute lumbar spine fracture. No razo spicious lesion is noted by CT. Mild anterolisthesis of L5 on S1 is unchanged since radiographs of [facility] 2020. This may be due to pars defects. There is slight retrolisthesis of L1 on L2. The centra l canal and neural foramen are suboptimally assessed by CT. Central canal stenosis is most pronounced at L2-L3. There is suspected moderate to severe central canal stenosis at this level. There is also suspected central canal stenosis at L1-L2. Multilevel neural foraminal stenosis is also present. Para vertebral soft tissues are unremarkable. Sacroiliac joints are intact. Right renal calculi are partia lly imaged on this exam. Left renal calculi are shown on the special procedures nurse image. IMPRESSION: 1. No acute lumbar spine fracture or subluxation. 2. Postoperative findings within lumbar spine, as above. Suboptimal evaluation of the central canal a nd neural foramen given CT technique. However, suspected central canal stenosis most pronounced at L2 -L3 and multilevel neural foraminal stenosis. 3. Mild levoscoliosis of the lumbar spine. ACT 112: Negative or not required by law. Electronically signed by: Jacob Moore M.D. 05/03/2021 8:44 AM
[2021-05-03] MEDS: ALFUZOSIN HCL 10 MG TAB PO SCH (09:40)
[2021-05-03] MEDS: MONTELUKAST SODIUM 10 MG TABLET PO SCH (09:40)
[2021-05-03] MEDS: HYDROCODONE/ACETAMOPHEN 5/325MG TAB PO PRN (09:41)
[2021-05-03] MEDS: HEPARIN SOD 5,000 UNIT/0.5 ML VIAL SQ SCH ×2 (09:43→20:17)
[2021-05-03] MEDS: FLUTICASONE/VILANTEROL 200/25MCG 14 PUFFS/INHALER INH SCH (09:44)
[2021-05-03] MEDS: KETOROLAC TROMETHAMINE 15 MG/ML VIAL IV PRN ×2 (09:46→20:14)
[2021-05-03] MEDS: PANTOprazole 40 MG in SYRINGE 0 ML IV SCH (11:05)
--- NOTE | 2021-05-03 16:27 | Hospitalist Progress Note ---
Date of Service May 03, 2021 Assessment & Plan (1) Lumbar back pain with radiculopathy affecting left lower extremity: Jonathan Smallwood is a 70 yo M w/ pMHx of arthritis, asthma, carpal tunnel, depression and chronic pain presents with acutely worsening left lower back pain since Wednesday. Significant history of chronic low back pain secondary to 8 back surgeries w/ failed outpatient management. Patient has been admitted for pain control and to rule out complications. Lower back pain, acute on chronic, poorly controlled - Potentially muscle strain given location although given recent steroid injections will want to rule out abscess - Suspect less likely an infection as patient has remained afebrile, normal HR, and normal WBC - Received Dilaudid and Dexamethasone in the ER which improved his pain - CT lumbar spine 05/02: No acute lumbar spine fracture or subluxation. Postopera tive findings within lumbar spine, as above. Suboptimal evaluation of the central canal and neural foramen given CT technique. However, suspected central canal stenosis most pronounced at L2-L3 and multilevel neural foraminal stenosis. Mild levoscoliosis of the lumbar spine. - Unable to obtain MRI spine given extensive metal hardware - Continue home Hydrocodone 5/325 QID prn and home gabapentin 300mg TID - Also added/ordered Toradol 10 mg Q6H prn, Dilaudid 0.5 mg IV Q3H prn, and Dexamethasone 6 mg Q6H - Supplemental O2 prn for respiratory depression associated w/ narcotic use -- patient currently using 2L NC to maintain O2 sat > 90% - Protonix 40mg IV daily added for GI prophylaxis - Consulted pain management. - Monitoring on med/tele for concern of resp suppression - PT and OT order placed; pending Asthma/Allergies - Continue home medications including Breo Ellipta and Singulair Depression - Continue home medications including doxepin and duloxetine NIMA - Continue CPAP qhs Code: full Diet: regular DVT: Heparin (2) Postlaminectomy syndrome of lumbosacral region: (3) Asthma: (4) Sleep apnea: (5) Chronic pain syndrome: (6) Chronic, continuous use of opioids: (7) Depression: Admission and Anticipated Discharge Date Admission Date: May 02, 2021 Supervising Physician Co-Signing Physician Notes Resident Physician Supervision Note: I independently interviewed and examined the patient and verified the see history and physical, reviewed labs and image studies and agree with resident Dr. Ram findings and care plan. Subjective Patient seen and evaluated at bedside this morning. Complains of persistent severe low back pain that radiates down left posterior leg. No specific numbness or tingling. Pain is exacerbated with movement. Is improved with current pain medication regimen. Patient has no acute complaints or concerns. Denies CP, SOB, abd pain, n/v. States that he is eating well and sleeping well. Review of Systems Review of Systems: See HPI Physical Exam Physical Exam: GENERAL: No acute distress. Well developed and well nourished. Vital signs reviewed as above. EYES: EOMI. Anicteric sclerae. HENT: Moist mucous membranes. RESPIRATORY: Clear to auscultation bilaterally. No wheezing, rales, or rhonchi. CARDIOVASCULAR: Regular rate and rhythm. No murmurs. ABDOMEN: Soft, non-tender and non-distended. Normal bowel sounds. BACK: Pain reported with rightward rotation in bed. On palpation, patient complaining of severe tenderness to palpation over lumbar spine and left lumbar paraspinal musculature. Voluntary guarding. EXTREMITIES: No edema. Non-tender. SKIN: Warm, dry. No rashes or lesions. NEUROLOGIC: A/O x3. No focal neurological deficits. PSYCHIATRIC: Cooperative. Appropriate mood and affect. Results & Data Results & Data ([facility]) Vital Signs (Past 12 Hours) Vital Signs Temp Pulse Resp BP Pulse Ox 05/03/21 15:22 36.6 C 70 20 139/69 91 05/03/21 11:54 36.9 C 84 18 132/68 95 05/03/21 08:00 99 05/03/21 07:48 37.0 C 88 20 127/65 99 Resident Activity Tracking Resident Involvement: Resident Care Provided Care Provided: Adult [facility]
[2021-05-04] MEDS: dexAMETHasone 6 MG in SYRINGE 0 ML IV SCH ×4 (03:07→21:24)
--- NOTE | 2021-05-04 05:18 | Billing Data ---
Date of Service May 04, 2021 Coding Level of Care Code 36957 OBS Care - Level 3
[2021-05-04] MEDS: HYDROmorphone INJ 0.5 MG/0.5 ML SYR IV PRN ×4 (07:06→23:09)
[2021-05-04] MEDS: ALFUZOSIN HCL 10 MG TAB PO SCH (08:02)
[2021-05-04] MEDS: GABAPENTIN 300 MG CAP PO SCH ×3 (08:02→21:24)
[2021-05-04] MEDS: MONTELUKAST SODIUM 10 MG TABLET PO SCH (08:02)
[2021-05-04] MEDS: FLUTICASONE/VILANTEROL 200/25MCG 14 PUFFS/INHALER INH SCH (08:03)
[2021-05-04] MEDS: HEPARIN SOD 5,000 UNIT/0.5 ML VIAL SQ SCH ×2 (08:03→21:24)
[2021-05-04] MEDS: HYDROCODONE/ACETAMOPHEN 5/325MG TAB PO PRN ×2 (08:31→11:57)
--- NOTE | 2021-05-04 10:10 | Hospitalist Progress Note ---
Date of Service May 04, 2021 Assessment & Plan (1) Lumbar back pain with radiculopathy affecting left lower extremity: Jonathan Smallwood is a 70 yo M w/ pMHx of arthritis, asthma, carpal tunnel, depression and chronic pain presents with acutely worsening left lower back pain since Wednesday. Significant history of chronic low back pain secondary to 8 back surgeries w/ failed outpatient management. Patient was admitted on 05/02 for pain control and to rule out complications. Lower back pain, acute exacerbation of chronic Potentially muscle strain that has acutely aggravated chronic pain caused by central canal stenosis in lumbar spine (per CT). CT without signs of abscess. Received Dilaudid and Dexamethasone in the ER which improved his pain. - Unable to obtain MRI spine given extensive metal hardware - Pain improving but still with severe pain with minimal ambulation - Continue home Hydrocodone 5/325 QID prn and home gabapentin 300mg TID - Continue Toradol 10 mg Q6H prn, Dilaudid 0.5 mg IV Q3H prn - Supplemental O2 prn for respiratory depression associated w/ narcotic use (has required supplemental O2 intermittently during this hospitalization, without need for O2 at home) - Continue Dexamethasone 6 mg IV Q6H - Protonix 40mg IV daily added for GI prophylaxis - Consulted pain management - appreciate recs - PT and OT order placed - appreciate recs Asthma/Allergies - Continue home medications including Breo Ellipta and Singulair Depression - Continue home medications including doxepin and duloxetine NIMA - Continue CPAP qhs Code: full FEN/GI: regular DVT ppx: Heparin 5000 units SQ Q12H Dispo: med/surg with tele (to monitor closely for respiratory depression) (2) Postlaminectomy syndrome of lumbosacral region: (3) Asthma: (4) Sleep apnea: (5) Chronic pain syndrome: (6) Chronic, continuous use of opioids: (7) Depression: Admission and Anticipated Discharge Date Admission Date: May 02, 2021 Supervising Physician Co-Signing Physician Notes Resident Physician Supervision Note: I independently interviewed and examined the patient and verified the see history and physical, reviewed labs and image studies and agree with resident Dr. aMs findings and care plan. Subjective Pain controlled overnight with Toradol 10mg IV x1 and Dilaudid 0.5mg IV x2. This morning patient reports back pain that is currently mild and controlled with meds. Tolerating diet and keeping O2 sats >90% on RA while eating. Denies fever/chills, chest pain, palpitations, SOB, cough, N/V, abdominal pain, rash. Review of Systems Review of Systems: Pertinent positives and negatives mentioned in HPI. Physical Exam Physical Exam: General: A&Ox3. NAD. Cooperative. HEENT: Atraumatic, normocephalic. Pulm: CTAB A&P. -wheezes, -rales, -rhonchi. Symmetrical chest rise. No increase work of breathing. No respiratory distress. Cardiac: RRR, -mrg. Radial pulses intact and symmetrical. Abdominal: soft, non-tender, non-distended, BS x 4 Back: point tenderness on palpation of lumbar spine Skin: warm, dry, no rash Results & Data Results & Data ([facility]) Vital Signs (Past 12 Hours) Vital Signs Temp Pulse Pulse Resp BP Pulse Ox 05/04/21 06:52 36.4 C L 76 18 126/79 93 05/04/21 04:15 37.0 C 60 18 128/64 92 05/04/21 03:02 66 20 97 05/03/21 23:25 37.0 C 67 20 137/75 92 05/03/21 22:44 18 05/03/21 22:20 64 Resident Activity Tracking Resident Involvement: Resident Care Provided Care Provided: Adult Hospital Medicine
[2021-05-04] MEDS ORDERED: LIDOCAINE 5% 1 PATCH TD PRN (10:46)
[2021-05-04] MEDS ORDERED: DICLOFENAC SOD 1% GEL 100 GM TUBE EXT PRN (10:46)
[2021-05-04] MEDS: PANTOprazole 40 MG in SYRINGE 0 ML IV SCH (10:56)
[2021-05-04] MEDS: DOXEPIN HCL 75 MG CAPSULE PO SCH (21:24)
[2021-05-04] MEDS: DULoxetine HCL 60 MG CAP PO SCH (21:25)
[2021-05-05] MEDS: dexAMETHasone 6 MG in SYRINGE 0 ML IV SCH ×3 (03:25→14:54)
[2021-05-05] MEDS: MONTELUKAST SODIUM 10 MG TABLET PO SCH (08:13)
[2021-05-05] MEDS: ALFUZOSIN HCL 10 MG TAB PO SCH (08:13)
[2021-05-05] MEDS: HYDROmorphone INJ 0.5 MG/0.5 ML SYR IV PRN (08:13)
[2021-05-05] MEDS: GABAPENTIN 300 MG CAP PO SCH ×2 (08:13→13:11)
[2021-05-05] MEDS: HEPARIN SOD 5,000 UNIT/0.5 ML VIAL SQ SCH (08:13)
[2021-05-05] MEDS: FLUTICASONE/VILANTEROL 200/25MCG 14 PUFFS/INHALER INH SCH (08:14)
[2021-05-05 09:01] LABS: BUN Creatinine Ratio 27.3 (10-20); Calcium 9.1 mg/dl (8.5-10.1); Est GFR (African American) 101.4 ml/min; Est GFR (Non-African American) 87.5 ml/min; Potassium 3.9 mmol/L (3.5-5.1)
--- NOTE | 2021-05-05 09:14 | Pain Management Consultation ---
Date of Consultation May 05, 2021 Assessment & Plan (1) Postlaminectomy syndrome of lumbosacral region: Present on Admission?: Yes (2) Acute exacerbation of chronic low back pain: * Patient with reported acute axial low back pain on chronic without c hange in location or characteristic and no change in imaging based on lumbar spine CT. We have nothing interventionally to offer the patient at this time for treatment of his chronic low back pain. He recently failed trigger point injections and has prior history of failure of multiple interventional treatments including spinal cord stimulator trial. We had previously discussed the possibility pursuing intrathecal opiate trial, but the patient had deferred. This remains a potential option moving forward. He may contact the clinic to schedule follow-up outpatient visit to further discuss at his request. * Will further titrate duloxetine to 90 mg daily * Continue with steroid taper and as needed hydrocodone * Would not recommend titration of gabapentin as he is experienced difficulty tolerating greater than 900 mg daily * Will sign off on patient at this time. Please contact pain service for reevaluation as needed. Thank you for allowing us to participate in the care of Mr. Garcia. History of Present Illness Reason for Consultation: Intractable low back and left lower extremity pain Requesting Physician: Juan Lara MD Attending Physician: Severo Mars DO History of Present Illness Mr. Garcia is a 70-year-old white male who is known to the pain service from initial outpatient consultation in January 2021 for evaluation of his chronic axial low back pain. Patient was admitted due to a 1 week history of increased acute on chronic axial low back pain and left greater than right lower extremity radicular pain. His pain is similar in location and characteristic as chronic without change. He denies any recent known injury. The patient has history of prior lumbar spine surgery x8 most recently with Dr. Live in 2018 without improvement in complaints. Patient has previously failed multiple interventional treatment as well as spinal cord stimulator trial. Myoneural trigger point injections were completed the time of his outpatient pain clinic evaluation and he was initiated on duloxetine therapy. He had reported significant relief of his typical pain lasting for a few days only with gradual symptom recurrence. He believes that duloxetine therapy titrated to 60 mg daily has been somewhat effective at diminishing his chronic axial low back pain. He continues to be prescribed this medication by his PCP. Patient continues to report his pain is predominantly axial at 80-90% with a 10-20% radiating component in the left lower extremity in a nondermatomal pattern. Patient indicates that his pain is currently an 8/10. He indicates his pain is exacerbated with any ambulatory activities. He denies bowel or bladder incontinence or saddle anesthesias. He denies any recent falls or injuries. Patient has no further constitutional complaints. Plan of care discussed with Dr. Nicole. Pain Assessment Pain scale - at its best (0-10): 6 Pain scale - at its worst (0-10): 8 Allergies Allergy/AdvReac Type Severity Reaction Status Date / Time Sulfa (Sulfonamide Allergy Intermediate RASH Verified 05/02/21 18:55 Antibiotics) pollen extracts Allergy Mild RASH Verified 05/02/21 18:55 ITCHING phenytoin Allergy Unknown Verified 05/02/21 18:55 cat dander AdvReac Unknown STUFFINESS, Verified 05/02/21 18:55 ITCHY dog dander AdvReac Unknown STUFFINESS, Verified 05/02/21 18:55 ITCHY mold AdvReac Unknown STUFFINESS Verified 05/02/21 18:55 ITCHY Home Medications Medication Instructions Recorded Confirmed Type doxepin 75 mg PO HS 03/21/19 05/02/21 History cetirizine 10 mg capsule 10 mg PO BID 11/27/19 05/02/21 History alfuzosin 10 mg tablet,extended 10 mg PO DAILY #90 tab 05/07/20 05/02/21 Rx release 24 hr fluticasone 250 mcg-salmeterol 50 1 inh INH BID #60 ea 11/25/20 05/02/21 Rx mcg/dose blistr powdr for inhalation cholecalciferol (vitamin D3) 1,250 50,000 unit PO .COMPLEX #14 cap 01/15/21 05/02/21 Rx mcg (50,000 unit) capsule cholecalciferol (vitamin D3) 50 2,000 unit PO DAILY #30 cap 01/15/21 05/02/21 Rx mcg (2,000 unit) capsule gabapentin 300 mg capsule 300 mg PO TID #270 cap 01/16/21 05/02/21 Rx duloxetine 30 mg capsule,delayed 30 mg PO .COMPLEX #60 cap 02/13/21 05/02/21 Rx release montelukast 10 mg tablet 10 mg PO QAM #90 tab 02/19/21 05/02/21 Rx hydrocodone 5 mg-acetaminophen 325 1 tab PO QID PRN #120 tab 05/02/21 05/02/21 Rx mg tablet Pain History Pain Location Full Body Front + Back: 1. Axial low back pain left greater than right-sided 2. Left lower extremity radicular pain-nondermatomal Pain Intensity Pain scale - at its best (0-10): 6 Pain scale - at its worst (0-10): 8 Patient History Medical History (Updated 05/05/21 @ 11:17 by Corona Barbour PA-C) Acute exacerbation of chronic low back pain Arthritis Asthma DOESNT NEED RESC. INH. CONTROLLED WITH SCHEDULED INHALER> BEEN YRS SINCE LAST ATTACK Carpal tunnel syndrome Chest pain radiating to arm Chest pain radiating to jaw Chronic pain syndrome Chronic, continuous use of opioids Depression Encounter for pre-operative examination Hepatomegaly Intractable abdominal pain Etiology of the pain at this time is really unrelated to any acute abdomen patient is fairly comfortable and after discussing with the ER physician felt that the pain was gone and he really did not receive any analgesics this may been self-limiting process from my point of view patient can be discharged and return on a as needed basis Lumbar spinal stenosis Nocturia Osteoarthritis Periumbilical abdominal pain Post laminectomy syndrome Postlaminectomy syndrome of lumbosacral region Shingles rash RECOVERING FROM SHINGLES AT PRESENT> SCABS ARE HEALING OVER AT THIS TIME Sleep apnea CPAP AT HS Umbilical hernia Surgical History H/O arthroscopic knee surgery RIGHT H/O rotator cuff surgery R/L History of carpal tunnel release History of colonoscopy History of hernia repair History of lumbar surgery RODS History of mandibular surgery open right jaw repair Hx of cataract surgery LEFT Family History Brother Lung cancer Myocardial infarction Father Heart disease Myocardial infarction Congestive heart failure Sister Myocardial infarction Mother Cancer COPD (chronic obstructive pulmonary disease) Denies family history of Ovarian cancer Prostate cancer Breast cancer Colorectal cancer Social History Smoking Status: Former smoker Tobacco Type: Cigarettes Age Started Using Tobacco: 12; Age Quit Using Tobacco: 20; Smoking End Date: 1979; Second Hand Exposure: No; Do You Dip or Chew Tobacco: No; Tobacco Cessation Education Requested by Patient: No Hx Alcohol Use: Yes Alcohol type: beer Alcohol Intake Frequency: Monthly or Less Alcohol Intake Frequency Comment: rarely has a beer Hx Substance Use: No Preferred Language: Omani Communication Ability: Effective Visual Impairment: Limited Hearing Ability: Hard of Hearing 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: No Beliefs That Will Affect Care: None marital status: Current Living Situation: Spouse current occupational status: retired How many Children do You have: 2 Other Information That Helps Us Care for You: No Feels Safe at Home: Yes Safety Concerns: Feels Safe At This Time Childhood Exposure to Second-Hand Smoke: Yes caffeine: Yes (coffee in the morning ) Dental Care, Regularly: Yes Physical Activity Frequency: Does not Exercise Seatbelt Use: always Sunscreen Use: No (doesn't go in the sun ) Assistive Devices: None Physical Exam Physical Exam: General: Patient lying quietly in exam room in no acute distress reporting his pain is an 8/10. Patient was able to logroll towards his right side for physical exam without limitation or discomfort. Speech and thought process appropriate. Mood and affect appropriate. Cognition intact. Head: Normocephalic and atraumatic. ENT: No evidence of nasal or oral mucosal lesions. Mucous membranes are moist. Poor dentition. Eyes: Pupils equal round reactive to light. Abdomen: Soft and nondistended. No organomegaly. Bowel sounds active. Back/spine: Complete loss of lumbar lordosis. Well-healed midline surgical incision over the entire lumbar spine. Patient is diffusely tender over the left mid and lower lumbar paravertebral musculature with slightly hyperalgesia extending into the quadratus lumborum. No appreciable spasm of the paravertebral and no evidence of myoneural trigger points on today's physical exam. Patient minimally tender on the right. No definitive myoneural trigger points present on the right. Lower extremities: SLR negative bilaterally. Increased axial pain was appre ciated bilaterally straight leg raising. Significant guarding with lower extremity exam. Strength testing 4+/5 throughout. Sensation intact without deficit. Neurologic: Cranial nerves grossly intact. Ambulatory not witnessed. Results (Pain Clinic) Diagnostic Review CT: non enhanced CT Findings: [facility], [id number] CT Scan Report Patient: EDUARDO GARCIA Date: 05/02/21#: [id number]: [facility] ID:[id number]: Date: 1950City Zip: [place], [place] [address]Rrh: 70Location: 2SSex: MRoom/Bed: [id number] Phy: Aleida Simpson MDDiagnosis: PAIN MANAGEMENTPri Phy: Hector Hernandez MDService Date: 05/02/21Fam Phy:Interpreting Phy: Jacob Moore MDAdmit Phy: Juan Lara MD Ordering Phy: Juan Lara MD cc: ~ CT lumbar spine wo con CLINICAL HISTORY: Low back pain. COMPARISON STUDY: CT lumbar myelogram March 20, 2016. Lumbar spine radiographs May 02, 2021 and January 28, 2021. Lumbar spine MRI April 21, 2016. TECHNIQUE: Axial images of the lumbar spine were obtained without IV contrast. Sagittal and coronal reconstructions were viewed. Automated exposure control was utilized for the study. A dose lowering technique was utilized adhering to the principles of ALARA. FINDINGS: For purposes of numbering on this exam, the L5-S1 disc space is assigned to axial image 300 of 359. There is mild levoscoliosis of the lumbar spine. L4-L5 discectomy with interbody spacer placement as noted. Pedicle screw fragments at the S1 level are noted. Remainder of the hardware has been removed. Multilevel posterior decompression is noted. There is no acute lumbar spine fracture. No suspicious lesion is noted by CT. Mild anterolisthesis of L5 on S1 is unchanged since radiographs of February 07, 2021. This may be due to pars defects. There is slight retrolisthesis of L1 on L2. The central canal and neural foramen are suboptimally assessed by CT. Central canal stenosis is most pronounced at L2-L3. There is suspected moderate to severe central canal stenosis at this level. There is also suspected central canal stenosis at L1-L2. Multilevel neural foraminal stenosis is also present. Paravertebral soft tissues are unremarkable. Sacroiliac joints are intact. Right renal calculi are partially imaged on this exam. Left renal calculi are shown on the geophysical prospecting permit agent image. IMPRESSION: 1. No acute lumbar spine fracture or subluxation. 2. Postoperative findings within lumbar spine, as above. Suboptimal evaluation of the central canal and neural foramen given CT technique. However, suspected central canal stenosis most pronounced at L2-L3 and multilevel neural foraminal stenosis. 3. Mild levoscoliosis of the lumbar spine. ACT 112: Negative or not required by law. Electronically signed by: Jacob Moore M.D. 05/03/2021 8:44 AM Dictated: 05/03/21835Transcribed: 05/03/21836 Radiology: reports reviewed and images reviewed Radiology Findings: [facility], [id number] XRay Report Patient: EDUARDO GARCIA Date: 05/02/21MR#: [id number]: 140 [facility] ID:[id number]: Date: 1950[facility] Zip: [place] [id number]: 70Location: EDSex: MRoom/Bed:Att Phy:Diagnosis: LOWER BACK PAIN DOWN TO LEFT HIPPri Phy: Hector Hernandez MDService Date: 05/02/21Fa Phy:Interpreting Phy: Jacob Moore MDAdmit Phy: Ordering Phy: Aidan Rodriguez MD cc: ~ XR lumbar spine min 4V routine CLINICAL HISTORY: low back pain COMPARISON STUDY: Lumbar spine radiographs January 28, 2021. CT lumbar myelogram March 20, 2016. FINDINGS: There is mild to moderate levoscoliosis of the lumbar spine. Previous L4-L5 discectomy with interbody spacer placement as noted. Portions of bilateral pedicle screws at the S1 levels are noted. These are unchanged. Multilevel posterior decompression within the lumbosacral spine is noted. No acute fracture is noted. Anterolisthesis of L5 on S1 is unchanged. Severe multilevel degenerative disc disease and facet arthrosis is present. The appearance of the lumbar spine is similar to radiographs January 28, 2021. There is a 5 mm left renal calculus. IMPRESSION: 1. No acute lumbar spine fracture or subluxation. 2. No change in appearance of the lumbar spine since radiographs of February 07, 2021. 3. Severe multilevel degenerative changes within the lumbar spine. Stable postoperative findings. 4. Mild to moderate levoscoliosis of the lumbar spine. ACT 112: Negative or not required by law. Electronically signed by: Jacob Moore M.D. 05/02/2021 8:10 PM Dictated: 05/02/212000Transcribed: 05/02/212007
--- NOTE | 2021-05-05 09:41 | Hospitalist Progress Note ---
Date of Service May 05, 2021 Assessment & Plan (1) Lumbar back pain with radiculopathy affecting left lower extremity: Jonathan Smallwood is a 70 yo M w/ pMHx of arthritis, asthma, carpal tunnel, depression and chronic pain presents with acutely worsening left lower back pain since Wednesday. Significant history of chronic low back pain secondary to 8 back surgeries w/ failed outpatient management. Patient was admitted on 05/02 for pain control and to rule out complications. Lower back pain, acute on chronic, poorly controlled Potentially muscle strain that has acutely aggravated chronic pain caused by central canal stenosis in lumbar spine (per CT); CT without signs of abscess Pain management consulted: Patient recently failed trigger point injections and multiple other interventions including spinal cord stimulator Patient has declined trial of intrathecal opiates, though this remains an option Patient can follow up with pain management on an outpatient basis if desired Further titrating duloxetine to 90mg daily Pain recommends against uptitration of gabapentin as patient has not tolerated greater than 900mg daily in the past Continue home hydrocodone 5/325mg qid, home gabapentin 300mg tid Continue toradol 10mg q6h prn Continue dilauded 0.5mg IV q3h prn Continue dexamethasone 6mg IV q6h PT/OT consulted Continue supplemental O2, wean as tolerated; suspected increased oxygen requirement secondary to increased narcotic use Asthma, allergies Continue home medications including Breo Ellipta and Singulair Depression Continue home medications including doxepin and duloxetine NIMA Continue CPAP qhs Code: full FEN/GI: regular DVT ppx: heparin Dispo: med/surg tele (2) Postlaminectomy syndrome of lumbosacral region: (3) Asthma: (4) Sleep apnea: (5) Chronic pain syndrome: (6) Chronic, continuous use of opioids: (7) Depression: Admission and Anticipated Discharge Date Admission Date: May 04, 2021 Subjective Patient seen and evaluated at bedside this morning. No acute events overnight. Patient reports improved pain control compared to yesterday. Patient denies CP, SOB, abdominal pain, nausea, vomiting, numbness, tingling, weakness, or other complaints. Review of Systems Review of Systems: See HPI Physical Exam Physical Exam: Constitutional: well-appearing, no acute distress CV: regular rhythm, no murmur appreciated, extremities well-perfused Resp: CTABL, no wheezes/rales/rhonchi appreciated, no increased work of breathing MSK: tenderness to palpation over the lumbar paraspinal muscles Skin: warm, dry, no rash appreciated Neuro: AOx4, no focal neurological deficits appreciated Results & Data Results & Data ([facility]) Vital Signs (Past 12 Hours) Vital Signs Temp Pulse Pulse Resp BP Pulse Ox 05/05/21 07:16 36.5 C 71 20 163/87 H 96 05/05/21 03:20 36.7 C 68 20 161/89 H 94 05/05/21 02:10 62 18 93 05/04/21 23:53 68 05/04/21 23:47 60 18 92 05/04/21 22:57 36.6 C 66 20 156/83 H 92
[2021-05-05] MEDS: PANTOprazole 40 MG in SYRINGE 0 ML IV SCH (10:23)
[2021-05-05] MEDS: HYDROCODONE/ACETAMOPHEN 5/325MG TAB PO PRN (12:26)
--- NOTE | 2021-05-05 16:59 | Discharge Summary ---
Date of Service May 05, 2021 Admission HPI Per Admitting Provider Jonathan Smallwood is here for left lower back pain that has worsened over the last 3 days that was previously well controlled on his home pain regimen. His back pain was severe which is what brought him to the ER tonight. The pain was 10/10 and radiating down to his left leg prior to admission. His back pain all started in 1975 when he fell down 13 stairs. He has had 8 back surgeries including L4-5 discectomy and L3-S1 fusion. He follows with pain management outside of the hospital and has failed a spinal stimulator trial. He explained that he has chronic weakness in his left leg and uses a cane at baseline. He is currently on Hydrocodone every 6 hours, Gabapentin 300 TID and was not able to tolerate higher doses due to nausea. He is not on Tylenol or NSAIDs and states that they do not work for him. He was most recently seen by Dr. Harris with non-operative management recommended at that time. Admission Exam Per Admitting Provider Constitutional: average body habitus; no acute distress Eyes: PERRL, conjunctivae normal, anicteric sclerae ENMT: external ear and nose normal, oropharynx normal Neck: normal visual inspection Respiratory: normal respiratory effort, lungs clear to auscultation Cardiovascular: RRR, no murmur, no edema Gastrointestinal (Abdomen): Inspection/Auscultation: abdomen normal to inspection Percussion/Palpation: abdomen soft; abdomen nontender and no guarding Musculoskeletal: Spine: + limited thoraco-lumbar ROM and + straight leg raise positive - left lumbar paraspinous muscle tenderness with radiation of pain down his left leg Skin: no rashes, warm and dry Neurologic: no focal motor deficits Psychiatric: Orientation: alert and oriented x 3 Eye Contact: good eye contact Speech: no pressured speech Affect: euthymic affect Principal Diagnosis Low back pain Discharge Exam Constitutional: well-appearing, no acute distress CV: regular rhythm, no murmur appreciated, extremities well-perfused Resp: CTABL, no wheezes/rales/rhonchi appreciated, no increased work of breathing MSK: tenderness to palpation over the lumbar paraspinal muscles Skin: warm, dry, no rash appreciated Neuro: AOx4, no focal neurological deficits appreciated Discharge Data Allergies Allergy/AdvReac Type Severity Reaction Status Date / Time Sulfa (Sulfonamide Allergy Intermediate RASH Verified 05/02/21 18:55 Antibiotics) pollen extracts Allergy Mild RASH Verified 05/02/21 18:55 ITCHING phenytoin Allergy Unknown Verified 05/02/21 18:55 cat dander AdvReac Unknown STUFFINESS, Verified 05/02/21 18:55 ITCHY dog dander AdvReac Unknown STUFFINESS, Verified 05/02/21 18:55 ITCHY mold AdvReac Unknown STUFFINESS Verified 05/02/21 18:55 ITCHY Consultations 05/02/21 20:33 ED Decision to Admit Stat 05/02/21 23:41 Consult Pain Management Routine Ordered Studies 05/02/21 21:34 CT lumbar spine wo con Urgent Hospital Course (1) Lumbar back pain with radiculopathy affecting left lower extremity: [id number]-[id number] low back pain On admission, patient was treated with IV dexamethasone as well as both opioid and non-opioid pain meds. CT lumbar spine was performed and was without signs of abscess or other new acute process. Pain management was consulted and recommended increasing duloxetine to 90mg daily; otherwise, they felt patient's pain regimen was optimized. Patient was discharged on hospital day four in stable condition with a 14-day prednisone taper. Close PCP follow-up was recommended, and Pain Management follow-up was encouraged. Asthma, allergies Patient's home medication regimen was continued during his hospitalization. Depression Patient's duloxetine dose was increased during his stay, as noted above. His home regimen was continued otherwise. NIMA Patient's CPAP was continued during his hospitalization. Total Time Total Time Spent Total Time Spent (In Minutes): 20 Total Time Includes: Examination of the Patient, Discharge Planning and Medication Reconciliation Discharge Plan Discharge Items Patient Disposition: Home - Self-Care Reason For Visit: PAIN MANAGEMENT Discharge Diagnosis: Low back pain Activity: Resume your previous activity Non-emergency contact: Primary Care Provider and Specialist Call non-emergency contact if: your symptoms worsen and your pain is worsening Follow-up/Referrals: Hector Hernandez MD [Primary Care Provider] - (Patient to make his own appointment.) Diet: Regular Addtl Attending Provider Instructions: You were admitted to the hospital for low back pain. You were treated with steroids and pain medicines. The pain specialist was consulted, and felt your pain regimen at the moment is optimized. [facility] is more than happy to see you in their outpatient clinic for further management of your pain. If you would like to see them in clinic, their phone number is listed below. A discharge summary will be sent to your primary care physician to ensure continuity of care. Please bring this discharge summary with you to your next office appointment so that your provider can review it at that time. Follow-up appointments: Make a follow-up appointment with your PCP within the next week. It is very important that you follow up with them shortly after discharge from the hospital. Feel free to make another appointment with Dr. Nicole of Pain Management if you'd like to discuss your long-term pain management. His office can be reached at [phone]. Keep all your follow-up appointments as already scheduled. If you cannot make an appointment, notify your provider. Medications: Your medication list has been reviewed and reconciled upon discharge to ensure accuracy and continuity of care. An updated list of all your medications is included with your hospital discharge paperwork. Please review this list closely, and make note of any changes. * We are increasing your dose of duloxetine. Take duloxetine 30mg (one tablet) each morning and 60mg (two tablets) each night. * We sent a new medication called prednisone to your pharmacy. Prednisone is a steroid medication. Your dose of prednisone will go down over time: * May 06 and : take prednisone 60mg (six tablets) once daily * May 08 and : take prednisone 50mg (five tablets) once daily * May 10 and : take prednisone 40mg (four tablets) once daily * May 12 and : take prednisone 30mg (three tablets) once daily * May 14 and : take prednisone 20mg (two tablets) once daily * May 16 and : take prednisone 10mg (one tablet) once daily * May 18 and : take prednisone 5mg (one half tablet) once daily * May 20: stop taking prednisone Take your medications as instructed; do not skip a dose of your medicines. Make sure all of your doctors know every medicine you are taking (including amwb-amp-mthxplc medicines, vitamins, and supplements). Call your primary care provider before taking any new medicines (including fgrg-pxe-kachxwd medicines, vitamins, and supplements), because some of these may interact with your current medications, or may make your symptoms worse. Tell your primary care provider if you cannot afford your medications. CONTACT YOUR PRIMARY CARE PROVIDER if you experience any of the following: Worsening back pain Fever or chills Difficulty following your treatment plan, or difficulty taking medications CALL 911 OR GO TO THE EMERGENCY DEPARTMENT if you experience any of the following: Inability to control your bowels or bladder Sudden, severe abdominal pain or nausea/vomiting Severe chest pain, or chest pain that radiates (moves) to your jaw or arm Sudden, severe shortness of breath or difficulty breathing Thank you for allowing us to participate in your care. Pending Studies at Discharge: No Stand-Alone Forms: [facility] Medications and DC Order Prescriptions: New duloxetine 30 mg Capsule,Delayed Release(Dr/Ec) 30 mg PO QAM Qty: 30 RF: 0 prednisone 10 mg tablet See Rx Instructions .ROUTE .COMPLEX Qty: 43 RF: 0 Continued duloxetine 30 mg capsule,delayed release(DR/EC) 30 mg PO .COMPLEX Qty: 60 RF: 2 fluticasone propion-salmeterol [Wixela Inhub] 250-50 mcg/dose blister with device 1 inh INH BID Qty: 60 RF: 3 cholecalciferol (vitamin D3) 50 mcg (2,000 unit) capsule 2,000 unit PO DAILY Qty: 30 RF: 3 cholecalciferol (vitamin D3) 1,250 mcg (50,000 unit) capsule 50,000 unit PO .COMPLEX Qty: 14 RF: 0 montelukast [Singulair] 10 mg tablet 10 mg PO QAM Qty: 90 RF: 3 hydrocodone-acetaminophen 5-325 mg tablet 1 tab PO QID PRN (Reason: pain) Qty: 120 RF: 0 alfuzosin 10 mg tablet extended release 24 hr 10 mg PO DAILY Qty: 90 RF: 3 gabapentin [Neurontin] 300 mg capsule 300 mg PO TID Qty: 270 RF: 3 doxepin 25 mg capsule 75 mg PO HS RF: 0 cetirizine 10 mg capsule 10 mg PO BID RF: 0 Discharge Orders: Discharge Order (Routine); Ordered 05/05/21 Ordered By: Ramez Riggins Admission Data Admit Date/Time: 05/04/21 09:57 Attending Provider: Severo Mars Admit Provider: Juan Lara Primary Care Provider: Hector Hernandez Other Providers: Francesco Belcher ; Keisha Dumont Other Interventions: Discharge Summary Assessment (RN) Last Done: 05/05/21 16:54 Supervising Physician Co-Signing Physician Notes I also saw the patient concurrent the resident physician and confirmed see portions of the history and physical examination. Upon exam, the patient noted that his pain had improved, though he was going to attempt ambulation to see how he felt. Pain management had seen the patient as well; recommendations reviewed with the patient. He will follow with pain management as an outpatient with regards to potential implantable stimulator. Exam Blood pressure 134/72, heart rate 61, respiratory 18, pulse oximetry 95% on 2 L via nasal cannula He is alert and oriented. No distress appreciated. Heart regular rate and rhythm. Respirations are nonlabored Data Hemoglobin 14.7, platelet count 161 BUN 23, creatinine 0.[address] showed no acute lumbar spine fracture or subluxation, postoperative findings in the lumbar spine, spinal stenosis most pronounced at L2-L3. Impression and plan Low back pain, acute on chronic Convert dexamethasone to oral prednisone Trial of oral opioid medications Follow-up with pain management as an outpatient Additional diagnoses per resident documentation Resident Activity Tracking Resident Involvement: Resident Care Provided Care Provided: Adult Hospital Medicine
[2021-05-06] MEDS ORDERED: DULoxetine HCL 30 MG CAP PO SCH (09:00)
== END 2021-05-05 17:32 | disposition home or self-care (01) | DRG 552 ==
LOC: ED 18:24 → 2S 18:24 → SUATTDRO 22:16 → 2S 23:12 → 2N 05-03 15:13 → SUATTDRO 05-04 09:57 → 2N 05-04 16:38

== ENCOUNTER 2021-06-18 20:37 | Observation (INO) ==
[2021-06-18] MEDS ORDERED: dexAMETHasone**PF** 10 MG/ML VIAL IV ONE (21:01)
[2021-06-18] MEDS ORDERED: diphenhydrAMINE 50 MG/ML VIAL IV STA (21:01)
[2021-06-18] MEDS ORDERED: SODIUM CHLORIDE 0.9% 1000ML 500 ML IV ONE (21:01)
--- NOTE | 2021-06-18 21:09 | Emergency Department Note ---
Impression & Plan Dizziness, Stroke-like symptoms, Diaphoresis, Nausea ED Provider Note NAME: EDUARDO GARCIA AGE: 70 SEX: M : 1950 ARRIVES VIA: Ambulance INFORMANT: [Patient][ems] ED PROVIDER(S): [Miguel Zhao MD] CHIEF COMPLAINT: Nausea HISTORY OF PRESENT ILLNESS: The patient is a 70-year-old male who states that about 2 hours after taking a new medication, duloxetine, he began to feel dizzy, nauseated and sweaty. The patient first took the medication 4 hours ago and began feeling poorly 2 hours after, he has had 2 hours of symptoms. He feels better with his eyes closed. The room is spinning. He feels worse looking to the right. No chest pain or shortness of breath, no arm or leg weakness. He was fine until this all started fairly suddenly. He has had vertigo before many many years ago although, this feels quite a bit worse. The patient presents by EMS, in route he was given IV Zofran and IV Ativan, he feels a little bit better. REVIEW OF SYSTEMS: See HPI for pertinent positives and negatives. A total of ten systems were reviewed and were otherwise negative. PMHx/PSHx: See Below SOCIAL HISTORY: See Below. PHYSICAL EXAM: GENERAL: Patient is in mild distress, holding a vomit bag. HEENT: No acute trauma, normocephalic atraumatic, mucous membranes moist, no nasal congestion, no scleral icterus. There is some horizontal nystagmus, especially looking right. Pupils equal and reactive to light. NECK: No stridor, no adenopathy, no meningismus, trachea is midline. LUNGS: Clear to auscultation bilaterally, no wheeze, no rhonchi, breath sounds e qual. HEART: Without murmurs gallops or rubs, regular rate and rhythm. ABDOMEN: Soft, nontender, bowel sounds positive, no hernias, no peritonitis. EXTREMITIES: No cyanosis or edema, full range of motion of all the joints without pain or difficulty, no signs for acute trauma. NEUROLOGIC: Oriented x 3, no acute motor or sensory deficits, no focal weakness. No speech slur or cerebellar deficits. SKIN: No rash, no jaundice, no diaphoresis. DIFFERENTIAL DIAGNOSIS: Infection, dehydration, metabolic abnormality, hypo/hyperglycemia, electrolyte disturbance, anemia, hypoxia, vertigo, medication reaction, cardiac sources, intracerebral event, toxicologic issues, stroke, TIA, as well as other pathologies. EMERGENCY DEPARTMENT COURSE/PROCEDURES: ECG: Indication was possible stroke. The ECG shows a sinus rhythm with a first-degree AV block. A PVC is noted. The rate is 90. There is no ST elevation, the QTc is 450. There is some nonspecific ST change diffusely. Continuous Cardiac Monitoring: An order was placed for continuous cardiac monitoring. The monitor shows a rate of 89 with sinus rhythm with a first-degre e AV block. MEDICAL DECISION MAKING: There is no leukocytosis or concerning anemia. There is a normal platelet count. No significant electrolyte abnormality or kidney failure. No concerning liver enzyme elevation. The patient appears to be in a euthyroid state. ECG shows a sinus rhythm with a first-degree AV block. No acute ischemia. Cardiac enzyme testing x1 is not consistent with acute cardiac injury. Brain CT shows no acute bleed or mass-effect. CT angio of the head and neck showed no acute occlusions, no significant stenosis. On exam, the patient was dry heaving. He appeared to have some horizontal nystagmus on my exam. No focal motor deficits, no cerebellar dysfunction. He felt better with his eyes closed. The patient had taken some duloxetine today for the first time and shortly thereafter began to have the symptoms noted. He may be having a medication reaction or, this could be a case of vertigo unrelated to the med. Posterior circulation stroke is also a consideration of course. Patient was given IV saline 1 L. He was given IV Benadryl, IV Valium and IV Decadron. The patient feels better but still cannot tolerate movement. When he tries to get off the stretcher, he is very symptomatic. He is not comfortable with discharge home and I do not think he is safe for discharge. The patient requires a hospital stay and further work-up. A neurology consult may be in order. I did speak with the patient and case management. The on-call hospitalist was counseled. Past Med/Surg History Medical History Acute exacerbation of chronic low back pain Arthritis Asthma DOESNT NEED RESC. INH. CONTROLLED WITH SCHEDULED INHALER> BEEN YRS SINCE LAST ATTACK Carpal tunnel syndrome Chest pain radiating to arm Chest pain radiating to jaw Chronic pain syndrome Chronic, continuous use of opioids Depression Dysuria Encounter for pre-operative examination Hepatomegaly Intractable abdominal pain Etiology of the pain at this time is really unrelated to any acute abdomen patient is fairly comfortable and after discussing with the ER physician felt that the pain was gone and he really did not receive any analgesics this may been self-limiting process from my point of view patient can be discharged and return on a as needed basis Lumbar spinal stenosis Nocturia Osteoarthritis Periumbilical abdominal pain Post laminectomy syndrome Postlaminectomy syndrome of lumbosacral region Prostatitis Shingles rash RECOVERING FROM SHINGLES AT PRESENT> SCABS ARE HEALING OVER AT THIS TIME Sleep apnea CPAP AT HS Umbilical hernia Surgical History H/O arthroscopic knee surgery H/O rotator cuff surgery History of carpal tunnel release History of colonoscopy History of hernia repair History of lumbar surgery History of mandibular surgery Hx of cataract surgery Family History Brother Lung cancer Myocardial infarction Father Heart disease Myocardial infarction Congestive heart failure Sister Myocardial infarction Mother Cancer COPD (chronic obstructive pulmonary disease) Denies family history of Ovarian cancer Prostate cancer Breast cancer Colorectal cancer Social History Smoking Status: Never smoker Tobacco Type: Cigarettes Age Started Using Tobacco: 12; Age Quit Using Tobacco: 20; Second Hand Exposure: No; Hx Alcohol Use: Yes Alcohol type: beer Alcohol Intake Frequency: Monthly or Less Alcohol Intake Frequency Comment: rarely has a beer Hx Substance Use: No Preferred Language: Iranian Communication Ability: Effective Visual Impairment: Limited Hearing Ability: Hard of Hearing Turkish Rubber Required: No Beliefs That Will Affect Care: None marital status: Current Living Situation: Spouse current occupational status: retired How many Children do You have: 2 Feels Safe at Home: Yes Childhood Exposure to Second-Hand Smoke: Yes caffeine: Yes (coffee in the morning ) Dental Care, Regularly: Yes Physical Activity Frequency: Does not Exercise Seatbelt Use: always Sunscreen Use: No (doesn't go in the sun ) Assistive Devices: None Allergies Allergies Allergy/AdvReac Type Severity Reaction Status Date / Time Sulfa (Sulfonamide Allergy Intermediate RASH Verified 06/18/21 21:18 Antibiotics) pollen extracts Allergy Mild RASH Verified 06/18/21 21:18 ITCHING phenytoin Allergy Unknown Verified 06/18/21 21:18 cat dander AdvReac Unknown STUFFINESS, Verified 06/18/21 21:18 ITCHY dog dander AdvReac Unknown STUFFINESS, Verified 06/18/21 21:18 ITCHY mold AdvReac Unknown STUFFINESS Verified 06/18/21 21:18 ITCHY Home Meds Home Medications Medication Instructions Recorded Confirmed doxepin 25 mg capsule 75 mg PO HS 03/21/19 06/18/21 cetirizine 10 mg capsule 10 mg PO BID 11/27/19 06/18/21 Previous Rx's Medication Instructions Recorded fluticasone 250 mcg-salmeterol 50 1 inh INH BID #60 ea 11/25/20 mcg/dose blistr powdr for inhalation (Wixela Inhub) cholecalciferol (vitamin D3) 1,250 50,000 unit PO .COMPLEX #14 cap 01/15/21 mcg (50,000 unit) capsule gabapentin 300 mg capsule 300 mg PO TID #270 cap 01/16/21 (Neurontin) montelukast 10 mg tablet 10 mg PO QAM #90 tab 02/19/21 (Singulair) cholecalciferol (vitamin D3) 50 2,000 unit PO DAILY #30 cap 05/06/21 mcg (2,000 unit) capsule hydrocodone 5 mg-acetaminophen 325 1 tab PO QID PRN #120 tab 06/04/21 mg tablet diazepam 5 mg tablet 5 mg PO USEASDIRECTD #2 tab 06/10/21 alfuzosin 10 mg tablet,extended 10 mg PO DAILY #90 tab 06/11/21 release 24 hr duloxetine 30 mg capsule,delayed 30 mg PO DAILY #30 cap 06/18/21 release Results & Data (ED) Vital Signs Vital Signs - 24 hr 06/18/21 20:50 06/18/21 22:22 Temperature 37 C Temperature Source Oral Pulse Rate 89 Pulse Rate [Radial] 85 Respiratory Rate 16 16 Blood Pressure 141/92 H Blood Pressure [Left Arm] 145/94 H Blood Pressure Mean 108 Blood Pressure Mean [Left Arm] 111 Pulse Oximetry 92 93 Oxygen Delivery Method Nasal Cannula Nasal Cannula Oxygen Flow Rate 4 Sepsis Recent Fever Within 48 Hours No Sepsis New/Unexplained Change in Mental Status No Sepsis Action Taken by Nursing No Action Required Home Medications Current Medication List: was personally reviewed by me Laboratory Data Attestation: I reviewed the patient's lab results. Result diagrams: 06/18/21 20:45 06/18/21 20:45 Lab Results 06/18/21 06/18/21 Range/Units 20:45 20:45 WBC 7.22 (4.8-10.8) K/uL RBC 4.09 L (4.7-6.1) M/uL Hgb 13.8 L (14.0-18.0) g/dL Hct 39.2 L (42-52) % MCV 95.8 (80-100) fL MCH 33.7 (25-34) pg MCHC 35.2 (32-36) g/dL RDW Std Deviation 45.7 (36.4-46.3) fL RDW Coeff of Angelita 13.3 (11.5-14.5) % Plt Count 166 (130-400) K/uL MPV 9.6 (7.4-10.4) fL Immature Gran % (Auto) 0.3 % Neut % (Auto) 81.3 % Lymph % (Auto) 10.7 % Barron % (Auto) 6.1 % Eos % (Auto) 1.5 % Baso % (Auto) 0.1 % Neut # (Auto) 5.87 (1.4-6.5) K/uL Lymph # (Auto) 0.77 L (1.2-3.4) K/uL Barron # (Auto) 0.44 (0.11-0.59) K/uL Eos # (Auto) 0.11 (0-0.5) K/uL Baso # (Auto) 0.01 (0-0.2) K/uL Immature Gran # (Auto) 0.02 (0.00-0.02) K/uL Sodium 141 (136-145) mmol/L Potassium 4.2 (3.5-5.1) mmol/L Chloride 114 H (98-107) mmol/L Carbon Dioxide 21 (21-32) mmol/L Anion Gap 7.0 (3-11) BUN 14 (7-18) mg/dl Creatinine 0.89 (0.6-1.4) mg/dl Est Cr Clr Drug Dosing 87.0 ml/min Est GFR ( Amer) 99.0 ml/min Est GFR (Non-Af Amer) 85.4 ml/min BUN/Creatinine Ratio 16.0 (10-20) Glucose 137 H (70-99) mg/dl Calcium 8.2 L (8.5-10.1) mg/dl Magnesium 2.1 (1.8-2.4) mg/dl Total Bilirubin 0.4 (0.2-1) mg/dl AST 20 (15-37) U/L ALT 31 (12-78) U/L Alkaline Phosphatase 63 (45-117) U/L Troponin I < 0.015 (0-0.045) ng/ml Total Protein 6.9 (6.4-8.2) gm/dl Albumin 3.9 (3.4-5.0) gm/dl Globulin 3.0 (2.5-4.0) gm/dl Albumin/Globulin Ratio 1.3 (0.9-2) TSH 0.831 (0.300-4.500) uIu/ml Administered Medications Discontinued Medications Dexamethasone Sodium Phosphate (DexamethasonePf 10 Mg/Ml Vial) 6 mg IV NOW ONE Stop: 06/18/21 21:02 Last Admin: 06/18/21 21:27 Dose: 6 mg Documented by: [id number] Diazepam (Diazepam 5 Mg/Ml Inj 10ml Vial) 2.5 mg IV NOW STA Stop: 06/18/21 21:02 Last Admin: 06/18/21 21:27 Dose: 2.5 mg Documented by: [id number] Diphenhydramine HCl (Diphenhydramine 50 Mg/Ml Vial) 6.25 mg IV NOW STA Stop: 06/18/21 21:02 Last Admin: 06/18/21 21:27 Dose: 6.25 mg Documented by: [id number] Sodium Chloride (Nss 1000ml) 500 mls @ 999 mls/hr IV .Q31M ONE Stop: 06/18/21 21:31 Last Infusion: 06/18/21 21:57 Dose: 0 mls/hr Documented by: [id number] Admin: 06/18/21 21:27 Dose: 999 mls/hr Documented by: [id number] Ioversol (Optiray 320 125ml) 119 ml IV ONCE ONE Stop: 06/18/21 22:30 Last Admin: 06/18/21 22:31 Dose: 119 ml Documented by: [id number] Imaging Data Radiologist's Impression: Brain CT without contrast: No intracranial hemorrhage. No evidence for acute cortical stroke. Visualized sinuses and mastoid air cells are clear. CT angio of the head: No central occlusion related to the [place]. origin of the right posterior cerebral artery. CT angio of the neck: No occlusion or high-grade stenosis. Discharge Plan Visit Data Chief Complaint: Nausea Stated Complaint: NAUSEA/DIAPHORETIC - STARTED NEW MED ED Provider: Miguel Zhao Discharge Problem: Dizziness, Stroke-like symptoms, Diaphoresis, Nausea Patient Disposition: Admitted As Inpatient Condition: Fair Forms Stand Alone Forms: [facility] Prescriptions Prescriptions: No Action fluticasone propion-salmeterol [Wixela Inhub] 250-50 mcg/dose blister with device 1 inh INH BID Qty: 60 RF: 3 cholecalciferol (vitamin D3) 1,250 mcg (50,000 unit) capsule 50,000 unit PO .COMPLEX Qty: 14 RF: 0 montelukast [Singulair] 10 mg tablet 10 mg PO QAM Qty: 90 RF: 3 cholecalciferol (vitamin D3) 50 mcg (2,000 unit) capsule 2,000 unit PO DAILY Qty: 30 RF: 3 hydrocodone-acetaminophen 5-325 mg tablet 1 tab PO QID PRN (Reason: pain) Qty: 120 RF: 0 diazepam 5 mg tablet 5 mg PO USEASDIRECTD Qty: 2 RF: 0 alfuzosin 10 mg tablet extended release 24 hr 10 mg PO DAILY Qty: 90 RF: 3 duloxetine 30 mg capsule,delayed release(DR/EC) 30 mg PO DAILY Qty: 30 RF: 2 gabapentin [Neurontin] 300 mg capsule 300 mg PO TID Qty: 270 RF: 3 doxepin 25 mg capsule 75 mg PO HS RF: 0 cetirizine 10 mg capsule 10 mg PO BID RF: 0 Referrals Referrals: Hector Hernandez MD [Primary Care Provider] -
[2021-06-18 21:12] LABS: Basophils # (auto) 0.01 K/uL (0-0.2); Basophils % (auto) 0.1 %; Eosinophils # (auto) 0.11 K/uL (0-0.5); Eosinophils % (auto) 1.5 %; Hematocrit (blood only) 39.2 % (42-52); Hemoglobin 13.8 g/dL (14.0-18.0); Immature Granulocytes # (auto) 0.02 K/uL (0.00-0.02); Immature Granulocytes % (auto) 0.3 %; Lymphocytes # (auto) 0.77 K/uL (1.2-3.4); Lymphocytes % (auto) 10.7 %; Mean Corpuscular Hemoglobin 33.7 pg (25-34); Mean Corpuscular Hgb Conc 35.2 g/dL (32-36); Mean Corpuscular Volume 95.8 fL (80-100); Mean Platelet Volume 9.6 fL (7.4-10.4); Monocytes # (auto) 0.44 K/uL (0.11-0.59); Monocytes % (auto) 6.1 %; Neutrophils # (auto) 5.87 K/uL (1.4-6.5); Neutrophils % (auto) 81.3 %; Platelet Count 166 K/uL (130-400); RDW Coefficient of Variation 13.3 % (11.5-14.5); RDW Standard Deviation 45.7 fL (36.4-46.3); Red Blood Count 4.09 M/uL (4.7-6.1); White Blood Count 7.22 K/uL (4.8-10.8)
[2021-06-18 22:14] LABS: Alanine Aminotransferase 31 U/L (12-78); Albumin Level 3.9 gm/dl (3.4-5.0); Aspartate Aminotransferase 20 U/L (15-37); Blood Urea Nitrogen 14 mg/dl (7-18); Calcium 8.2 mg/dl (8.5-10.1); Carbon Dioxide 21 mmol/L (21-32); Chloride 114 mmol/L (98-107); Est GFR (Non-African American) 85.4 ml/min; Glucose 137 mg/dl (70-99); Magnesium 2.1 mg/dl (1.8-2.4); Potassium 4.2 mmol/L (3.5-5.1); Sodium 141 mmol/L (136-145)
[2021-06-18 22:23] LABS: Albumin Globulin Ratio 1.3 (0.9-2); Alkaline Phosphatase 63 U/L (45-117); Bilirubin,Total 0.4 mg/dl (0.2-1); Thyroid Stimulating Hormone 0.831 uIu/ml (0.300-4.500); Total Protein 6.9 gm/dl (6.4-8.2); Troponin I < 0.015 ng/ml (0-0.045)
[2021-06-18] MEDS ORDERED: OPTIRAY 320 125ml IV ONE (22:29)
--- NOTE | 2021-06-19 01:07 | History & Physical Report ---
Date of Service June 19, 2021 Assessment & Plan (1) Stroke-like symptoms: (2) Dizziness: (3) Diaphoresis: (4) Nausea: (5) Hypoxia: (6) Sleep apnea: (7) Chronic, continuous use of opioids: (8) Lumbar spinal stenosis: Plan: 70 yo M with hx lumbar stenosis s/p laminectomy, admitted to hospital for ongoing dizziness and nausea. Nausea/Dizziness - most likely secondary to multi-drug interaction with new duloxetine script started today - has responded well to zofran, but with persistent dizziness with rotation of head - zofran 4 mg IVQ6h prn - stroke workup in ER: CTA head/neck, CT head negative for acute stroke, intracranial lesions - daily EKG for prolonged QTc monitoring. - hold duloxetine - daily BMP Hypoxia - hx well controlled asthma, NIMA requiring CPAP HS - new o2 requirement of 4L NC - CXR showing increased cardiac diameter, right sided infiltrates compared to last CXR in 2017 - CTA while laying on R side, CT Chest wo Con pending - has not received covid vaccinations. denies recent covid contacts, recent travel. - daily cbc Chronic Medical Conditions: Back Pain - continue gabapentin, percocet PRN per home regimen Asthma - cont fluticasone inhaler, montelukast, cetirizine BPH s/p LUTS - cont doxepin, alfuzosin Home diazepam 5 mg script written only for prior to imaging/intervention for claustrophobia. DVT ppx: SCDs FEN/GI: NPO with sips, chips. Pepcid for GERD Bowel regimen: miralax PRN Code Status: Full Dispo: Med/Surg with tele History of Present Illness Primary Care Provider: Hector Hernandez MD 70 yo M with hx chronic opioid dependence for back pain, post laminectomy syndrome, sleep apnea brought to ER by EMS for acute onset dizziness and body tremors. States that he was working on his car and came inside when the room started spinning about 1 hr later. He was able to get upstairs with difficulty, and says both of his legs and his right arm were very tremulous and he was sweating by the time the EMS came. He received ativan and zofran en route to the ER. States similar episode happened in , doesn't remember what made it better. Currently laying on his right side with the lights off, states that moving from that position causes dizziness to return. Denies chest pain, SOB, blurry vision, headache associated with episode. Recently started taking duloxetine earlier today. Allergies Allergy/AdvReac Type Severity Reaction Status Date / Time Sulfa (Sulfonamide Allergy Intermediate RASH Verified 06/18/21 21:18 Antibiotics) pollen extracts Allergy Mild RASH Verified 06/18/21 21:18 ITCHING phenytoin Allergy Unknown Verified 06/18/21 21:18 cat dander AdvReac Unknown STUFFINESS, Verified 06/18/21 21:18 ITCHY dog dander AdvReac Unknown STUFFINESS, Verified 06/18/21 21:18 ITCHY mold AdvReac Unknown STUFFINESS Verified 06/18/21 21:18 ITCHY Home Medications Medication Instructions Recorded Confirmed Type doxepin 25 mg capsule 75 mg PO HS 03/21/19 06/18/21 History cetirizine 10 mg capsule 10 mg PO BID 11/27/19 06/18/21 History fluticasone 250 mcg-salmeterol 50 1 inh INH BID #60 ea 11/25/20 06/18/21 Rx mcg/dose blistr powdr for inhalation ([facility] In[facility]) cholecalciferol (vitamin D3) 1,250 50,000 unit PO .COMPLEX #14 cap 01/15/21 06/18/21 Rx mcg (50,000 unit) capsule gabapentin 300 mg capsule 300 mg PO TID #270 cap 01/16/21 06/18/21 Rx (Neurontin) montelukast 10 mg tablet 10 mg PO QAM #90 tab 02/19/21 06/18/21 Rx (Singulair) cholecalciferol (vitamin D3) 50 2,000 unit PO DAILY #30 cap 05/06/21 06/18/21 Rx mcg (2,000 unit) capsule hydrocodone 5 mg-acetaminophen 325 1 tab PO QID PRN #120 tab 06/04/21 06/18/21 Rx mg tablet diazepam 5 mg tablet 5 mg PO USEASDIRECTD #2 tab 06/10/21 06/18/21 Rx alfuzosin 10 mg tablet,extended 10 mg PO DAILY #90 tab 06/11/21 06/18/21 Rx release 24 hr duloxetine 30 mg capsule,delayed 30 mg PO DAILY #30 cap 06/18/21 06/18/21 Rx release Past Med/Surg History Medical History Acute exacerbation of chronic low back pain Arthritis Asthma DOESNT NEED RESC. INH. CONTROLLED WITH SCHEDULED INHALER> BEEN YRS SINCE LAST ATTACK Carpal tunnel syndrome Chest pain radiating to arm Chest pain radiating to jaw Chronic pain syndrome Chronic, continuous use of opioids Depression Dysuria Encounter for pre-operative examination Hepatomegaly Intractable abdominal pain Etiology of the pain at this time is really unrelated to any acute abdomen patient is fairly comfortable and after discussing with the ER physician felt that the pain was gone and he really did not receive any analgesics this may been self-limiting process from my point of view patient can be discharged and return on a as needed basis Lumbar spinal stenosis Nocturia Osteoarthritis Periumbilical abdominal pain Post laminectomy syndrome Postlaminectomy syndrome of lumbosacral region Prostatitis Shingles rash RECOVERING FROM SHINGLES AT PRESENT> SCABS ARE HEALING OVER AT THIS TIME Sleep apnea CPAP AT HS Umbilical hernia Surgical History H/O arthroscopic knee surgery H/O rotator cuff surgery History of carpal tunnel release History of colonoscopy History of hernia repair History of lumbar surgery History of mandibular surgery Hx of cataract surgery Family History Brother Lung cancer Myocardial infarction Father Heart disease Myocardial infarction Congestive heart failure Sister Myocardial infarction Mother Cancer COPD (chronic obstructive pulmonary disease) Denies family history of Ovarian cancer Prostate cancer Breast cancer Colorectal cancer Social History Smoking Status: Never smoker Tobacco Type: Cigarettes Age Started Using Tobacco: 12; Age Quit Using Tobacco: 20; Second Hand Exposure: No; Hx Alcohol Use: Yes Alcohol type: beer Alcohol Intake Frequency: Monthly or Less Alcohol Intake Frequency Comment: rarely has a beer Hx Substance Use: No Preferred Language: Maltese Communication Ability: Effective Visual Impairment: Limited Hearing Ability: Hard of Hearing Investment Professional Required: No Beliefs That Will Affect Care: None marital status: Current Living Situation: Spouse current occupational status: retired How many Children do You have: 2 Feels Safe at Home: Yes Childhood Exposure to Second-Hand Smoke: Yes caffeine: Yes (coffee in the morning ) Dental Care, Regularly: Yes Physical Activity Frequency: Does not Exercise Seatbelt Use: always Sunscreen Use: No (doesn't go in the sun ) Assistive Devices: None Review of Systems Constitutional: no fever, no chills, no sweats and no fatigue Eyes: no blind spots and no discharge Ear, Nose, Mouth, Throat: no hearing loss and no nasal congestion Respiratory: no cough and no dyspnea Cardiovascular: no chest pain, no dyspnea on exertion and no edema Gastrointestinal: + nausea and + vomiting; no abdominal pain, no constipation, no diarrhea/loose stools and no blood in stools unsure if he had coffee ground/bloody emesis Musculoskeletal: no joint pain and no myalgia Neurologic: + tremor(s) and + dizziness; no falls, no localized weakness, no paralysis, no loss of sensation, no tingling, no numbness, no lack of coordination, no syncope, no headache(s) and no abnormal speech Endocrine: no fatigue Physical Exam Constitutional: cooperative (laying on right side in bed in dark); no acute distress and not ill appearing Eyes: PERRL, conjunctivae normal, anicteric sclerae Neck: normal visual inspection Respiratory: normal respiratory effort and able to speak in complete sentences; no respiratory distress, no labored breathing, no retractions, no cough and no audible wheezes Auscultation: lungs clear to auscultation bilaterally; no crackles, no rales, no rhonchi and no wheezes Cardiovascular: Rate/Rhythm: regular rate and regular rhythm Heart Sounds: normal S1 and normal S2; no gallop, no murmur and no cardiac rub Vessels: posterior tibial pulses present Extremities: no pedal edema and no edema Gastrointestinal (Abdomen): Inspection/Auscultation: abdomen normal to inspection, + abdomen distended and normal bowel sounds Percussion/Palpation: + abdomen tender (mildly tender to epigastric area) and abdomen soft; no guarding, abdomen not rigid and no abdominal mass Skin: no rashes, warm and dry Neurologic: awake; not obtunded Speech / Cognition: normal speech and normal cognition Motor/Sensory: no tremor and normal movement Results & Data Results & Data ([facility]) Vital Signs (Past 12 Hours) Vital Signs Temp Pulse Pulse Resp BP BP Pulse Ox 06/19/21 00:39 87 91 H 16 163/101 H 93 06/18/21 22:22 85 16 145/94 H 93 06/18/21 20:50 37 C 89 16 141/92 H 92 Laboratory Results Laboratory Results WBC 7.22 K/uL (4.8-10.8) 06/18/21 20:45 RBC 4.09 M/uL (4.7-6.1) L 06/18/21 20:45 Hgb 13.8 g/dL (14.0-18.0) L 06/18/21 20:45 Hct 39.2 % (42-52) L 06/18/21 20:45 MCV 95.8 fL (80-100) 06/18/21 20:45 MCH 33.7 pg (25-34) 06/18/21 20:45 MCHC 35.2 g/dL (32-36) 06/18/21 20:45 RDW Std Deviation 45.7 fL (36.4-46.3) 06/18/21 20:45 RDW Coeff of Angelita 13.3 % (11.5-14.5) 06/18/21 20:45 Plt Count 166 K/uL (130-400) 06/18/21 20:45 MPV 9.6 fL (7.4-10.4) 06/18/21 20:45 Immature Gran % (Auto) 0.3 % 06/18/21 20:45 Neut % (Auto) 81.3 % 06/18/21 20:45 Lymph % (Auto) 10.7 % 06/18/21 20:45 Green % (Auto) 6.1 % 06/18/21 20:45 Eos % (Auto) 1.5 % 06/18/21 20:45 Baso % (Auto) 0.1 % 06/18/21 20:45 Neut # (Auto) 5.87 K/uL (1.4-6.5) 06/18/21 20:45 Lymph # (Auto) 0.77 K/uL (1.2-3.4) L 06/18/21 20:45 Green # (Auto) 0.44 K/uL (0.11-0.59) 06/18/21 20:45 Eos # (Auto) 0.11 K/uL (0-0.5) 06/18/21 20:45 Baso # (Auto) 0.01 K/uL (0-0.2) 06/18/21 20:45 Immature Gran # (Auto) 0.02 K/uL (0.00-0.02) 06/18/21 20:45 Sodium 141 mmol/L (136-145) 06/18/21 20:45 Potassium 4.2 mmol/L (3.5-5.1) 06/18/21 20:45 Chloride 114 mmol/L (98-107) H 06/18/21 20:45 Carbon Dioxide 21 mmol/L (21-32) 06/18/21 20:45 Anion Gap 7.0 (3-11) 06/18/21 20:45 BUN 14 mg/dl (7-18) 06/18/21 20:45 Creatinine 0.89 mg/dl (0.6-1.4) 06/18/21 20:45 Est Cr Clr Drug Dosing 87.0 ml/min 06/18/21 20:45 Est GFR ( Amer) 99.0 ml/min 06/18/21 20:45 Est GFR (Non-Af Amer) 85.4 ml/min 06/18/21 20:45 BUN/Creatinine Ratio 16.0 (10-20) 06/18/21 20:45 Glucose 137 mg/dl (70-99) H 06/18/21 20:45 Calcium 8.2 mg/dl (8.5-10.1) L 06/18/21 20:45 Magnesium 2.1 mg/dl (1.8-2.4) 06/18/21 20:45 Total Bilirubin 0.4 mg/dl (0.2-1) 06/18/21 20:45 AST 20 U/L (15-37) 06/18/21 20:45 ALT 31 U/L (12-78) 06/18/21 20:45 Alkaline Phosphatase 63 U/L (45-117) 06/18/21 20:45 Troponin I < 0.015 ng/ml (0-0.045) 06/18/21 20:45 Total Protein 6.9 gm/dl (6.4-8.2) 06/18/21 20:45 Albumin 3.9 gm/dl (3.4-5.0) 06/18/21 20:45 Globulin 3.0 gm/dl (2.5-4.0) 06/18/21 20:45 Albumin/Globulin Ratio 1.3 (0.9-2) 06/18/21 20:45 TSH 0.831 uIu/ml (0.300-4.500) 06/18/21 20:45 COVID-19 Eval Order Covid19 at [facility] 06/19/21 00:30 Medications Administered Discontinued Medications Dexamethasone Sodium Phosphate (DexamethasonePf 10 Mg/Ml Vial) 6 mg IV NOW ONE Stop: 06/18/21 21:02 Last Admin: 06/18/21 21:27 Dose: 6 mg Documented by: [id number] Diazepam (Diazepam 5 Mg/Ml Inj 10ml Vial) 2.5 mg IV NOW STA Stop: 06/18/21 21:02 Last Admin: 06/18/21 21:27 Dose: 2.5 mg Documented by: [id number] Diphenhydramine HCl (Diphenhydramine 50 Mg/Ml Vial) 6.25 mg IV NOW STA Stop: 06/18/21 21:02 Last Admin: 06/18/21 21:27 Dose: 6.25 mg Documented by: [id number] Sodium Chloride (Nss 1000ml) 500 mls @ 999 mls/hr IV .Q31M ONE Stop: 06/18/21 21:31 Last Infusion: 06/18/21 21:57 Dose: 0 mls/hr Documented by: [id number] Admin: 06/18/21 21:27 Dose: 999 mls/hr Documented by: [id number] Ioversol (Optiray 320 125ml) 119 ml IV ONCE ONE Stop: 06/18/21 22:30 Last Admin: 06/18/21 22:31 Dose: 119 ml Documented by: [id number] Code Status & VTE Plan VTE Prophylaxis Plan VTE Prophylaxis will be ordered: Yes Resident Activity Tracking Resident Involvement: Resident Care Provided Care Provided: Adult Hospital Medicine
[2021-06-19] MEDS ORDERED: FAMOTIDINE 20 MG in SYRINGE 3 ML IV PRN (04:34)
[2021-06-19] MEDS ORDERED: ONDANSETRON INJ 2 MG/ML 2 ML VIAL IV PRN (04:34)
--- NOTE | 2021-06-19 07:14 | XRay Report ---
XR chest 1V portable HISTORY: 70 years-old Male new O2 req acute hypoxia COMPARISON: Chest CT of same day, chest radiograph 12/16/2016 TECHNIQUE: Portable AP view of the chest FINDINGS: Cardiac silhouette is enlarged. Volume loss with interstitial reticular opacities throughout the righ t lung. No pneumothorax, pleural effusion or definite overt pulmonary edema. Bones appear grossly int act with degenerative changes of the shoulders and spine. IMPRESSION: 1. Cardiomegaly without pulmonary edema. 2. Volume loss with atelectasis/fibrosis of the right lung. ACT 112: Negative or not required by law. The above report was generated using voice recognition software. It may contain grammatical, syntax o r spelling errors. Electronically signed by: Bhupinder Wyatt M.D. 06/19/2021 7:13 AM
--- NOTE | 2021-06-19 07:14 | CT Scan Report ---
HEAD CT NONCONTRAST CT DOSE: 1357.82 mGy.cm HISTORY: dizziness TECHNIQUE: Multiaxial CT images of the head were performed without the use of intravenous contrast. A utomated exposure control was utilized for this study. A dose lowering technique was utilized adheri ng to the principles of ALARA. Comparison: None. Findings: The paranasal sinuses and mastoid air cells are clear. The calvarium and skull base are int act. The ventricles and sulci are within normal limits. There is no mass, hematoma, midline shift, or acute infarct. Impression: No acute intracranial abnormality. ACT 112: Negative or not required by law. Electronically signed by: Yury Ashley M.D. 06/19/2021 7:13 AM
--- NOTE | 2021-06-19 07:19 | CT Scan Report ---
HEAD & NECK CTA HISTORY: dizziness, vertigo TECHNIQUE: Multiaxial CT images of the head were performed following the intravenous administration o f contrast to evaluate the major cerebral vessels. Multiaxial CT images of the neck were also perform ed following the intravenous administration of contrast to evaluate the major cervical vessels. Maxim um intensity projection images were also obtained. A dose lowering technique was utilized adhering to the principles of ALARA. COMPARISON: Neck CT 06/30/2010. FINDINGS: There is no mass, hematoma, midline shift, or acute infarct. Visualized intracranial internal carotid arteries, distal vertebral arteries, and basilar artery are widely patent. There is no significant s tenosis, occlusion, or aneurysm seen within the bilateral ACAs, MCAs, or button sewing machine operator. Persistent left inspector semiconductor wafer ior circulation. This is considered to be a normal variant. The major dural venous sinuses appe ar patent. The aortic arch and proximal great vessels are widely patent. There is no significant stenosis, occ lusion, or dissection identified within the bilateral common carotid, internal carotid, or vertebral arteries. Mild calcified plaque within the bilateral carotid bifurcations. Tortuous distal right cerv ical internal carotid artery. IMPRESSION: 1. No significant stenosis, occlusion, or aneurysm within the [place]. 2. No significant stenosis, occlusion, or dissection identified within the carotid or vertebral arter ies. ACT 112: Negative or not required by law. Electronically signed by: Yury Ashley M.D. 06/19/2021 7:18 AM
--- NOTE | 2021-06-19 07:19 | CT Scan Report ---
HEAD & NECK CTA HISTORY: dizziness, vertigo TECHNIQUE: Multiaxial CT images of the head were performed following the intravenous administration o f contrast to evaluate the major cerebral vessels. Multiaxial CT images of the neck were also perform ed following the intravenous administration of contrast to evaluate the major cervical vessels. Maxim um intensity projection images were also obtained. A dose lowering technique was utilized adhering to the principles of ALARA. COMPARISON: Neck CT 06/30/2010. FINDINGS: There is no mass, hematoma, midline shift, or acute infarct. Visualized intracranial internal carotid arteries, distal vertebral arteries, and basilar artery are widely patent. There is no significant s tenosis, occlusion, or aneurysm seen within the bilateral ACAs, MCAs, or conference services coordinator. Persistent left advanced practice nurse psychotherapist ior circulation. This is considered to be a normal variant. The major dural venous sinuses appe ar patent. The aortic arch and proximal great vessels are widely patent. There is no significant stenosis, occ lusion, or dissection identified within the bilateral common carotid, internal carotid, or vertebral arteries. Mild calcified plaque within the bilateral carotid bifurcations. Tortuous distal right cerv ical internal carotid artery. IMPRESSION: 1. No significant stenosis, occlusion, or aneurysm within the [place]. 2. No significant stenosis, occlusion, or dissection identified within the carotid or vertebral arter ies. ACT 112: Negative or not required by law. Electronically signed by: Yury Ashley M.D. 06/19/2021 7:18 AM
--- NOTE | 2021-06-19 07:47 | CT Scan Report ---
CT chest diagnostic wo con CT DOSE: 642.66 mGycm CLINICAL HISTORY: 70 years-old Male with new o2 req. Acute hypoxia TECHNIQUE: Multiaxial CT images of the chest were performed without contrast. A dose lowering techni que was utilized adhering to the principles of ALARA. COMPARISON: Chest radiograph of same day, CTA chest 03/10/2015, chest radiographs 12/15/2016. FINDINGS: No thyroid nodule. Likely physiologic mildly enlarged right axillary chain lymph node. Mild cardiomeg nadir with extensive coronary artery calcifications. No thoracic aortic aneurysm. Mild dilation of the main pulmonary artery possibly reflective of pulmonary artery hypertension. No pneumothorax, pleural effusion or overt pulmonary edema. No airspace consolidation typical for pne umonia. No suspicious pulmonary nodules or masses. Mild to moderate volume loss of the right hemithor ax with linear subsegmental areas of scarring/atelectasis appear new from the comparison studies. The central airways are patent. No pneumoperitoneum. No acute process of the imaged upper abdomen. Unremarkable soft tissues. There i s no acute fracture. Degenerative changes of the shoulders and spine. IMPRESSION: 1. No acute intrathoracic abnormality. 2. Volume loss with atelectasis and fibrotic change of the right lung. 3. Cardiomegaly with extensive coronary artery calcifications. ACT 112: Negative or not required by law. Electronically signed by: Bhupinder Wyatt M.D. 06/19/2021 7:46 AM
[2021-06-19] MEDS: FLUTICASONE/VILANTEROL 200/25MCG 14 PUFFS/INHALER INH SCH (07:55)
[2021-06-19] MEDS: CETIRIZINE HCL 10 MG TABLET PO SCH ×2 (07:55→19:43)
[2021-06-19] MEDS: GABAPENTIN 300 MG CAP PO SCH ×3 (07:55→19:43)
[2021-06-19] MEDS: MONTELUKAST SODIUM 10 MG TABLET PO SCH (07:55)
[2021-06-19] MEDS: ALFUZOSIN HCL 10 MG TAB PO SCH (07:55)
--- NOTE | 2021-06-19 08:25 | Electrocardiogram Report ---
Test Reason : Blood Pressure : / mmHG Vent. Rate : 090 BPM Atrial Rate : 090 BPM P-R Int : 234 ms QRS Dur : 100 ms QT Int : 368 ms P-R-T Axes : 056 006 062 degrees QTc Int : 450 ms Sinus rhythm with 1st degree A-V block with occasional Premature ventricular complexes Nonspecific T wave abnormality Abnormal ECG When compared with ECG of 15-DEC-2016 09:11, Premature ventricular complexes are now Present Nonspecific T wave abnormality, worse in Lateral leads Confirmed by Joseph Ochoa ([id number]) on 06/19/2021 8:24:37 AM Referred By: REFERRED SELF Confirmed By:Joseph Ochoa
[2021-06-19 08:43] LABS: Hematocrit (blood only) 40.7 % (42-52); Hemoglobin 14.3 g/dL (14.0-18.0); Immature Granulocytes # (auto) 0.01 K/uL (0.00-0.02); Immature Granulocytes % (auto) 0.1 %; Lymphocytes # (auto) 0.58 K/uL (1.2-3.4); Lymphocytes % (auto) 8.4 %; Mean Corpuscular Hemoglobin 32.9 pg (25-34); Mean Corpuscular Hgb Conc 35.1 g/dL (32-36); Mean Corpuscular Volume 93.8 fL (80-100); Mean Platelet Volume 9.7 fL (7.4-10.4); Monocytes # (auto) 0.21 K/uL (0.11-0.59); Monocytes % (auto) 3.1 %; Neutrophils # (auto) 6.08 K/uL (1.4-6.5); Neutrophils % (auto) 88.4 %; Platelet Count 170 K/uL (130-400); RDW Coefficient of Variation 13.1 % (11.5-14.5); Red Blood Count 4.34 M/uL (4.7-6.1); White Blood Count 6.88 K/uL (4.8-10.8)
[2021-06-19 09:20] LABS: BUN Creatinine Ratio 15.5 (10-20); Calcium 8.3 mg/dl (8.5-10.1); Creatinine Clr Calc Pharmacy 119.2 ml/min; Est GFR (African American) 112.7 ml/min; Est GFR (Non-African American) 97.2 ml/min
--- NOTE | 2021-06-19 09:30 | Medical Student Progress Note ---
Date of Service June 19, 2021 Assessment & Plan (1) Stroke-like symptoms: (2) Dizziness: (3) Diaphoresis: (4) Nausea: (5) Hypoxia: (6) Sleep apnea: (7) Chronic, continuous use of opioids: (8) Lumbar spinal stenosis: Plan: Mr. Smallwood is a 70 y/o M with Hx lumbar stenosis s/p laminectomy, chronic opioid dependence for back pain, and sleep apnea admitted to hospital for ongoing dizziness and nausea. Nausea/Dizziness - symptoms started 1 day ago, 2 hours after initiating Duloxetine - PE initially remarkable for unilateral diminished sensation on the right side of the body, possible horizontal nystagmus, and right sided tremor; sensation improved on repeat exam but vertigo persistent - Stroke workup negative: CTA head/neck negative, CT head negative for acute stroke/intracranial lesions, MRI brain negative - Suspect exacerbation of vertigo, may be due to Duloxetine side effect (which is a listed ASE) but other etiologies (i.e. viral illness) possible as well - Meclizine 25mg PO Q6H PRN for vertigo - Zofran 4 mg IV Q6H PRN for nausea - Hold duloxetine - trend clinically for changes Hypoxia New O2 requirement of 4L NC. COVID-[address] chest showed fibrosis and atelectasis of right lung --> suspect hypoxia due to post-inflammatory process vs atelectasis - No wheezing or crackles on physical exam - Continue monitoring, daily CBC and work on weaning as tolerated Coronary Artery Disease Extensive coronary artery calcifications per CT chest this hospitalization. - A1c 5.5, Lipid profile WNL - started Rosuvastatin 10mg PO QAM - continue after discharge Chronic Medical Conditions Back Pain - continue gabapentin, Percocet PRN per home regimen Asthma - continue fluticasone inhaler, montelukast, cetirizine BPH s/p LUTS - continue doxepin, alfuzosin Home diazepam 5 mg script written only for prior to imaging/intervention for claustrophobia. FEN/GI: regular DVT ppx: SCDs Code Status: Full code Dispo: Med/Surg with tele Admission and Anticipated Discharge Date Admission Date: June 19, 2021 Subjective Overall, patient says he's feeling very tired. He said he didn't sleep well last night. He currently isn't having any pain, dizziness, or tremors, but says he has kept himself positioned on his right side to avoid the possibility of "room spinning". Right now, he is not endorsing any nausea, vomiting, fever, chills, headache, cough, abdominal pain, pain with urination, recent illnesses. Of note, patient says he is not on oxygen therapy at home, but is always told to "take deep breaths" when he comes into the hospital to keep his saturation up. Review of Systems Review of Systems: All systems reviewed & are unremarkable except as noted in Subjective Physical Exam Constitutional: cooperative (laying on right side in bed in dark, NC in place); no acute distress and not ill appearing Eyes: PERRL, conjunctivae normal, anicteric sclerae + anicteric sclerae, reactive pupils and + nystagmus (possible horizontal nystagmus when looking left) Neck: normal visual inspection Respiratory: able to speak in complete sentences; no respiratory distress (mild; trouble catching his breath), no retractions, no cough and no audible wheezes Auscultation: lungs clear to auscultation bilaterally; no crackles, no rales, no rhonchi and no wheezes Cardiovascular: Rate/Rhythm: regular rate and regular rhythm Heart Sounds: normal S1 and normal S2; no gallop, no murmur and no cardiac rub Vessels: posterior tibial pulses present Extremities: no pedal edema Gastrointestinal (Abdomen): Inspection/Auscultation: abdomen normal to inspection Percussion/Palpation: + abdomen tender (mildly tender to epigastric area) and abdomen soft; no guarding, abdomen not rigid and no abdominal mass Skin: no rashes, warm and dry Neurologic: awake; not obtunded Speech / Cognition: normal speech and normal cognition Motor/Sensory: + tremor (R arm; more apparent with activity) and + sensory deficit (diminished sensory loss on R side of body); no asterixis Psychiatric: Orientation: alert and cooperative Results & Data ([facility]) Vital Signs (Past 12 Hours) Vital Signs Temp Pulse Pulse Pulse Resp BP BP 06/19/21 08:07 36.6 C 57 L 21 143/87 H 06/19/21 05:04 91 H 06/19/21 04:35 36.5 C 88 20 159/95 H 06/19/21 00:39 87 91 H 16 163/101 H 06/18/21 22:22 85 16 145/94 H Pulse Ox 06/19/21 08:07 100 06/19/21 05:04 06/19/21 04:35 93 06/19/21 00:39 93 06/18/21 22:22 93 Laboratory Results Laboratory Results WBC 6.88 K/uL (4.8-10.8) 06/19/21 08:25 RBC 4.34 M/uL (4.7-6.1) L 06/19/21 08:25 Hgb 14.3 g/dL (14.0-18.0) 06/19/21 08:25 Hct 40.7 % (42-52) L 06/19/21 08:25 MCV 93.8 fL (80-100) 06/19/21 08:25 MCH 32.9 pg (25-34) 06/19/21 08:25 MCHC 35.1 g/dL (32-36) 06/19/21 08:25 RDW Std Deviation 45.0 fL (36.4-46.3) 06/19/21 08:25 RDW Coeff of Angelita 13.1 % (11.5-14.5) 06/19/21 08:25 Plt Count 170 K/uL (130-400) 06/19/21 08:25 MPV 9.7 fL (7.4-10.4) 06/19/21 08:25 Immature Gran % (Auto) 0.1 % 06/19/21 08:25 Neut % (Auto) 88.4 % 06/19/21 08:25 Lymph % (Auto) 8.4 % 06/19/21 08:25 Miller % (Auto) 3.1 % 06/19/21 08:25 Eos % (Auto) 0.0 % 06/19/21 08:25 Baso % (Auto) 0.0 % 06/19/21 08:25 Neut # (Auto) 6.08 K/uL (1.4-6.5) 06/19/21 08:25 Lymph # (Auto) 0.58 K/uL (1.2-3.4) L 06/19/21 08:25 Miller # (Auto) 0.21 K/uL (0.11-0.59) 06/19/21 08:25 Eos # (Auto) 0.00 K/uL (0-0.5) 06/19/21 08:25 Baso # (Auto) 0.00 K/uL (0-0.2) 06/19/21 08:25 Immature Gran # (Auto) 0.01 K/uL (0.00-0.02) 06/19/21 08:25 Sodium 142 mmol/L (136-145) 06/19/21 08:25 Potassium 4.0 mmol/L (3.5-5.1) 06/19/21 08:25 Chloride 112 mmol/L (98-107) H 06/19/21 08:25 Carbon Dioxide 24 mmol/L (21-32) 06/19/21 08:25 Anion Gap 6.0 (3-11) 06/19/21 08:25 BUN 10 mg/dl (7-18) 06/19/21 08:25 Creatinine 0.65 mg/dl (0.6-1.4) 06/19/21 08:25 Est Cr Clr Drug Dosing 119.2 ml/min 06/19/21 08:25 Est GFR ( Amer) 112.7 ml/min 06/19/21 08:25 Est GFR (Non-Af Amer) 97.2 ml/min 06/19/21 08:25 BUN/Creatinine Ratio 15.5 (10-20) 06/19/21 08:25 Glucose 128 mg/dl (70-99) H 06/19/21 08:25 Calcium 8.3 mg/dl (8.5-10.1) L 06/19/21 08:25 Magnesium 2.1 mg/dl (1.8-2.4) 06/18/21 20:45 Total Bilirubin 0.4 mg/dl (0.2-1) 06/18/21 20:45 AST 20 U/L (15-37) 06/18/21 20:45 ALT 31 U/L (12-78) 06/18/21 20:45 Alkaline Phosphatase 63 U/L (45-117) 06/18/21 20:45 Troponin I < 0.015 ng/ml (0-0.045) 06/18/21 20:45 Total Protein 6.9 gm/dl (6.4-8.2) 06/18/21 20:45 Albumin 3.9 gm/dl (3.4-5.0) 06/18/21 20:45 Globulin 3.0 gm/dl (2.5-4.0) 06/18/21 20:45 Albumin/Globulin Ratio 1.3 (0.9-2) 06/18/21 20:45 TSH 0.831 uIu/ml (0.300-4.500) 06/18/21 20:45 COVID-19 Eval Order Covid19 at [facility] 06/19/21 00:30 SARS-CoV-2 (PCR) NEGATIVE (Negative) 06/19/21 00:[address] 06/18/21 21:[address] DOSE: 1357.82 mGy.cm HISTORY: dizziness TECHNIQUE: Multiaxial CT images of the head were performed without the use of intravenous contrast. Automated exposure control was utilized for this study. A dose lowering technique was utilized adhering to the principles of ALARA. Comparison: None. Findings: The paranasal sinuses and mastoid air cells are clear. The calvarium and skull base are intact. The ventricles and sulci are within normal limits. There is no mass, hematoma, midline shift, or acute infarct. Impression: No acute intracranial abnormality. ACT 112: Negative or not required by law. Electronically signed by: Yury Ashley M.D. 06/19/2021 7:13 AM Head CTA 06/18/21 21:01 HEAD & NECK CTA HISTORY: dizziness, vertigo TECHNIQUE: Multiaxial CT images of the head were performed following the intravenous administration of contrast to evaluate the major cerebral vessels. Multiaxial CT images of the neck were also performed following the intravenous administration of contrast to evaluate the major cervical vessels. Maximum intensity projection images were also obtained. A dose lowering technique was utilized adhering to the principles of ALARA. COMPARISON: Neck CT 06/30/2010. FINDINGS: There is no mass, hematoma, midline shift, or acute infarct. Visualized intracranial internal carotid arteries, distal vertebral arteries, and basilar artery are widely patent. There is no significant stenosis, occlusion, or aneurysm seen within the bilateral ACAs, MCAs, or director global. Persistent left posterior circulation. This is considered to be a normal variant. The major dural venous sinuses appear patent. The aortic arch and proximal great vessels are widely patent. There is no significant stenosis, occlusion, or dissection identified within the bilateral common carotid, internal carotid, or vertebral arteries. Mild calcified plaque within the bilateral carotid bifurcations. Tortuous distal right cervical internal carotid artery. IMPRESSION: 1. No significant stenosis, occlusion, or aneurysm within the sun[place] of [place]. 2. No significant stenosis, occlusion, or dissection identified within the carotid or vertebral arteries. ACT 112: Negative or not required by law. Electronically signed by: Yury Ashley M.D. 06/19/2021 7:18 AM Neck CTA 06/18/21 21:01 HEAD & NECK CTA HISTORY: dizziness, vertigo TECHNIQUE: Multiaxial CT images of the head were performed following the intravenous administration of contrast to evaluate the major cerebral vessels. Multiaxial CT images of the neck were also performed following the intravenous administration of contrast to evaluate the major cervical vessels. Maximum intensity projection images were also obtained. A dose lowering technique was utilized adhering to the principles of ALARA. COMPARISON: Neck CT 06/30/2010. FINDINGS: There is no mass, hematoma, midline shift, or acute infarct. Visualized intracra nial internal carotid arteries, distal vertebral arteries, and basilar artery are widely patent. There is no significant stenosis, occlusion, or aneurysm seen within the bilateral ACAs, MCAs, or director global. Persistent left posterior circulation. This is considered to be a normal variant. The major dural venous sinuses appear patent. The aortic arch and proximal great vessels are widely patent. There is no significant stenosis, occlusion, or dissection identified within the bilateral common carotid, internal carotid, or vertebral arteries. Mild calcified plaque within the bilateral carotid bifurcations. Tortuous distal right cervical internal carotid artery. IMPRESSION: 1. No significant stenosis, occlusion, or aneurysm within the sun[place] of [place]. 2. No significant stenosis, occlusion, or dissection identified within the carotid or vertebral arteries. ACT 112: Negative or not required by law. Electronically signed by: Yury Ashley M.D. 06/19/2021 7:18 AM Chest X-Ray 06/19/21 01:01 XR chest 1V portable HISTORY: 70 years-old Male new O2 req acute hypoxia COMPARISON: Chest CT of same day, chest radiograph 12/16/2016 TECHNIQUE: Portable AP view of the chest FINDINGS: Cardiac silhouette is enlarged. Volume loss with interstitial reticular opacities throughout the right lung. No pneumothorax, pleural effusion or definite overt pulmonary edema. Bones appear grossly intact with degenerative changes of the shoulders and spine. IMPRESSION: 1. Cardiomegaly without pulmonary edema. 2. Volume loss with atelectasis/fibrosis of the right lung. ACT 112: Negative or not required by law. The above report was generated using voice recognition software. It may contain grammatical, syntax or spelling errors. Electronically signed by: Bhupinder Wyatt M.D. 06/19/2021 7:[address] 06/19/21 01:33 CT chest diagnostic wo con CT DOSE: 642.66 mGycm CLINICAL HISTORY: 70 years-old Male with new o2 req. Acute hypoxia TECHNIQUE: Multiaxial CT images of the chest were performed without contrast. A dose lowering technique was utilized adhering to the principles of ALARA. COMPARISON: Chest radiograph of same day, CTA chest 03/10/2015, chest radiographs 12/15/2016. FINDINGS: No thyroid nodule. Likely physiologic mildly enlarged right axillary chain lymph node. Mild cardiomegaly with extensive coronary artery calcifications. No thoracic aortic aneurysm. Mild dilation of the main pulmonary artery possibly reflective of pulmonary artery hypertension. No pneumothorax, pleural effusion or overt pulmonary edema. No airspace consolidation typical for pneumonia. No suspicious pulmonary nodules or masses. Mild to moderate volume loss of the right hemithorax with linear subsegmental areas of scarring/atelectasis appear new from the comparison studies. The central airways are patent. No pneumoperitoneum. No acute process of the imaged upper abdomen. Unremarkable soft tissues. There is no acute fracture. Degenerative changes of the shoulders and spine. IMPRESSION: 1. No acute intrathoracic abnormality. 2. Volume loss with atelectasis and fibrotic change of the right lung. 3. Cardiomegaly with extensive coronary artery calcifications. ACT 112: Negative or not required by law. Electronically signed by: Bhupinder Wyatt M.D. 06/19/2021 7:46 AM Medications Administered Current Inpatient Medications Hydrocodone Bitart/Acetaminophen (Hydrocodone/Acetamophen 5/325mg Tab) 1 tab PO QID PRN PRN Reason: back pain Stop: 07/03/21 04:33 Alfuzosin HCl (Alfuzosin Hcl 10 Mg Tab) 10 mg PO DAILY FIDELIA Stop: 07/19/21 08:59 Last Admin: 06/19/21 07:55 Dose: 10 mg Documented by: Cetirizine HCl (Cetirizine Hcl 10 Mg Tablet) 10 mg PO BID FIDELIA Stop: 07/19/21 08:59 Last Admin: 06/19/21 07:55 Dose: 10 mg Documented by: Doxepin HCl (Doxepin Hcl 75 Mg Capsule) 75 mg PO HS [facility] Stop: 07/19/21 20:59 Fluticasone/Vilanterol (Fluticasone/Vilanterol 200/25mcg 14 Puffs/Inhaler) 1 puffs INH DAILY FIDELIA Stop: 07/19/21 08:59 Last Admin: 06/19/21 07:55 Dose: 1 puffs Documented by: Gabapentin (Gabapentin 300 Mg Cap) 300 mg PO TID FIDELIA Stop: 07/19/21 08:59 Last Admin: 06/19/21 07:55 Dose: 300 mg Documented by: Famotidine 20 mg/ Syringe 5 mls @ 2.5 mls/min IV BID PRN PRN Reason: heartburn Stop: 07/19/21 04:33 Montelukast Sodium (Montelukast Sodium 10 Mg Tablet) 10 mg PO QAM [facility] Stop: 07/19/21 08:59 Last Admin: 06/19/21 07:55 Dose: 10 mg Documented by: Ondansetron HCl (Ondansetron Inj 2 Mg/Ml 2 Ml Vial) 4 mg IV Q6H PRN PRN Reason: nausea Stop: 07/19/21 04:33 Resident Activity Tracking Resident Involvement: Resident Care Provided Care Provided: [facility] Medicine Addendum ([facility]) Addendum June 19, 2021 15:24 I was present with the medical student during the service, interview and the physical exam. I independently interviewed the patient and performed the physical exam, reviewed the chart and verified the documentation and I agree with the assessment and plan of Ancelmo Thao. Attending Physician Medical Student Supervision Note: I independently interviewed and examined the patient and verified the see history and physical, reviewed labs and image studies, discussed the case with the medical student Ancelmo Thao and the Resident physician Dr. Mas and agree with the findings and care plan. Vertigo/Nausea/Tremors - Stroke work up neg. sec to BPV/med side effect. Meclizine trial d/c home in am if symptoms improve.
[2021-06-19 13:23] LABS: Chol HDL Ratio 3; Cholesterol 171 mg/dl (0-200); HDL Cholesterol 67 mg/dl; LDL Cholesterol Calculated 93 mg/dl; Triglycerides 57 mg/dl (0-150); VLDL Cholesterol 11 mg/dl
[2021-06-19] MEDS ORDERED: GADOBUTROL 65ML VIAL IV ONE (13:42)
--- NOTE | 2021-06-19 13:51 | XCELERA ---
[id number] \\[id number]
[2021-06-19 13:58] LABS: Estimated Average Glucose 111 mg/dl; Hemoglobin A1C 5.5 % (4.5-5.6)
--- NOTE | 2021-06-19 14:06 | Magnetic Resonance Report ---
MRI OF THE BRAIN WITHOUT AND WITH IV CONTRAST CLINICAL HISTORY: right sensation deficit, w/u CVA COMPARISON STUDY: MRI of the brain January 14, 2011. Head CT and CTA of the head June 10, 2021. TECHNIQUE: Utilizing a 1.5 Rosa magnet and dedicated coil, multiplanar, multiecho imaging of the br ain was performed pre and postcontrast administration. IV administration of 10.5 mL of Gadavist cont rast was uneventful. FINDINGS: There are no foci of restricted diffusion to suggest acute infarct. No acute intracranial h emorrhage, midline shift or mass effect is present. Brain volume is normal. Ventricular system is sta ble. Basal cisterns are patent. There are no extra-axial collections. Flow-voids for the major intrac ranial vessels are present. No intracranial mass or pathologic enhancement. A few punctate white chastity er T2 hyperintense foci suggest minimal small vessel disease. Calvarial signal is normal. There is mi ld polypoid mucosal thickening within the right maxillary sinus with suspected mucous retention cyst. IMPRESSION: 1. No acute intracranial findings. 2. No intracranial mass or pathologic enhancement. 3. Unremarkable MRI of the brain. ACT 112: Negative or not required by law. Electronically signed by: Jacob Moore M.D. 06/19/2021 2:04 PM
[2021-06-19] MEDS: ROSUVASTATIN CALCIUM 10 MG TAB PO SCH (16:41)
[2021-06-19] MEDS: MECLIZINE HCL 25 MG TAB PO PRN (16:41)
[2021-06-19] MEDS: HYDROCODONE/ACETAMOPHEN 5/325MG TAB PO PRN (16:46)
--- NOTE | 2021-06-19 19:20 | Billing Data ---
Date of Service June 19, 2021 Coding Level of Care Code INT OBSERVATION CARE 68M LVL 3
[2021-06-19] MEDS ORDERED: DOXEPIN HCL 75 MG CAPSULE PO SCH (21:00)
[2021-06-20] MEDS: HYDROCODONE/ACETAMOPHEN 5/325MG TAB PO PRN ×2 (00:19→08:20)
[2021-06-20] MEDS: GABAPENTIN 300 MG CAP PO SCH (08:17)
[2021-06-20] MEDS: CETIRIZINE HCL 10 MG TABLET PO SCH (08:17)
[2021-06-20] MEDS: FLUTICASONE/VILANTEROL 200/25MCG 14 PUFFS/INHALER INH SCH (08:18)
[2021-06-20] MEDS: ALFUZOSIN HCL 10 MG TAB PO SCH (08:18)
[2021-06-20] MEDS: ROSUVASTATIN CALCIUM 10 MG TAB PO SCH (08:18)
[2021-06-20] MEDS: MONTELUKAST SODIUM 10 MG TABLET PO SCH (08:18)
[2021-06-20] MEDS: MECLIZINE HCL 25 MG TAB PO PRN (08:19)
[2021-06-20 08:23] LABS: Basophils # (auto) 0.01 K/uL (0-0.2); Basophils % (auto) 0.2 %; Eosinophils # (auto) 0.16 K/uL (0-0.5); Eosinophils % (auto) 2.6 %; Hematocrit (blood only) 40.6 % (42-52); Immature Granulocytes # (auto) 0.01 K/uL (0.00-0.02); Immature Granulocytes % (auto) 0.2 %; Lymphocytes # (auto) 1.67 K/uL (1.2-3.4); Lymphocytes % (auto) 27.1 %; Mean Corpuscular Hemoglobin 32.8 pg (25-34); Mean Corpuscular Hgb Conc 34.5 g/dL (32-36); Mean Corpuscular Volume 95.1 fL (80-100); Mean Platelet Volume 9.5 fL (7.4-10.4); Monocytes # (auto) 0.46 K/uL (0.11-0.59); Monocytes % (auto) 7.5 %; Neutrophils # (auto) 3.85 K/uL (1.4-6.5); Neutrophils % (auto) 62.4 %; Platelet Count 162 K/uL (130-400); RDW Coefficient of Variation 13.3 % (11.5-14.5); RDW Standard Deviation 45.9 fL (36.4-46.3); Red Blood Count 4.27 M/uL (4.7-6.1); White Blood Count 6.16 K/uL (4.8-10.8)
[2021-06-20 09:01] LABS: BUN Creatinine Ratio 16.5 (10-20); Calcium 8.4 mg/dl (8.5-10.1); Creatinine Clr Calc Pharmacy 103.3 ml/min; Est GFR (African American) 106.2 ml/min; Est GFR (Non-African American) 91.6 ml/min; Potassium 3.6 mmol/L (3.5-5.1)
--- NOTE | 2021-06-20 10:14 | Discharge Summary ---
Date of Service June 20, 2021 Admission HPI Per Admitting Provider 70 yo M with hx chronic opioid dependence for back pain, post laminectomy syndrome, sleep apnea brought to ER by EMS for acute onset dizziness and body tremors. States that he was working on his car and came inside when the room started spinning about 1 hr later. He was able to get upstairs with difficulty, and says both of his legs and his right arm were very tremulous and he was sweating by the time the EMS came. He received ativan and zofran en route to the ER. States similar episode happened in , doesn't remember what made it better. Currently laying on his right side with the lights off, states that moving from that position causes dizziness to return. Denies chest pain, SOB, blurry vision, headache associated with episode. Recently started taking duloxetine earlier today. Admission Exam Per Admitting Provider Constitutional: cooperative (laying on right side in bed in dark); no acute distress and not ill appearing Eyes: PERRL, conjunctivae normal, anicteric sclerae Neck: normal visual inspection Respiratory: normal respiratory effort and able to speak in complete sentences; no respiratory distress, no labored breathing, no retractions, no cough and no audible wheezes Auscultation: lungs clear to auscultation bilaterally; no crackles, no rales, no rhonchi and no wheezes Cardiovascular: Rate/Rhythm: regular rate and regular rhythm Heart Sounds: normal S1 and normal S2; no gallop, no murmur and no cardiac rub Vessels: posterior tibial pulses present Extremities: no pedal edema and no edema Gastrointestinal (Abdomen): Inspection/Auscultation: abdomen normal to inspection, + abdomen distended and normal bowel sounds Percussion/Palpation: + abdomen tender (mildly tender to epigastric area) and abdomen soft; no guarding, abdomen not rigid and no abdominal mass Skin: no rashes, warm and dry Neurologic: awake; not obtunded Speech / Cognition: normal speech and normal cognition Motor/Sensory: no tremor and normal movement Principal Diagnosis Vertigo Discharge Exam General: A&Ox3. NAD. Cooperative. HEENT: Atraumatic, normocephalic. Pulm: CTAB A&P. -wheezes, -rales, -rhonchi. Symmetrical chest rise. No increase work of breathing. No respiratory distress. Cardiac: RRR, -mrg. Radial pulses intact and symmetrical. No LE edema. Abdominal: soft, non-tender, non-distended, BS x 4 Neurologic patellar DTR's 2+ bilat, sensation intact and PERRL, EOMI, accommodation nl, no face palsy, no dysarthria normal touch/pain/proprioception, CN's II-XI intact bilaterally and deep tendon reflexes 2+ bilaterally Speech / Cognition: normal speech Motor/Sensory: no tremor and normal movement Gait: no ataxic gait Coordination: normal [id number] test Discharge Data Allergies Allergy/AdvReac Type Severity Reaction Status Date / Time Sulfa (Sulfonamide Allergy Intermediate RASH Verified 06/18/21 21:18 Antibiotics) pollen extracts Allergy Mild RASH Verified 06/18/21 21:18 ITCHING phenytoin Allergy Unknown Verified 06/18/21 21:18 cat dander AdvReac Unknown STUFFINESS, Verified 06/18/21 21:18 ITCHY dog dander AdvReac Unknown STUFFINESS, Verified 06/18/21 21:18 ITCHY mold AdvReac Unknown STUFFINESS Verified 06/18/21 21:18 ITCHY Consultations 06/19/21 00:20 ED Decision to Admit Stat Ordered Studies 06/18/21 21:01 CT angio head w con Urgent CT angio neck with con Urgent CT head/brain wo con Urgent 06/19/21 01:33 CT chest diagnostic wo con Urgent 06/19/21 09:22 MR brain wo/w con Urgent Hospital Course (1) Stroke-like symptoms: (2) Dizziness: (3) Diaphoresis: (4) Nausea: (5) Hypoxia: (6) Sleep apnea: (7) Chronic, continuous use of opioids: (8) Lumbar spinal stenosis: Mr. Smallwood is a 70 y/o M with Hx lumbar stenosis s/p laminectomy, chronic opioid dependence for back pain, and sleep apnea admitted to hospital from 06/19 - 06/20 for dizziness and nausea that started shortly after starting Duloxetine. Nausea/Dizziness - vertigo - symptoms started 1 day ago, 2 hours after initiating Duloxetine - PE initially remarkable for unilateral diminished sensation on the right side of the body, possible horizontal nystagmus, and right sided tremor; sensation was completely intact on repeat exam later in the day, and vertigo improved - Stroke workup negative: CTA head/neck negative, CT head negative for acute stroke/intracranial lesions, MRI brain negative - A1c 5.5 and lipid panel WNL - Suspected exacerbation of vertigo - ? viral/BPV. TIA a possibility but unlikely based on lack of cerebrovascular atherosclerosis or significant risk factors - Started Meclizine 25mg PO Q6H PRN for vertigo, which significantly improved symptoms - continue as needed after discharge - Hold Duloxetine on discharge - - Less likely to be the cause of presentation but if contributing - avoid and external factor since new med. - f/u with PCP in 2-3 days Hypoxia, resolved New O2 requirement of 4L NC. COVID-[address] chest showed fibrosis and atelectasis of right lung --> suspect hypoxia due to post-inflammatory process vs atelectasis. - No wheezing or crackles on physical exam - succesfully weaned to room air within 24 hours of admission - continue CPAP HS on discharge Coronary Artery Disease Extensive coronary artery calcifications per CT chest this hospitalization. - A1c 5.5, Lipid profile WNL - started Rosuvastatin 10mg PO QAM - continue after discharge Chronic Medical Conditions Back Pain - continue gabapentin, Percocet PRN per home regimen Asthma - continue fluticasone inhaler, montelukast, cetirizine BPH s/p LUTS - continue doxepin, alfuzosin Total Time Total Time Spent Total Time Spent (In Minutes): 30 minutes Discharge Plan Discharge Items Patient Disposition: Home - Self-Care Reason For Visit: NAUSEA,TREMORS Discharge Diagnosis: Vertigo Condition on Discharge: Fair Activity: Per Instructions section Non-emergency contact: Primary Care Provider Call non-emergency contact if: you have any medication questions and your symptoms worsen Follow-up/Referrals: Hector Hernandez MD [Primary Care Provider] - 06/24/21 2:00 pm () Diet: Regular Addtl Attending Provider Instructions: You were admitted to [facility] from 06/19 - 06/20 for nausea, dizziness/vertigo, and decreased sensation on the right side of your body that started shortly after starting Duloxetine. Your symptoms were initially concerning for a stroke, and you were extensively evaluated for stroke. Th ankfully, imaging of your head and neck did not show a stroke. Your decreased sensation was resolved within 24 hours, and your nausea and dizziness/vertigo improved but did not resolve completely. You were started on a vertigo medicine called Meclizine, which helped with these symptoms. As of 06/20, you were able to eat, sit, stand, and walk without issues, and your vertigo/dizziness was significantly improved. Imaging of your heart revealed signs of heart vessel disease, and you were started on a medicine called Rosuvastatin (Crestor), which is a preventative medication to avoid stroke and heart attack. You also temporarily required oxygen while you were hospitalized, but you were able to be weaned off of oxygen within ~24 hours without issues. Imaging of your chest did not reveal signs of infection. You will be discharged on 06/20 in improved, stable condition. You will continue to take the following medications: 1. Rosuvastatin 10mg daily 2. Meclizine 25mg as needed for nausea/dizziness/vertigo Please stop taking Duloxetine. You can speak to your PCP about the possibility of re-starting this medication at your next visit. Given the proximity of your symptoms to the first dose of this medicine, there is a slight possibility that your symptoms were due to medication side effect. Please continue to use CPAP nightly for your sleep apnea. Please continue to take your other medications as scheduled. You should follow up with your PCP within 2-3 days to discuss this hospitalization and to monitor for improvement in your vertigo symptoms. Pending Studies at Discharge: No Stand-Alone Forms: My [facility], Smoking Cessation Medications and DC Order Prescriptions: New meclizine 25 mg tablet 25 mg PO QID PRN (Reason: dizziness) Qty: 20 RF: 0 rosuvastatin 10 mg tablet 10 mg PO DAILY Qty: 30 RF: 1 Continued fluticasone propion-salmeterol [Wixela Inhub] 250-50 mcg/dose blister with device 1 inh INH BID Qty: 60 RF: 3 cholecalciferol (vitamin D3) 1,250 mcg (50,000 unit) capsule 50,000 unit PO .COMPLEX Qty: 14 RF: 0 montelukast [Singulair] 10 mg tablet 10 mg PO QAM Qty: 90 RF: 3 cholecalciferol (vitamin D3) 50 mcg (2,000 unit) capsule 2,000 unit PO DAILY Qty: 30 RF: 3 hydrocodone-acetaminophen 5-325 mg tablet 1 tab PO QID PRN (Reason: pain) Qty: 120 RF: 0 diazepam 5 mg tablet 5 mg PO USEASDIRECTD Qty: 2 RF: 0 alfuzosin 10 mg tablet extended release 24 hr 10 mg PO DAILY Qty: 90 RF: 3 gabapentin [Neurontin] 300 mg capsule 300 mg PO TID Qty: 270 RF: 3 doxepin 25 mg capsule 75 mg PO HS RF: 0 cetirizine 10 mg capsule 10 mg PO BID RF: 0 Discontinued duloxetine 30 mg capsule,delayed release(DR/EC) 30 mg PO DAILY Qty: 30 RF: 2 Discharge Orders: Discharge Order (Routine); Ordered 06/20/21 Ordered By: Yimi Mas Admission Data Admit Date/Time: 06/19/21 00:52 Attending Provider: Aleida Simpson Admit Provider: Yola Wild Primary Care Provider: Hector Hernandez Other Providers: Francesco Belcher Other Interventions: Discharge Summary Assessment (RN) Last Done: 06/20/21 10:37 Supervising Physician Co-Signing Physician Notes Resident Physician Supervision Note: I independently interviewed and examined the patient and verified the see history and physical, reviewed labs and image studies and agree with resident Dr. Mas findings and care plan. Resident Activity Tracking Resident Involvement: Resident Care Provided Care Provided: Adult Hospital Medicine
== END 2021-06-20 13:30 | disposition home or self-care (01) ==
LOC: ED 20:37 → 2N 20:37 → SUATTDRO 06-19 00:52 → 2N 06-19 02:59

== ENCOUNTER 2024-03-02 21:24 | Inpatient (IN) ==
[2024-03-02] MEDS: ALBUT/IPRATROP 3MG/0.5MG NEB 3 ML VIAL NEB STA ×3 (21:45→22:26)
[2024-03-02] MEDS: methylPREDNISolone 125 MG/2 ML VIAL IV STA (21:45)
--- NOTE | 2024-03-02 22:00 | Emergency Department Note ---
History of Present Illness General Chief Complaint: Shortness of Breath/Dyspnea Stated Complaint: SOB, COUGH/FLEM Time Seen by Provider: 03/02/24 21:41 History of Present Illness Provider Complaint: shortness of breath, cough and "asthma attack" Onset (ago): week(s) (1) Severity: severe Consistency/Duration: + progressively worsening Relieved By: + nothing Exacerbated By: + exertion and + coughing Known history of: asthma Associated symptoms: + cough, + wheezing, + sputum production and + chest congestion; no chest pain, no hemoptysis, no nausea/vomiting or no abdominal pain Treatment prior to arrival: bronchodilator Home Medications Medication Instructions Recorded Confirmed Type doxepin 25 mg capsule 75 mg PO HS 03/21/19 01/31/24 History cetirizine 10 mg capsule 10 mg PO BID 11/27/19 01/31/24 History cholecalciferol (vitamin D3) 50 2,000 unit PO DAILY #30 caps 09/08/22 01/31/24 Rx mcg (2,000 unit) capsule ondansetron 4 mg disintegrating 4 mg PO Q8H PRN nausea and 12/03/22 01/31/24 Rx tablet vomiting #30 tabs acetaminophen 500 mg tablet 500 mg PO Q6H PRN 10/19/23 01/31/24 History (Tylenol Extra Strength) alfuzosin 10 mg tablet,extended 10 mg PO DAILY 10/19/23 01/31/24 History release 24 hr meloxicam 15 mg tablet 15 mg PO DAILY #30 tabs 11/30/23 01/31/24 Rx montelukast 10 mg tablet 10 mg PO QAM #90 tabs 01/24/24 01/31/24 Rx (Singulair) rosuvastatin 10 mg tablet 10 mg PO DAILY #90 tabs 01/24/24 01/31/24 Rx fluticasone 250 mcg-salmeterol 50 1 inh inhalation BID #180 ea 01/31/24 01/31/24 Rx mcg/dose blistr powdr for inhalation (Wixela Inhub) gabapentin 600 mg tablet 600 mg PO BID 7 days #14 tabs 01/31/24 01/31/24 Rx levalbuterol tartrate 45 2 inh inhalation Q6H PRN shortness 01/31/24 01/31/24 Rx mcg/actuation aerosol inhaler of breath or wheezing #15 grams pregabalin 75 mg capsule (Lyrica) 75 mg PO BID #60 caps 01/31/24 01/31/24 Rx hydrocodone 5 mg-acetaminophen 325 1 tab PO QID PRN pain #120 tabs 02/21/24 Rx mg tablet albuterol sulfate 90 mcg/actuation 2 puff inhalation Q6H PRN 02/25/24 Rx aerosol inhaler shortness of breath or wheezing #6.7 grams Allergies Allergy/AdvReac Type Severity Reaction Status Date / Time pollen extracts Allergy Intermediate RASH Verified 01/31/24 13:46 ITCHING Sulfa (Sulfonamide Allergy Intermediate RASH Verified 01/31/24 13:46 Antibiotics) phenytoin Allergy Unknown Unknown Verified 01/31/24 13:46 cat dander AdvReac Intermediate STUFFINESS, Verified 01/31/24 13:46 ITCHY dog dander AdvReac Intermediate STUFFINESS, Verified 01/31/24 13:46 ITCHY duloxetine AdvReac Intermediate dizziness, Verified 01/31/24 13:46 nausea mold AdvReac Intermediate STUFFINESS Verified 01/31/24 13:46 ITCHY Past Med/Surg History Medical History Ascending aorta dilatation Mild mitral regurgitation BPH with obstruction/lower urinary tract symptoms Coronary artery calcification Hypoxia Diaphoresis Stroke-like symptoms Prostatitis Dysuria Acute exacerbation of chronic low back pain Postlaminectomy syndrome of lumbosacral region Arthritis Depression Nocturia Umbilical hernia Post laminectomy syndrome Chronic, continuous use of opioids Chronic pain syndrome Encounter for pre-operative examination Carpal tunnel syndrome Shingles rash RECOVERING FROM SHINGLES AT PRESENT> SCABS ARE HEALING OVER AT THIS TIME Osteoarthritis Sleep apnea CPAP AT HS Asthma DOESNT NEED RESC. INH. CONTROLLED WITH SCHEDULED INHALER> BEEN YRS SINCE LAST ATTACK Periumbilical abdominal pain Lumbar spinal stenosis Intractable abdominal pain Etiology of the pain at this time is really unrelated to any acute abdomen patient is fairly comfortable and after discussing with the ER physician felt that the pain was gone and he really did not receive any analgesics this may been self-limiting process from my point of view patient can be discharged and return on a as needed basis Hepatomegaly Chest pain radiating to arm Chest pain radiating to jaw Surgical History History of mandibular surgery open right jaw repair History of carpal tunnel release History of colonoscopy Hx of cataract surgery LEFT H/O arthroscopic knee surgery RIGHT H/O rotator cuff surgery R/L History of lumbar surgery RODS History of hernia repair Family History Brother Lung cancer Myocardial infarction Father Heart disease Myocardial infarction Congestive heart failure Sister Myocardial infarction Mother Cancer COPD (chronic obstructive pulmonary disease) Denies family history of Ovarian cancer Prostate cancer Breast cancer Colorectal cancer Social History Smoking Status: Never smoker Tobacco Type: Cigarettes Age Started Using Tobacco: 12; Age Quit Using Tobacco: 20; Second Hand Exposure: Yes; Do You Dip or Chew Tobacco: No; Hx Alcohol Use: Yes Alcohol type: beer Alcohol Intake Frequency: Monthly or Less Alcohol Intake Frequency Comment: rarely has a beer Hx Substance Use: No Preferred Language: Icelandic Communication Ability: Effective Visual Impairment: Limited Hearing Ability: Hard of Hearing Developer Architect Required: No Beliefs That Will Affect Care: None marital status: Current Living Situation: Spouse current occupational status: retired How many Children do You have: 2 Feels Safe at Home: Yes Childhood Exposure to Second-Hand Smoke: Yes caffeine: Yes (coffee in the morning ) Dental Care, Regularly: Yes Physical Activity Frequency: 1-2 Times per Week Seatbelt Use: always Sunscreen Use: No (doesn't go in the sun ) Assistive Devices: None Physical Exam 2 Vital Signs: Vital Signs - 24 hr 03/02/24 21:27 03/02/24 21:42 Temperature 37.3 C Temperature Source Oral Pulse Rate 103 H Respiratory Rate 22 Blood Pressure 151/90 H Blood Pressure [place] n 110 Blood Pressure Pos ition Sitting Pulse Oximetry 92 88 L Oxygen Delivery Me thod Room Air Room Air Sepsis Recent Feve r Within 48 Hours No Sepsis New/Unexpla ined Change in Men tito Status N/A Sepsis Action Take n by Nursing No Action Required Oxygen Flow Rate - Titration 2 Pulse Oximetry Pos t Tiitration 92 Physical Exam: Physical Exam GENERAL: oriented to person, place, and time. appears well-developed and well- nourished. HENT: Exam performed. - Head: Normocephalic and atraumatic. EYES: Conjunctivae and EOM are normal. Right eye exhibits no discharge. Left eye exhibits no discharge. No scleral icterus. NECK: Normal range of motion. Neck supple. No JVD present. CV: Normal rate, regular rhythm, normal heart sounds and intact distal pulses. There is no peripheral edema. Palpable radial pulses bue. PULM/CHEST: Diffuse expiratory wheezes bilaterally. ABD: The abdomen is soft. There is no tenderness. NEURO: Motor and sensation grossly intact. SKIN: Skin is warm and dry. He is not diaphoretic. PSYCH: normal mood and affect. Behavior is normal. Judgment and thought content normal. Course Course 2140: The patient was evaluated in room B10. A complete history and physical exam was performed Cardiac monitoring: An order was placed for continuous cardiac monitoring. The monitor shows a rate of 80 with sinus rhythm interpreted by pa 2219: After 2 DuoNeb treatments patient states he feels better but he is still wheezing and tachypneic. Patient's oxygen saturation dropped to 87% on room air. 2 L nasal cannula was applied which improved the patient's oxygen saturation. Repeat DuoNeb will be ordered for the patient. 2238: Vital signs stable on supplemental oxygen via nasal cannula. Labs within normal limits and imaging. Patient will be admitted to the [facility] team. Administered Medications Discontinued Medications Albuterol (Albut/Ipratrop 3mg/0.5mg Neb 3 Ml Vial) 3 ml NEB NOW STA; Protocol Stop: 03/02/24 21:42 Last Admin: 03/02/24 21:45 Dose: 3 ml Documented By: Albuterol (Albut/Ipratrop 3mg/0.5mg Neb 3 Ml Vial) 3 ml NEB NOW STA; Protocol Stop: 03/02/24 21:43 Last Admin: 03/02/24 21:46 Dose: 3 ml Documented By: Albuterol (Albut/Ipratrop 3mg/0.5mg Neb 3 Ml Vial) 3 ml NEB NOW STA; Protocol Stop: 03/02/24 22:18 Last Admin: 03/02/24 22:26 Dose: 3 ml Documented By: FRANCE Methylprednisolone (Methylprednisolone 125 Mg/2 Ml Vial) 125 mg IV NOW STA Stop: 03/02/24 21:42 Last Admin: 03/02/24 21:45 Dose: 125 mg Documented By: Medical Decision Making Laboratory Data Attestation: I reviewed the patient's lab results. 03/02/24 21:44 03/02/24 21:44 Lab Results 03/02/24 03/02/24 03/02/24 Range/Units 21:44 21:48 22:23 WBC 6.23 (4.8-10.8) K/ul RBC 4.49 L (4.70-6.10) M/uL Hgb 14.5 (14.0-18.0) g/dl Hct 42.4 (42.0-52.0) % MCV 94.4 (80.0-100.0) fL MCH 32.3 (25.0-34.0) pg MCHC 34.2 (32.0-36.0) g/dL RDW Std Deviation 43.2 (36.4-46.3) fL RDW Coeff of Angelita 12.7 (11.5-14.5) % Plt Count 157 (130-400) K/uL MPV 9.9 (9.4-12.4) fL Immature Gran % (Auto) 0.2 % Neut % (Auto) 55.4 % Lymph % (Auto) 30.8 % Gooding % (Auto) 9.1 % Eos % (Auto) 4.0 % Baso % (Auto) 0.5 % Neut # (Auto) 3.45 (1.40-6.50) K/uL Lymph # (Auto) 1.92 (1.20-3.40) K/uL Gooding # (Auto) 0.57 (0.11-0.59) K/uL Eos # (Auto) 0.25 (0.00-0.50) K/uL Baso # (Auto) 0.03 (0.00-0.20) K/uL Immature Gran # (Auto) 0.01 (0.01-0.20) K/uL VBG pH 7.42 H (7.36-7.41) VBG pCO2 37 L (38-50) mmHg VBG pO2 58 mmHg VBG HCO3 24 mmol/L VBG O2 Saturation 90.1 % VBG Base Excess -0.2 mEq/L Sodium 139 (136-145) mmol/L Potassium 4.0 (3.5-5.1) mmol/L Chloride 105 (98-107) mmol/L Carbon Dioxide 23 (21-32) mmol/L Anion Gap 11 (3-11) BUN 14 (6-23) mg/dl Creatinine 0.96 (0.6-1.4) mg/dl Est Cr Clr Drug Dosing 75.7 ml/min Est GFR ( Amer) 89.3 ml/min Est GFR (Non-Af Amer) 77.0 ml/min BUN/Creatinine Ratio 14.6 (10-20) Glucose 94 (70-99(Fasting)) mg/dl Calcium 9.5 (8.6-10.3) mg/dl Troponin I High Sens 7.1 (0-20) pg/ml B-Natriuretic Peptide 95 (0-100) pg/ml Lipase 23 (11-82) U/L SARS-CoV-2, RNA, NAAT NEGATIVE (NEGATIVE) Imaging Data Attestation: I personally reviewed and interpreted this imaging study as follows: My Impression: Chest x-ray negative. Airway clear. No pneumothorax. No consolidation. No cardiomegaly or cephalization.. No free air under the diaphragm. No fractures of the skeletal structures. ECG Data Attestation: I personally reviewed and interpreted this ECG as follows: Interpretation: EKG at 2215: Sinus rhythm with a rate of 79. MT 232 QRS [address] elevation or ST depression. Right bundle branch block present. [facility] Narrative 2141: The patient was evaluated in room B10. A complete history and physical exam was performed Cardiac monitoring: An order was placed for continuous cardiac monitoring. The monitor shows a rate of 80 with sinus rhythm interpreted by me 2219: After 2 DuoNeb treatments patient states he feels better but he is still wheezing and tachypneic. Patient's oxygen saturation dropped to 87% on room air. 2 L nasal cannula was applied which improved the patient's oxygen saturation. Repeat DuoNeb will be ordered for the patient. 2238: Vital signs stable on supplemental oxygen via nasal cannula. Labs within normal limits and imaging. Patient will be admitted to the [facility] team. Impression & Plan Hypoxia, Asthmaticus, status Critical Care Time Critical Care Time: Yes Total Critical Care Time: 40 I have personally spent greater than 40 minutes of critical care time in the direct management of this patient. This includes bedside care, interpretation of diagnostic studies, and testing, discussion with consultants, patient, and family members, and other required patient management activities. This 40 minutes is in excess of all separately billable procedures. Discharge Plan Visit Data Chief Complaint: Shortness of Breath/Dyspnea Stated Complaint: SOB, COUGH/FLEM ED Provider: Jamie Gomez Discharge Problem: Hypoxia, Asthmaticus, status Patient Disposition: Admitted As Inpatient Forms Stand Alone Forms: My [facility] Prescriptions Prescriptions: No Action cholecalciferol (vitamin D3) 50 mcg (2,000 unit) capsule 2,000 unit PO DAILY Qty: 30 5RF rosuvastatin 10 mg tablet 10 mg PO DAILY Qty: 90 3RF montelukast [Singulair] 10 mg tablet 10 mg PO QAM Qty: 90 3RF hydrocodone-acetaminophen 5-325 mg tablet 1 tab PO QID PRN (Reason: pain) Qty: 120 0RF Rx Instructions: Take 1 tablet by mouth 4 times daily as needed albuterol sulfate 90 mcg/actuation HFA aerosol inhaler 2 puff inhalation Q6H PRN (Reason: shortness of breath or wheezing) Qty: 6.7 2RF ondansetron 4 mg tablet,disintegrating 4 mg PO Q8H PRN (Reason: nausea and vomiting) Qty: 30 0RF acetaminophen [Tylenol Extra Strength] 500 mg tablet 500 mg PO Q6H PRN alfuzosin 10 mg tablet extended release 24 hr 10 mg PO DAILY Rx Instructions: After the same meal each day meloxicam 15 mg tablet 15 mg PO DAILY Qty: 30 2RF fluticasone propion-salmeterol [Wixela Inhub] 250-50 mcg/dose blister with device 1 inh INH BID Qty: 180 3RF levalbuterol tartrate 45 mcg/actuation HFA aerosol inhaler 2 inh inhalation Q6H PRN (Reason: shortness of breath or wheezing) Qty: 15 2RF gabapentin 600 mg tablet 600 mg PO BID 7 Days Qty: 14 0RF pregabalin [Lyrica] 75 mg capsule 75 mg PO BID Qty: 60 0RF doxepin 25 mg capsule 75 mg PO HS Rx Instructions: USED FOR RASH/ITCHING NOT DEPRESSION cetirizine 10 mg capsule 10 mg PO BID Referrals Referrals: Carleen Richards DO [Primary Care Provider] - Discharge Problem: Asthmaticus, status Qualifiers: Asthma severity: severe Asthma persistence: unspecified Qualified Code(s): J 45.902 - Unspecified asthma with status asthmaticus
[2024-03-02 22:13] LABS: Basophils # (auto) 0.03 K/uL (0.00-0.20); Basophils % (auto) 0.5 %; Eosinophils # (auto) 0.25 K/uL (0.00-0.50); Hematocrit (blood only) 42.4 % (42.0-52.0); Hemoglobin 14.5 g/dl (14.0-18.0); Immature Granulocytes # (auto) 0.01 K/uL (0.01-0.20); Immature Granulocytes % (auto) 0.2 %; Lymphocytes # (auto) 1.92 K/uL (1.20-3.40); Lymphocytes % (auto) 30.8 %; Mean Corpuscular Hemoglobin 32.3 pg (25.0-34.0); Mean Corpuscular Hgb Conc 34.2 g/dL (32.0-36.0); Mean Corpuscular Volume 94.4 fL (80.0-100.0); Mean Platelet Volume 9.9 fL (9.4-12.4); Monocytes # (auto) 0.57 K/uL (0.11-0.59); Monocytes % (auto) 9.1 %; Neutrophils # (auto) 3.45 K/uL (1.40-6.50); Neutrophils % (auto) 55.4 %; Platelet Count 157 K/uL (130-400); RDW Coefficient of Variation 12.7 % (11.5-14.5); RDW Standard Deviation 43.2 fL (36.4-46.3); Red Blood Count 4.49 M/uL (4.70-6.10); White Blood Count 6.23 K/ul (4.8-10.8)
[2024-03-02 22:30] LABS: BUN Creatinine Ratio 14.6 (10-20); Calcium 9.5 mg/dl (8.6-10.3); Creatinine Clr Calc Pharmacy 75.7 ml/min; Est GFR (African American) 89.3 ml/min
[2024-03-02 22:34] LABS: Base Excess VBG -0.2 mEq/L; HCO3 VBG 24 mmol/L; Oxygen Saturation VBG 90.1 %; PCO2 VBG 37 mmHg (38-50); PO2 VBG 58 mmHg; pH VBG 7.42 (7.36-7.41)
[2024-03-02 22:36] LABS: Troponin I High Sensitivity 7.1 pg/ml (0-20)
--- NOTE | 2024-03-02 22:55 | History & Physical Report ---
Date of Service March 02, 2024 Assessment & Plan (1) Asthma exacerbation: Plan: Pt is a 73 yo male with PMH of aortic dilation, BPH, chronic low back pain s/p laminectomy, depression, sleep apnea on CPAP, and asthma presenting d/t SOB and cough x1 week. Asthma exacerbation - lab work significant for no leukocytosis, BMP WNL, trop neg, BNP neg, COVID neg - VBG showed pH 7.42, pCO2 37, pO2 58 - CXR w/o consolidation or infiltrates to suggest PNA - outpatient CTA performed today showing mucous plugging and atelectasis, demonstration of thoracic aortic dilation to 4 cm and aortic root dilation to 4.6cm w/o acute dissection- neg for PE - suspect exacerbation d/t viral illness and allergies; pt's asthma has been stable since 2006 - s/p duonebs x3 in ER; continue with scheduled duonebs and PRN for wheezing/SOB - s/p methylpred 125mg x1; continue with daily 40 mg IV methylpred - continue home allergy regimen; cetirizine and Singulair - incentive spirometer and flutter valve - wean oxygen as able; pt not on oxygen at baseline - would recommend outpatient PFTs upon discharge Aortic dilation - CTA results as above; last chest CT in 2020 w/o evidence of dilation/aneurysm - do not suspect his current symptoms are cardiac in nature - encouraged continued outpatient f/u with cardiology for further management BPH - continue home alfuzosin 10 mg daily HLD - continue with home rosuvastatin 10 mg daily Chronic low back pain - continue home pain regimen Sleep apnea - continue CPAP HS Chronic rash/itching - continue home doxepin 75mg PO HS Diet: heart healthy VTE ppx: lovenox Code: Full. 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 His is his surrogate decision maker if he is unable to make decisions for himself. Dispo: admit to med/tele (2) Ascending aorta dilatation: (3) BPH with obstruction/lower urinary tract symptoms: (4) Lumbar back pain: (5) Sleep apnea: History of Present Illness Chief Complaint: SOB, cough Primary Care Provider: Carleen Richards DO Pt is a 73 yo male with PMH of aortic dilation, BPH, chronic low back pain s/p laminectomy, depression, sleep apnea on CPAP, and asthma presenting d/t SOB and cough x1 week. Pt explains that he has been sick for the past week including productive cough of yellow-green sputum and feeling SOB. He has been using his daily inhalers in addition to his PRN albuterol at home but these did not seem to improve his breathing which prompted his presentation to the ER. He does note that he was sick 02/16 for a week and then felt better for a bit and then became sick again. He does note that these illnesses felt different. He belies that his allergies may have contributed to his current breathing difficulties. He does not wear oxygen at home. He also notes that he was recently diagnosed with an aortic aneurysm. He is following with cardiology for this. He had an outpatient CTA performed today for evaluation of the aneurysm. In the ER, pt was given duonebs x3 and methylpred 125mg x1. Allergies Allergy/AdvReac Type Severity Reaction Status Date / Time pollen extracts Allergy Intermediate RASH Verified 03/03/24 00:05 ITCHING Sulfa (Sulfonamide Allergy Intermediate RASH Verified 03/03/24 00:05 Antibiotics) phenytoin Allergy Unknown Unknown Verified 03/03/24 00:05 cat dander AdvReac Intermediate STUFFINESS, Verified 03/03/24 00:05 ITCHY dog dander AdvReac Intermediate STUFFINESS, Verified 03/03/24 00:05 ITCHY duloxetine AdvReac Intermediate dizziness, Verified 03/03/24 00:05 nausea mold AdvReac Intermediate STUFFINESS Verified 03/03/24 00:05 ITCHY Home Medications Medication Instructions Recorded Confirmed Type doxepin 25 mg capsule 75 mg PO HS 03/21/19 03/03/24 History cetirizine 10 mg capsule 10 mg PO BID 11/27/19 03/03/24 History cholecalciferol (vitamin D3) 50 2,000 unit PO DAILY #30 caps 09/08/22 03/03/24 Rx mcg (2,000 unit) capsule ondansetron 4 mg disintegrating 4 mg PO Q8H PRN nausea and 12/03/22 03/03/24 Rx tablet vomiting #30 tabs acetaminophen 500 mg tablet 500 mg PO Q6H PRN PAIN/FEVER 10/19/23 03/03/24 History (Tylenol Extra Strength) alfuzosin 10 mg tablet,extended 10 mg PO DAILY 10/19/23 03/03/24 History release 24 hr meloxicam 15 mg tablet 15 mg PO DAILY #30 tabs 11/30/23 03/03/24 Rx montelukast 10 mg tablet 10 mg PO QAM #90 tabs 01/24/24 03/03/24 Rx (Singulair) rosuvastatin 10 mg tablet 10 mg PO DAILY #90 tabs 01/24/24 03/03/24 Rx fluticasone 250 mcg-salmeterol 50 1 inh inhalation BID #180 ea 01/31/24 03/03/24 Rx mcg/dose blistr powdr for inhalation (Wixela Inhub) levalbuterol tartrate 45 2 inh inhalation Q6H PRN shortness 01/31/24 03/03/24 Rx mcg/actuation aerosol inhaler of breath or wheezing #15 grams pregabalin 75 mg capsule (Lyrica) 75 mg PO BID #60 caps 01/31/24 03/03/24 Rx hydrocodone 5 mg-acetaminophen 325 1 tab PO QID PRN pain #120 tabs 02/21/24 03/03/24 Rx mg tablet albuterol sulfate 90 mcg/actuation 2 puff inhalation Q6H PRN 02/25/24 03/03/24 Rx aerosol inhaler shortness of breath or wheezing #6.7 grams Past Med/Surg History Medical History Ascending aorta dilatation Mild mitral regurgitation BPH with obstruction/lower urinary tract symptoms Coronary artery calcification Hypoxia Diaphoresis Stroke-like symptoms Prostatitis Dysuria Acute exacerbation of chronic low back pain Postlaminectomy syndrome of lumbosacral region Arthritis Depression Nocturia Umbilical hernia Post laminectomy syndrome Chronic, continuous use of opioids Chronic pain syndrome Encounter for pre-operative examination Carpal tunnel syndrome Shingles rash RECOVERING FROM SHINGLES AT PRESENT> SCABS ARE HEALING OVER AT THIS TIME Osteoarthritis Sleep apnea CPAP AT HS Asthma DOESNT NEED RESC. INH. CONTROLLED WITH SCHEDULED INHALER> BEEN YRS SINCE LAST ATTACK Periumbilical abdominal pain Lumbar spinal stenosis Intractable abdominal pain Etiology of the pain at this time is really unrelated to any acute abdomen patient is fairly comfortable and after discussing with the ER physician felt that the pain was gone and he really did not receive any analgesics this may been self-limiting process from my point of view patient can be discharged and return on a as needed basis Hepatomegaly Chest pain radiating to arm Chest pain radiating to jaw Surgical History History of mandibular surgery open right jaw repair History of carpal tunnel release History of colonoscopy Hx of cataract surgery LEFT H/O arthroscopic knee surgery RIGHT H/O rotator cuff surgery R/L History of lumbar surgery RODS History of hernia repair Family History Brother Lung cancer Myocardial infarction Father Heart disease Myocardial infarction Congestive heart failure Sister Myocardial infarction Mother Cancer COPD (chronic obstructive pulmonary disease) Denies family history of Ovarian cancer Prostate cancer Breast cancer Colorectal cancer Social History Smoking Status: Former smoker Tobacco Type: Cigarettes Age Started Using Tobacco: 12; Age Quit Using Tobacco: 20; Second Hand Exposure: No; Do You Dip or Chew Tobacco: No; Hx Alcohol Use: Yes Alcohol type: beer Alcohol Intake Frequency: Monthly or Less Alcohol Intake Frequency Comment: rarely has a beer Hx Substance Use: No Preferred Language: Lithuanian Communication Ability: Effective Visual Impairment: Limited Hearing Ability: Hard of Hearing Venereal Disease Control Head Required: No Beliefs That Will Affect Care: None marital status: Current Living Situation: Spouse current occupational status: retired How many Children do You have: 2 Other Information That Helps Us Care for You: No Feels Safe at Home: Yes Safety Concerns: Feels Safe At This Time Childhood Exposure to Second-Hand Smoke: Yes caffeine: Yes (coffee in the morning ) Dental Care, Regularly: Yes Physical Activity Frequency: 1-2 Times per Week Seatbelt Use: always Sunscreen Use: No (doesn't go in the sun ) Assistive Devices: Cane, Denture - Lower, Glasses and Walker Review of Systems Review of Systems: As per HPI Physical Exam Constitutional: NAD, vitals WNL. Respiratory: CTA bilaterally but with diminished breath sounds throughout. Non labored breathing. No rhonchi, wheezing, or crackles. Cardiovascular: RRR. No murmurs noted. No LE edema. Skin: No rashes or skin lesions noted. Neurologic: Sensation grossly intact. No FND appreciated. Psychiatric: Speech of normal pace and content. Mood and affect congruent. Results & Data Results & Data Vital Signs (Past 12 Hours) Vital Signs Temp Pulse Resp BP Pulse Ox O2 Del Method 03/02/24 21:42 88 L Room Air 03/02/24 21:27 37.3 C 103 H 22 151/90 H 92 Room Air Laboratory Results Laboratory Results WBC 6.23 K/ul (4.8-10.8) 03/02/24 21:44 RBC 4.49 M/uL (4.70-6.10) L 03/02/24 21:44 Hgb 14.5 g/dl (14.0-18.0) 03/02/24 21:44 Hct 42.4 % (42.0-52.0) 03/02/24 21:44 MCV 94.4 fL (80.0-100.0) 03/02/24 21:44 MCH 32.3 pg (25.0-34.0) 03/02/24 21:44 MCHC 34.2 g/dL (32.0-36.0) 03/02/24 21:44 RDW Std Deviation 43.2 fL (36.4-46.3) 03/02/24 21:44 RDW Coeff of Angelita 12.7 % (11.5-14.5) 03/02/24 21:44 Plt Count 157 K/uL (130-400) 03/02/24 21:44 MPV 9.9 fL (9.4-12.4) 03/02/24 21:44 Immature Gran % (Auto) 0.2 % 03/02/24 21:44 Neut % (Auto) 55.4 % 03/02/24 21:44 Lymph % (Auto) 30.8 % 03/02/24 21:44 [place] % (Auto) 9.1 % 03/02/24 21:44 Eos % (Auto) 4.0 % 03/02/24 21:44 Baso % (Auto) 0.5 % 03/02/24 21:44 Neut # (Auto) 3.45 K/uL (1.40-6.50) 03/02/24 21:44 Lymph # (Auto) 1.92 K/uL (1.20-3.40) 03/02/24 21:44 [place] # (Auto) 0.57 K/uL (0.11-0.59) 03/02/24 21:44 Eos # (Auto) 0.25 K/uL (0.00-0.50) 03/02/24 21:44 Baso # (Auto) 0.03 K/uL (0.00-0.20) 03/02/24 21:44 Immature Gran # (Auto) 0.01 K/uL (0.01-0.20) 03/02/24 21:44 VBG pH 7.42 (7.36-7.41) H 03/02/24 22:23 VBG pCO2 37 mmHg (38-50) L 03/02/24 22:23 VBG pO2 58 mmHg 03/02/24 22:23 VBG HCO3 24 mmol/L 03/02/24 22:23 VBG O2 Saturation 90.1 % 03/02/24 22:23 VBG Base Excess -0.2 mEq/L 03/02/24 22:23 Sodium 139 mmol/L (136-145) 03/02/24 21:44 Potassium 4.0 mmol/L (3.5-5.1) 03/02/24 21:44 Chloride 105 mmol/L (98-107) 03/02/24 21:44 Carbon Dioxide 23 mmol/L (21-32) 03/02/24 21:44 Anion Gap 11 (3-11) 03/02/24 21:44 BUN 14 mg/dl (6-23) 03/02/24 21:44 Creatinine 0.96 mg/dl (0.6-1.4) 03/02/24 21:44 Est Cr Clr Drug Dosing 75.7 ml/min 03/02/24 21:44 Est GFR ( Amer) 89.3 ml/min 03/02/24 21:44 Est GFR (Non-Af Amer) 77.0 ml/min 03/02/24 21:44 BUN/Creatinine Ratio 14.6 (10-20) 03/02/24 21:44 Glucose 94 mg/dl (70-99(Fasting)) 03/02/24 21:44 Calcium 9.5 mg/dl (8.6-10.3) 03/02/24 21:44 Troponin I High Sens 7.1 pg/ml (0-20) 03/02/24 21:44 B-Natriuretic Peptide 95 pg/ml (0-100) 03/02/24 21:44 Lipase 23 U/L (11-82) 03/02/24 21:44 SARS-CoV-2, RNA, NAAT NEGATIVE (NEGATIVE) 03/02/24 21:48 Supervising Physician Co-Signing Physician Notes Patient seen and examined, chart reviewed, case discussed with Dr. Che and I agree with the assessment and plan as above. In brief, patient is a 73yo male with asthma presenting with cough and SOB. Symptoms improved with nebs administered in the ER. Mild acute hypoxic respiratory failure with saturation of 88% on room air. Pat ient does not use supplemental O2 at home. Currently doing well on 2L - 91% On exam he is resting comfortably, speaking in full sentences Skin - intact HEENT - No JVT, MMM, NC/AT Heart - +S1/S2, regular, no m/r/g Lungs - mildly diminished, no wheezing, no crackles Abd - soft, NT/ND Ext - no edema Labs and images reviewed Assessment/Plan Acute hypoxic respiratory failure in patient with asthma, possible allergy induced excerbation. Improved with nebs and steroids but still requiring O2 -Admit to medical -Continue steroids and nebs -Hold antibiotics for now -Remainder as above Resident Activity Tracking Resident Involvement: Resident Care Provided Care Provided: Adult Hospital Medicine
[2024-03-02] MEDS ORDERED: ACETAMINOPHEN 325 MG TAB PO PRN (23:47)
[2024-03-02] MEDS ORDERED: ONDANSETRON INJ 2 MG/ML 2 ML VIAL IV PRN (23:47)
[2024-03-03] MEDS: ALBUT/IPRATROP 3MG/0.5MG NEB 3 ML VIAL NEB SCH (01:45)
[2024-03-03] MEDS: HYDROCODONE/ACETAMOPHEN 5/325MG TAB PO PRN (02:21)
--- NOTE | 2024-03-03 02:32 | Billing Data ---
Date of Service March 02, 2024 Coding Level of Care Code 80312 INT INP/OBS CARE
--- NOTE | 2024-03-03 07:19 | XRay Report ---
XR chest 1V portable HISTORY: Shortness of breath. Chest pain, nonspecific COMPARISON: Chest 02/10/2022. Chest CTA 03/02/2024. FINDINGS: No pneumothorax. Trace bilateral pleural effusions again noted. No focal lung consolidation s to suggest a pneumonia. No evidence for pulmonary edema. The cardiac silhouette remains mildly enla rged. There is a tortuous thoracic aorta. No acute fractures. IMPRESSION: No change in the mild cardiomegaly and trace bilateral pleural effusions. ACT 112: Negative or not required by law. Electronically signed by: Yury Ashley M.D. 03/03/2024 7:18 AM
--- NOTE | 2024-03-03 07:20 | Hospitalist Progress Note ---
Date of Service March 03, 2024 Assessment & Plan (1) Asthma exacerbation: Plan: Pt is a 73 yo male with PMH of aortic dilation, BPH, chronic low back pain s/p laminectomy, depression, sleep apnea on CPAP, and asthma presenting d/t SOB and cough x1 week. Asthma exacerbation - lab work significant for no leukocytosis, BMP WNL, trop neg, BNP neg, COVID neg - VBG showed pH 7.42, pCO2 37, pO2 58 - CXR w/o consolidation or infiltrates to suggest PNA - outpatient CTA performed today showing mucous plugging and atelectasis, demonstration of thoracic aortic dilation to 4 cm and aortic root dilation to 4.6cm w/o acute dissection- neg for PE - suspect exacerbation d/t viral illness and allergies; pt's asthma has been stable since 2006 - s/p duonebs x3 in ER; continue with scheduled duonebs and PRN for wheezing/SOB - s/p methylpred 125mg x1; continue with daily 40 mg IV methylpred, plan transition 50mg oral prednisone for total 5 days - 03/03 while walking became SOB, required duoneb - continue home allergy regimen; cetirizine and Singulair - incentive spirometer and flutter valve - wean oxygen as able; pt not on oxygen at baseline - would recommend outpatient PFTs upon discharge Aortic dilation - CTA results as above; last chest CT in 2020 w/o evidence of dilation/aneurysm - do not suspect his current symptoms are cardiac in nature - encouraged continued outpatient f/u with cardiology for further management BPH - continue home alfuzosin 10 mg daily HLD - continue with home rosuvastatin 10 mg daily Chronic low back pain - continue home pain regimen Sleep apnea - continue CPAP HS Chronic rash/itching - continue home doxepin 75mg PO HS Diet: heart healthy VTE ppx: lovenox Code: Full. 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 His is his surrogate decision maker if he is unable to make decisions for himself. Dispo: admit to med/tele (2) Ascending aorta dilatation: (3) BPH with obstruction/lower urinary tract symptoms: (4) Lumbar back pain: (5) Sleep apnea: Admission and Anticipated Discharge Date Admission Date: March 02, 2024 Supervising Physician Co-Signing Physician Notes I personally examined the patient and verified all see points of history and exam, discussed case, and agree with decision making with Dr Geiger Feeling better whenever I see him. Still has some shortness of breath and dyspnea on exertion, but felt like he likely would be okay at homethat said he had still been on oxygenlater whenever we had him off of the oxygen he was still fairly dyspneic with walkingso obviously not yet good enough for discharge. Vitals noted, in general he is awake and alert fatigued but no distress. HEENT normocephalic atraumatic mucous membranes moist. Breathing unlabored no accessory muscle use good effort. Skin shows no rashes no pallor or icterus. Neuro without focal deficits. Viral bronchitis with asthma flareimprovingat first thought he would probably be good enough to get home today. But with exertion and off oxygen he is still too dyspneic to be safe at home. Continuing hospital care with IV steroids, nebulizers, oxygen support and other supportive care. Hopefully home soon. No clear role for antibioticsappears to be a viral bronchitis mechanism not bacterial pneumonia. 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 Discussed what an aneurysm is and what it means, compared to common misconceptions (such as the typical misconception that aneurysm is synonymous with rupture or dissection). DVT prophylaxisadd Lovenox Subjective Feeling improved this morning on 2Lpm O2 nasal canula, still short of breath but much improved and able to talk without stopping for breaths. Occasional cough with some chest tightness at rest. Cough is non productive. Also reports some lower extremity muscle cramps. In the afternoon, weaned off O2 and tried walking, became SOB and O2 dipped to 89 Review of Systems Review of Systems: as per hpi Physical Exam Constitutional: Iin no acute distress Respiratory: No accessory muscle use, cta b/l, no wheezes or rails Cardiovascular: Elevated rate, normal rhythm, no murmur appreciated Skin: no rashes, warm and dry Results & Data Results & Data Vital Signs (Past 12 Hours) Vital Signs Temp Pulse Pulse Resp BP BP Pulse Ox 03/03/24 07:16 9 L 03/03/24 07:06 85 16 93 03/03/24 01:57 03/03/24 01:51 96 H 03/03/24 01:45 95 H 18 91 03/03/24 01:21 36.8 C 101 H 20 143/89 H 93 03/03/24 00:10 98 H 22 137/108 H 92 03/02/24 23:39 92 03/02/24 23:28 88 03/02/24 23:19 92 H 18 141/79 H 92 03/02/24 21:42 88 L 03/02/24 21:27 37.3 C 103 H 22 151/90 H 92 O2 Del Method O2 Flow Rate 03/03/24 07:16 03/03/24 07:06 Nasal Cannula 2 03/03/24 01:57 Nasal Cannula 2 03/03/24 01:51 03/03/24 01:45 Nasal Cannula 2 03/03/24 01:21 Nasal Cannula 2 03/03/24 00:10 Nasal Cannula 2 03/02/24 23:39 Nasal Cannula 2 03/02/24 23:28 03/02/24 23:19 Room Air 03/02/24 21:42 Room Air 03/02/24 21:27 Room Air Resident Activity Tracking Resident Involvement: Resident Care Provided Care Provided: Adult Hospital Medicine
[2024-03-03 07:38] LABS: Hematocrit (blood only) 42.3 % (42.0-52.0); Hemoglobin 14.7 g/dl (14.0-18.0); Mean Corpuscular Hemoglobin 32.6 pg (25.0-34.0); Mean Corpuscular Hgb Conc 34.8 g/dL (32.0-36.0); Mean Corpuscular Volume 93.8 fL (80.0-100.0); Mean Platelet Volume 9.9 fL (9.4-12.4); Platelet Count 154 K/uL (130-400); RDW Coefficient of Variation 12.8 % (11.5-14.5); RDW Standard Deviation 44.1 fL (36.4-46.3); Red Blood Count 4.51 M/uL (4.70-6.10); White Blood Count 4.91 K/ul (4.8-10.8)
[2024-03-03 08:11] LABS: BUN Creatinine Ratio 16.7 (10-20); Calcium 9.8 mg/dl (8.6-10.3); Creatinine Clr Calc Pharmacy 92.8 ml/min; Est GFR (African American) 102.3 ml/min; Est GFR (Non-African American) 88.3 ml/min; Potassium 4.2 mmol/L (3.5-5.1)
[2024-03-03] MEDS: methylPREDNISolone 40 MG in SYRINGE 0 ML IV SCH (08:19)
[2024-03-03] MEDS: PREGABALIN 75 MG CAP PO SCH (08:19)
[2024-03-03] MEDS: TAMSULOSIN HCL 0.4 MG CAP PO SCH (08:20)
[2024-03-03] MEDS: CETIRIZINE HCL 10 MG TABLET PO SCH (08:20)
[2024-03-03] MEDS: MONTELUKAST SODIUM 10 MG TABLET PO SCH (08:20)
[2024-03-03] MEDS: ROSUVASTATIN CALCIUM 10 MG TAB PO SCH (08:20)
[2024-03-03] MEDS: MELOXICAM 7.5 MG TAB PO SCH (08:20)
[2024-03-03] MEDS ORDERED: methylPREDNISolone 125 MG/2 ML VIAL IV SCH (09:00)
--- NOTE | 2024-03-03 16:31 | Billing Data ---
Date of Service March 03, 2024 Coding Level of Care Code 83146 SUB INP/OBS CARE MIN
[2024-03-03] MEDS: DOXEPIN HCL 75 MG CAPSULE PO SCH (21:13)
[2024-03-03] MEDS: MELATONIN 3 MG TAB PO PRN (21:13)
[2024-03-03] MEDS: POLYETHYLENE (MIRALAX) 17 GM PACK PO PRN (21:42)
--- NOTE | 2024-03-03 21:46 | Electrocardiogram Report ---
Test Reason : Blood Pressure : / mmHG Vent. Rate : 100 BPM Atrial Rate : 000 BPM P-R Int : 188 ms QRS Dur : 148 ms QT Int : 362 ms P-R-T Axes : 000 -15 020 degrees QTc Int : 466 ms Poor data quality, interpretation may be adversely affected Probable Sinus rhythm Right bundle branch block Abnormal ECG When compared with ECG of 18-JAN-2024 14:04, No significant change Confirmed by Oscar Anderson ([id number]) on 03/03/2024 9:46:46 PM Referred By: REFERRED SELF Confirmed By:Oscar Anderson
--- NOTE | 2024-03-03 21:47 | Electrocardiogram Report ---
Test Reason : Blood Pressure : / mmHG Vent. Rate : 079 BPM Atrial Rate : 079 BPM P-R Int : 232 ms QRS Dur : 152 ms QT Int : 426 ms P-R-T Axes : 013 -11 008 degrees QTc Int : 488 ms Sinus rhythm with 1st degree A-V block Right bundle branch block Abnormal ECG When compared with ECG of 02-MAR-2024 21:34, No significant change Confirmed by Oscar Anderson ([id number] on 03/03/2024 9:47:06 PM Referred By: REFERRED SELF Confirmed By:Oscar Anderson
[2024-03-04 06:06] LABS: Hematocrit (blood only) 38.8 % (42.0-52.0); Hemoglobin 13.5 g/dl (14.0-18.0); Mean Corpuscular Hemoglobin 32.8 pg (25.0-34.0); Mean Corpuscular Hgb Conc 34.8 g/dL (32.0-36.0); Mean Corpuscular Volume 94.4 fL (80.0-100.0); Mean Platelet Volume 9.7 fL (9.4-12.4); Platelet Count 159 K/uL (130-400); RDW Standard Deviation 44.7 fL (36.4-46.3); Red Blood Count 4.11 M/uL (4.70-6.10); White Blood Count 9.68 K/ul (4.8-10.8)
[2024-03-04 06:18] LABS: BUN Creatinine Ratio 25.9 (10-20); Calcium 9.2 mg/dl (8.6-10.3); Creatinine Clr Calc Pharmacy 85.2 ml/min; Est GFR (African American) 98.8 ml/min; Est GFR (Non-African American) 85.2 ml/min; Potassium 4.2 mmol/L (3.5-5.1)
--- NOTE | 2024-03-04 08:11 | Hospitalist Progress Note ---
Date of Service March 04, 2024 Assessment & Plan (1) Asthma exacerbation: Plan: Pt is a 73 yo male with PMH of aortic dilation, BPH, chronic low back pain s/p laminectomy, depression, sleep apnea on CPAP, and asthma presenting d/t SOB and cough x1 week. Asthma exacerbation - lab work significant for no leukocytosis, BMP WNL, trop neg, BNP neg, COVID neg - VBG showed pH 7.42, pCO2 37, pO2 58 - CXR w/o consolidation or infiltrates to suggest PNA - outpatient CTA performed today showing mucous plugging and atelectasis, demonstration of thoracic aortic dilation to 4 cm and aortic root dilation to 4.6cm w/o acute dissection- neg for PE - duonebs q6R - s/p methylpred 125mg x1; continue with daily 40 mg IV methylpred, plan transition 50mg oral prednisone for total 5 days - continue home daily steroid inhaler - continue home allergy regimen; cetirizine and Singulair - incentive spirometer and flutter valve - wean oxygen as able; pt not on oxygen at baseline - would recommend outpatient PFTs upon discharge Aortic dilation - CTA results as above; last chest CT in 2020 w/o evidence of dilation/aneurysm - do not suspect his current symptoms are cardiac in nature - encouraged continued outpatient f/u with cardiology for further management BPH - continue home alfuzosin 10 mg daily HLD - continue with home rosuvastatin 10 mg daily Chronic low back pain - continue home pain regimen Sleep apnea - continue CPAP HS Chronic rash/itching - continue home doxepin 75mg PO HS Diet: heart healthy VTE ppx: lovenox Code: Full. 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 His is his surrogate decision maker if he is unable to make decisions for himself. Dispo: admit to med/tele (2) Ascending aorta dilatation: (3) BPH with obstruction/lower urinary tract symptoms: (4) Lumbar back pain: (5) Sleep apnea: Admission and Anticipated Discharge Date Admission Date: March 02, 2024 Supervising Physician Co-Signing Physician Notes I personally examined the patient and verified all see points of history and exam, discussed case, and agree with decision making with Dr Geiger present. updated to th ebest of my ability and to her satisfaction. he is feeling better than yesterday but still too much GANDARA to feel safe at home. vitals noted nad heent nc at mmm breathing unlabored no accessory muscles but does have fairly diminished air entry coughs w deep breath during cough faint wheeze. no conversational dyspnea Viral bronchitis with asthma flareimprovingbut not yet well enough for home. additional steroids today given range of dosing at the lower end of reasonable. continue supportive care. No clear role for antibioticsappears to be a viral bronchitis mechanism not bacterial pneumonia. 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 Discussed what an aneurysm is and what it means, compared to common misconceptions (such as the typical misconception that aneurysm is synonymous with rupture or dissection). DVT prophylaxisLovenox Subjective Patient seen at bedside, calm comfortable cooperative. Breathing slightly better than yesterday, still SOB on exertion. Patient understands that we are waiting until his breathing status improves, does not need oxygen before returning home. Physical Exam Constitutional: Iin no acute distress Eyes: PERRL, conjunctivae normal, anicteric sclerae ENMT: external ear and nose normal, oropharynx normal Respiratory: normal respiratory effort Auscultation: + wheezes (throughout) Cardiovascular: Elevated rate, normal rhythm, no murmur appreciated Skin: no rashes, warm and dry Results & Data Results & Data Vital Signs (Past 12 Hours) Vital Signs Temp Pulse Pulse Resp BP Pulse Ox O2 Del Method 03/04/24 08:05 36.6 C 73 20 132/82 92 Nasal Cannula 03/04/24 07:08 61 03/04/24 07:07 73 17 95 Room Air 03/04/24 03:36 36.8 C 66 18 148/86 H 97 Nasal Cannula 03/03/24 23:00 36.5 C 73 18 113/63 93 Nasal Cannula 03/03/24 22:17 68 03/03/24 22:09 Nasal Cannula 03/03/24 20:15 79 19 96 Nasal Cannula O2 Flow Rate 03/04/24 08:05 4 03/04/24 07:08 03/04/24 07:07 03/04/24 03:36 4 03/03/24 23:00 4 03/03/24 22:17 03/03/24 22:09 3 03/03/24 20:15 3 Resident Activity Tracking Resident Involvement: Resident Care Provided Care Provided: Adult Hospital Medicine
[2024-03-04] MEDS: ENOXAPARIN INJ 40 MG/0.4 ML SYR SQ SCH (08:23)
[2024-03-04] MEDS: FLUTICASONE/VILANTEROL 200/25MCG 14 PUFFS/INHALER INH SCH (10:33)
[2024-03-04] MEDS ORDERED: methylPREDNISolone 1000 MG/16 ML IV ONE (14:39)
[2024-03-04] MEDS: methylPREDNISolone 40 MG in SYRINGE 0 ML IV STA (15:55)
--- NOTE | 2024-03-04 16:03 | Billing Data ---
Date of Service March 04, 2024 Coding Level of Care Code 37332 SUB INP/OBS CARE MIN
[2024-03-04] MEDS: ALBUT/IPRATROP 3MG/0.5MG NEB 3 ML VIAL NEB PRN (17:43)
--- NOTE | 2024-03-05 07:13 | Hospitalist Progress Note ---
Date of Service March 05, 2024 Assessment & Plan Admission and Anticipated Discharge Date Admission Date: March 02, 2024 Results & Data Results & Data Vital Signs (Past 12 Hours) Vital Signs Temp Pulse Pulse Resp BP BP Pulse Ox 03/05/24 07:09 63 03/05/24 04:00 36.7 C 65 18 126/79 93 03/04/24 23:49 36.5 C 68 18 145/74 H 92 03/04/24 23:31 03/04/24 22:15 96 H O2 Del Method O2 Flow Rate 03/05/24 07:09 03/05/24 04:00 Nasal Cannula 3 03/04/24 23:49 Room Air 03/04/24 23:31 Nasal Cannula 4 03/04/24 22:15
[2024-03-05 08:18] LABS: BUN Creatinine Ratio 34.7 (10-20); Calcium 9.6 mg/dl (8.6-10.3); Creatinine Clr Calc Pharmacy 97.1 ml/min; Est GFR (Non-African American) 89.7 ml/min; Potassium 4.1 mmol/L (3.5-5.1)
[2024-03-05 08:20] LABS: Hemoglobin 13.9 g/dl (14.0-18.0); Mean Corpuscular Hemoglobin 32.9 pg (25.0-34.0); Mean Corpuscular Hgb Conc 34.8 g/dL (32.0-36.0); Mean Corpuscular Volume 94.6 fL (80.0-100.0); Mean Platelet Volume 10.3 fL (9.4-12.4); Platelet Count 178 K/uL (130-400); RDW Coefficient of Variation 12.8 % (11.5-14.5); RDW Standard Deviation 44.2 fL (36.4-46.3); Red Blood Count 4.23 M/uL (4.70-6.10); White Blood Count 11.13 K/ul (4.8-10.8)
--- NOTE | 2024-03-05 09:43 | XRay Report ---
XR chest 2V PA/lateral HISTORY: 73 years-old Male sob acute shortness breath COMPARISON: 03/02/2024 TECHNIQUE: PA and lateral views of the chest FINDINGS: Cardiac silhouette is enlarged. Atherosclerosis of the aorta. No pneumothorax, or pulmonary edema. Tr andres pleural effusions. Bones appear grossly intact. Subsegmental bibasilar opacities to prior. IMPRESSION: Unchanged trace pleural effusions with mild bibasilar atelectasis. ACT 112: Negative or not required by law. The above report was generated using voice recognition software. It may contain grammatical, syntax o r spelling errors. Electronically signed by: Bhupinder Wyatt M.D. 03/05/2024 9:40 AM
[2024-03-05] MEDS ORDERED: methylPREDNISolone 125 MG/2 ML VIAL IV ONE (11:37)
--- NOTE | 2024-03-05 11:56 | Discharge Summary ---
Date of Service March 05, 2024 Admission HPI Per Admitting Provider Pt is a 73 yo male with PMH of aortic dilation, BPH, chronic low back pain s/p laminectomy, depression, sleep apnea on CPAP, and asthma presenting d/t SOB and cough x1 week. Pt explains that he has been sick for the past week including productive cough of yellow-green sputum and feeling SOB. He has been using his daily inhalers in addition to his PRN albuterol at home but these did not seem to improve his breathing which prompted his presentation to the ER. He does note that he was sick 02/16 for a week and then felt better for a bit and then became sick again. He does note that these illnesses felt different. He belies that his allergies may have contributed to his current breathing difficulties. He does not wear oxygen at home. He also notes that he was recently diagnosed with an aortic aneurysm. He is f ollowing with cardiology for this. He had an outpatient CTA performed today for evaluation of the aneurysm. In the ER, pt was given duonebs x3 and methylpred 125mg x1. Admission Exam Per Admitting Provider Constitutional: NAD, vitals WNL. Respiratory: CTA bilaterally but with diminished breath sounds throughout. Non labored breathing. No rhonchi, wheezing, or crackles. Cardiovascular: RRR. No murmurs noted. No LE edema. Skin: No rashes or skin lesions noted. Neurologic: Sensation grossly intact. No FND appreciated. Psychiatric: Speech of normal pace and content. Mood and affect congruent. Principal Diagnosis Asthma Exacerbation Discharge Exam Constitutional WD/WN, vitals as above Respiratory normal respiratory effort, lungs clear to auscultation Cardiovascular RRR, no murmur, no edema Skin no rashes, warm and dry Discharge Data Allergies Allergy/AdvReac Type Severity Reaction Status Date / Time pollen extracts Allergy Intermediate RASH Verified 03/03/24 00:05 ITCHING Sulfa (Sulfonamide Allergy Intermediate RASH Verified 03/03/24 00:05 Antibiotics) phenytoin Allergy Unknown Unknown Verified 03/03/24 00:05 cat dander AdvReac Intermediate STUFFINESS, Verified 03/03/24 00:05 ITCHY dog dander AdvReac Intermediate STUFFINESS, Verified 03/03/24 00:05 ITCHY duloxetine AdvReac Intermediate dizziness, Verified 03/03/24 00:05 nausea mold AdvReac Intermediate STUFFINESS Verified 03/03/24 00:05 ITCHY Consultations 03/02/24 22:38 ED Decision to Admit Stat Hospital Course (1) Asthma exacerbation: Pt is a 73 yo male with PMH of aortic dilation, BPH, chronic low back pain s/p laminectomy, depression, sleep apnea on CPAP, and asthma presenting d/t SOB and cough x1 week. Asthma exacerbation - lab work significant for no leukocytosis, BMP WNL, trop neg, BNP neg, COVID neg - VBG showed pH 7.42, pCO2 37, pO2 58 - CXR wnl - outpatient CTA performed today showing mucous plugging and atelectasis - treated with duonebs - s/p methylpred 125mg x1; treated with daily 40 mg IV methylpred, In outpatient transition 50mg oral prednisone daily 3 days for total 7 days steroids - continue home daily steroid inhaler - continue home allergy regimen; cetirizine and Singulair - incentive spirometer and flutter valve - would recommend outpatient PFTs upon discharge Aortic dilation - on CTA; last chest CT in 2020 w/o evidence of dilation/aneurysm - do not suspect his current symptoms are cardiac in nature - encouraged continued outpatient f/u with cardiology for further management BPH - continue home alfuzosin 10 mg daily HLD - continue with home rosuvastatin 10 mg daily Chronic low back pain - continue home pain regimen Sleep apnea - continue CPAP HS Chronic rash/itching - continue home doxepin 75mg PO HS (2) Ascending aorta dilatation: (3) BPH with obstruction/lower urinary tract symptoms: (4) Lumbar back pain: (5) Sleep apnea: Total Time Total Time Spent Total Time Spent (In Minutes): <30 Discharge Plan Discharge Items Patient Disposition: Home - Self-Care Reason For Visit: ASTHMA EXACERBATION Discharge Diagnosis: Asthma Exacerbation Activity: Resume your previous activity Non-emergency contact: Primary Care Provider Call non-emergency contact if: you have any medication questions and your symptoms worsen Follow-up/Referrals: Carleen Richards DO [Primary Care Provider] - Diet: Regular Addtl Attending Provider Instructions: You were admitted to the hospital for asthma exacerbation. You were treated with steroids and albuterol inhalers, and your symptoms improved. Please complete your course of prednisone to ensure resolution of your asthma exacerbation. A discharge summary will be sent to your primary care physician to ensure continuity of care. Please bring this discharge summary with you to your next office appointment so that your provider can review it at that time. Follow-up appointments: Make a follow-up appointment with your PCP within the next week. It is very important that you follow up with them shortly after discharge from the hospital. Keep all your follow-up appointments as already scheduled. If you cannot make an appointment, notify your provider. Medications: Your medication list has been reviewed and reconciled upon discharge to ensure accuracy and continuity of care. An updated list of all your medications is included with your hospital discharge paperwork. Please review this list closely, and make note of any changes. * We sent a new medication called Prednisone to your pharmacy. Take Prednisone 50mg one tablet daily for 3 days starting tomorrow * Continue to use your albuterol inhaler every 6 hours as needed Take your medications as instructed; do not skip a dose of your medicines. Make sure all of your doctors know every medicine you are taking (including [id number] medicines, vitamins, and supplements). Call your primary care provider before taking any new medicines (including [id number] medicines, vitamins, and supplements), because some of these may interact with your current medications, or may make your symptoms worse. Tell your primary care provider if you cannot afford your medications. CONTACT YOUR PRIMARY CARE PROVIDER if you experience any of the following: Increased difficulty breathing Fever, chills Difficulty following your treatment plan, or difficulty taking medications CALL 911 OR GO TO THE EMERGENCY DEPARTMENT if you experience any of the following: Sudden, severe abdominal pain or nausea/vomiting Severe chest pain, or chest pain that radiates (moves) to your jaw or arm Sudden, severe shortness of breath or difficulty breathing Thank you for allowing us to participate in your care. Pending Studies at Discharge: No Stand-Alone Forms: My [facility] [employer], Smoking Cessation Medications and DC Order Prescriptions: New prednisone 50 mg tablet 50 mg PO DAILY 3 Days Qty: 3 0RF Continued cholecalciferol (vitamin D3) 50 mcg (2,000 unit) capsule 2,000 unit PO DAILY Qty: 30 5RF rosuvastatin 10 mg tablet 10 mg PO DAILY Qty: 90 3RF montelukast [Singulair] 10 mg tablet 10 mg PO QAM Qty: 90 3RF hydrocodone-acetaminophen 5-325 mg tablet 1 tab PO QID PRN (Reason: pain) Qty: 120 0RF Rx Instructions: Take 1 tablet by mouth 4 times daily as needed albuterol sulfate 90 mcg/actuation HFA aerosol inhaler 2 puff inhalation Q6H PRN (Reason: shortness of breath or wheezing) Qty: 6.7 2RF ondansetron 4 mg tablet,disintegrating 4 mg PO Q8H PRN (Reason: nausea and vomiting) Qty: 30 0RF acetaminophen [Tylenol Extra Strength] 500 mg tablet 500 mg PO Q6H PRN (Reason: PAIN/FEVER) alfuzosin 10 mg tablet extended release 24 hr 10 mg PO DAILY Rx Instructions: After the same meal each day meloxicam 15 mg tablet 15 mg PO DAILY Qty: 30 2RF fluticasone propion-salmeterol [Wixela Inhub] 250-50 mcg/dose blister with device 1 inh INH BID Qty: 180 3RF levalbuterol tartrate 45 mcg/actuation HFA aerosol inhaler 2 inh inhalation Q6H PRN (Reason: shortness of breath or wheezing) Qty: 15 2RF pregabalin [Lyrica] 75 mg capsule 75 mg PO BID Qty: 60 0RF doxepin 25 mg capsule 75 mg PO HS Rx Instructions: USED FOR RASH/ITCHING NOT DEPRESSION cetirizine 10 mg capsule 10 mg PO BID Discharge Orders: Discharge Order (Routine); Ordered 03/05/24 Ordered By: Aleisha Geiger Admission Data Admit Date/Time: 03/02/24 23:47 Attending Provider: Evan Farfan Admit Provider: Deanna Che Primary Care Provider: Carleen Richards Other Providers: Latia Christopher Other Interventions: Discharge Summary Assessment (RN) Last Done: 03/05/24 12:00 Supervising Physician Co-Signing Physician Notes I personally examined the patient and verified all see points of history and exam, discussed case, and agree with decision making with Dr Geiger feeling better still some shortness of breath with exertion but much better. Still some coughing fits but better. Feels up to going home. Vitals noted, in general he is awake and alert pleasant no distress. HEENT normocephalic atraumatic mucous membranes moist. Mucus sounding rhonchi present but much better air entry than previous. No accessory muscle use, no conversational dyspnea, yet again on room air. Viral bronchitis with asthma flareimprovingstable for home. Finish out a course of steroids. More liberal use of beta agonist if needed for the near future. Aortic aneurysm4.6 cmconsistent with every 6 month follow-upobviously will follow-up with his primary cook chef for further recommendations. Discussed what an aneurysm is and what it means, compared to common misconceptions (such as the typical misconception that aneurysm is synonymous with rupture or dissection). DVT prophylaxisLovenox Resident Activity Tracking Resident Involvement: Resident Care Provided Care Provided: Adult Hospital Medicine
[2024-03-05] MEDS: methylPREDNISolone 40 MG in SYRINGE 0 ML IV ONE (12:51)
--- NOTE | 2024-03-05 14:25 | Billing Data ---
Date of Service March 05, 2024 Coding Level of Care Code 59101 IN/OBS DISCH 30 MIN/LESS
== END 2024-03-05 14:07 | disposition home or self-care (01) | DRG 202 ==
LOC: ED 21:24 → 2N 23:47 → SUATTDRO 23:47 → 2N 03-03 00:57 → UNDODISIN 03-05 13:01

== ENCOUNTER 2025-01-23 16:17 | Inpatient (IN) ==
--- NOTE | 2025-01-23 17:07 | Emergency Department Note ---
Impression & Plan Hypoxic, Influenza A, Shortness of breath, Vomiting, Fever, Cough, Nausea ED Provider Note CHIEF COMPLAINT: Coughing, vomiting, wheezing HISTORY OF PRESENTING ILLNESS: The patient is a 74-year-old male who presents to the emergency department with his stating, "I think I have the flu. I am vomiting, coughing, and have a fever". Flulike symptoms began 3 days ago. He confirms feeling short of breath, coughing up mucus, and headaches. Denies abdominal pain, chest pain, constipation, diarrhea. REVIEW OF SYSTEMS: See HPI for pertinent positives and pertinent negatives. ALLERGIES: Sulfa antibiotics, phenytoin, duloxetine, pollen, cat and dog dander, mold MEDICATIONS: See below PAST MEDICAL HISTORY: See below PHYSICAL EXAM: VITALS: Vitals are noted on the nurse's note and reviewed by myself. Patient O2 saturation ranged from 89-94% on exam. Patient was hypoxic and required 2 L oxygen via nasal cannula. GENERAL: 74-year-old male, ill-appearing, in no acute distress, nondiaphoretic, well-developed well-nourished. SKIN: Capillary refill less than 2 seconds. HEENT: Normocephalic. PERRLA. EOMI. Nares patent. Mucous membranes moist. Neck is supple without nuchal rigidity. No cervical lymphadenopathy appreciated. TM visualized bilaterally without abnormality. Throat without tonsillar hypertrophy, tonsillar exudates, uvula is midline. HEART: Regular rate and rhythm without murmurs gallops or rubs. LUNGS: Diffuse bilateral expiratory wheeze appreciated on exam. No rales or rhonchi. Patient appears short of breath while having conversations with me. No retractions or accessory muscle use. ABDOMEN: Soft, nontender, without masses or organomegaly. No guarding or rebound tenderness. NEURO: Patient was alert and oriented. No focal neurological deficits. DIFFERENTIAL DIAGNOSIS: Viral infection, influenza, COVID-19, bacterial infection, allergic rhinitis, sinusitis, pneumonia, pneumothorax, bronchitis, GERD, cardiac cause, among others. ED COURSE AND MEDICAL DECISION MAKING: HISTORY FROM INDEPENDENT HISTORIAN: The patient himself and his . MEDICATIONS GIVEN: 3 ml DuoNeb breathing treatment, Phenergan 12.5 mg IV, Tylenol 1000 mg IV, Tamiflu 75 mg PO, 1 L normal saline MONITOR: Continuous telemetry monitor: Order was placed for continuous telemetry monitor. Patient was placed on the telemetry monitor and continuous pulse ox. Patient was noted to be in normal sinus rhythm at an initial rate of 93 bpm per my interpretation. EKG: EKG was interpreted by myself as sinus rhythm with a first-degree heart block. Right bundle branch block. These findings are consistent with previous EKGs. QT interval is lengthened. No obvious sign of arrhythmias. No ST wave or T wave abnormalities appreciated. INTERPRETATION OF LABS: I interpreted the labs with full lab results as below in the lab section of this note. Pertinent lab results discussed in the MDM section below. INTERPRETATION OF IMAGING: Imaging studies were interpreted by myself and read by radiology as per the imaging section of this note. Chest x-ray - No acute cardiopulmonary findings. ESCALATION OF CARE CONSIDERED: Escalation of care was considered due to the patient's presentation and flulike symptoms. Patient was short of breath on exam and was hypoxic ranging from 89% - 94% on room air. Upper respiratory BioFire resulted positive for influenza A. Patient's symptoms did not improve after a 3 mL DuoNeb breathing treatment. Patient was placed on 2 L nasal cannula. Patient was admitted to the hospitalist team for overnight evaluation and monitoring of his symptoms. CONSULTATIONS: [facility] hospitalist Dr. Christopher - the patient was presented to the [facility] hospitalist team. The patient is influenza A positive and was hypoxic with no improvement after a DuoNeb breathing treatment. Bilateral expiratory wheeze appreciated on exam. She confirms that she would evaluate the patient and an ED decision to admit was placed. The patient was admitted with the hospitalist team and the remainder of his care was provided by them. [facility] SUMMARY: The patient is a 74-year-old male who presents to the emergency department due to flulike symptoms for 3 days. He confirms feeling short of breath, coughing up mucus, vomiting, fevers, and headaches. Denies abdominal pain, chest pain, constipation, diarrhea. On exam his pulse and blood pressure are within normal limits. Oxygen saturation upon triage arrival was 93%. During his emergency department stay his saturation varied from 89 to 94%. He was hypoxic and required 2 L nasal cannula. He was lying comfortably in bed and vigorously coughing. HEENT exam was unremarkable. Chest auscultation reveals RRR without murmurs appreciated. Diffuse bilateral expiratory wheeze appreciated during lung auscultation. No rales or rhonchi. Patient was short of breath when having conversations with me. No retractions or accessory muscle use. No nasal flaring. The abdomen is soft and nontender. The patient was alert and oriented. CBC, CMP, upper respiratory BioFire, and chest x-ray were ordered. DuoNeb breathing treatment, Phenergan, and Tylenol were given for symptom management. WBC normal 5.87. RBC normal 4.40, when compared to previous numbers this is within his range. Sodium slightly lowered 134. No other electrolyte abnormalities. Upper respiratory swab results positive for influenza A. Chest x-ray shows no acute cardiopulmonary finding. On reevaluation of the patient his diffuse bilateral wheeze as well as oxygen saturation has not improved. He was still hypoxic and requiring oxygen. A dose of Tamiflu and 1 L normal saline was given. I had a long discussion with the patient regarding his influenza diagnoses as well as being hypoxic on exam. I discussed this case with my attending Dr. Del Rio and we both agreed that would be best with patient is observed overnight and symptom managed until the virus passes and his vitals improved. The patient was admitted to the [facility] Hospitalist team which can be seen in detail above. The patient and his agreed to this treatment plan and were able to ask questions. The patient was admitted. DIAGNOSIS: Hypoxic, Influenza A, Shortness of breath, vomiting, fever, cough, nausea The chart was completed utilizing myThings Speech voice recognition software. Grammatical errors, random word insertions, pronoun errors, and incomplete sentences are an occasional consequence of this system due to software limitations, ambient noise, and hardware issues. Any formal questions or concerns about the content, text, or information contained within the body of this dictation should be directly addressed to the provider for clarification. 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 INH. CONTROLLED WITH SCHEDULED INHALER> BEEN YRS SINCE LAST ATTACK Post laminectomy syndrome (Chronic) Chronic, continuous use of opioids (Chronic) Sleep apnea (Chronic) CPAP AT HS Chronic pain syndrome (Chronic) Rotator cuff tear (Chronic) Idiopathic polyneuropathy (Chronic) Lumbar spinal stenosis (Chronic) Medical History Asthma exacerbation Hypoxia Hypoxia Diaphoresis Stroke-like symptoms Prostatitis Dysuria Acute exacerbation of chronic low back pain Arthritis Nocturia Umbilical hernia Encounter for pre-operative examination Carpal tunnel syndrome Shingles rash RECOVERING FROM SHINGLES AT PRESENT> SCABS ARE HEALING OVER AT THIS TIME Osteoarthritis Periumbilical abdominal pain Intractable abdominal pain Etiology of the pain at this time is really unrelated to any acute abdomen patient is fairly comfortable and after discussing with the ER physician felt that the pain was gone and he really did not receive any analgesics this may been self-limiting process from my point of view patient can be discharged and return on a as needed basis Hepatomegaly Chest pain radiating to arm Chest pain radiating to jaw Surgical History History of mandibular surgery open right jaw repair History of carpal tunnel release History of colonoscopy Hx of cataract surgery LEFT H/O arthroscopic knee surgery RIGHT H/O rotator cuff surgery R/L History of lumbar surgery RODS History of hernia repair Family History Brother Lung cancer Myocardial infarction Father Heart disease Myocardial infarction Congestive heart failure Sister Myocardial infarction Mother Cancer COPD (chronic obstructive pulmonary disease) Denies family history of Ovarian cancer Prostate cancer Breast cancer Colorectal cancer Social History Smoking Status: Never smoker Tobacco Type: Cigarettes Age Started Using Tobacco: 12; Age Quit Using Tobacco: 20; packs per day: 0.5; Second Hand Exposure: No; Do You Dip or Chew Tobacco: No; Hx Alcohol Use: No Hx Substance Use: No Preferred Language: Burundian Communication Ability: Impaired Visual Impairment: Limited Hearing Ability: Hard of Hearing Director Of Enrollment Required: No Beliefs That Will Affect Care: None marital status: Current Living Situation: Spouse current occupational status: retired How many Children do You have: 2 Feels Safe at Home: Yes Safety Concerns: Feels Safe At This Time Childhood Exposure to Second-Hand Smoke: Yes caffeine: Yes (coffee in the morning ) Dental Care, Regularly: Yes Physical Activity Frequency: 1-2 Times per Week Seatbelt Use: always Sunscreen Use: No (doesn't go in the sun ) Assistive Devices: Glasses Allergies Allergies Allergy/AdvReac Type Severity Reaction Status Date / Time pollen extracts Allergy Intermediate RASH Verified 10/09/24 14:01 ITCHING Sulfa (Sulfonamide Allergy Intermediate RASH Verified 10/09/24 14:01 Antibiotics) phenytoin Allergy Unknown Unknown Verified 10/09/24 14:01 cat dander AdvReac Intermediate STUFFINESS, Verified 10/09/24 14:01 ITCHY dog dander AdvReac Intermediate STUFFINESS, Verified 10/09/24 14:01 ITCHY duloxetine AdvReac Intermediate dizziness, Verified 10/09/24 14:01 nausea mold AdvReac Intermediate STUFFINESS Verified 10/09/24 14:01 ITCHY Home Meds Home Medications Medication Instructions Recorded Confirmed cetirizine 10 mg capsule 10 mg PO BID 11/27/19 01/23/25 doxepin 75 mg capsule 75 mg PO QAM 01/23/25 01/23/25 fluticasone 250 mcg-salmeterol 50 1 inh inhalation BID 01/23/25 01/23/25 mcg/dose blistr powdr for inhalation montelukast 10 mg tablet 10 mg PO DAILY 01/23/25 01/23/25 rosuvastatin 10 mg tablet 10 mg PO DAILY 01/23/25 01/23/25 Previous Rx's Medication Instructions Recorded cholecalciferol (vitamin D3) 50 2,000 unit PO DAILY #30 caps 09/08/22 mcg (2,000 unit) capsule fluticasone 250 mcg-salmeterol 50 1 inh inhalation BID #180 ea 01/31/24 mcg/dose blistr powdr for inhalation (Samson Inhub) albuterol sulfate 90 mcg/actuation 2 puff inhalation Q6H PRN 02/25/24 aerosol inhaler shortness of breath or wheezing #6.7 grams alfuzosin 10 mg tablet,extended 10 mg PO DAILY #90 tabs 07/05/24 release 24 hr pregabalin 150 mg capsule (Lyrica) 150 mg PO BID #60 caps 08/28/24 hydrocodone 10 mg-acetaminophen 1 tab PO QID PRN pain #90 tabs 01/16/25 325 mg tablet Results & Data (ED) Vital Signs Vital Signs - 24 hr 01/23/25 17:37 01/23/25 17:55 01/23/25 19:00 Temperature 36.7 C Temperature Source Axillary Pulse Rate 88 Pulse Rate [Apical] 82 83 Pulse Rhythm [Apical] Regular Regular Pulse Strength [Apical] Normal Normal Respiratory Rate 17 28 H Respiratory Effort / Characteristics Non-Labored Respiratory Depth Normal Respiratory Pattern Regular Blood Pressure [Right Arm] 96/75 L 116/81 Blood Pressure Mean [Right Arm] 82 92 Blood Pressure Position [Right Arm] Lying Sitting Pulse Oximetry 94 92 Oxygen Delivery Method Room Air Room Air Oxygen Flow Rate 01/23/25 19:20 01/23/25 19:20 Temperature Temperature Source Pulse Rate Pulse Rate [Apical] Pulse Rhythm [Apical] Pulse Strength [Apical] Respiratory Rate Respiratory Effort / Characteristics Respiratory Depth Respiratory Pattern Blood Pressure [Right Arm] Blood Pressure Mean [Right Arm] Blood Pressure Position [Right Arm] Pulse Oximetry 89 L 93 Oxygen Delivery Method Room Air Nasal Cannula Oxygen Flow Rate 2 Laboratory Data 01/24/25 03:05 01/24/25 03:05 Lab Results 01/23/25 01/23/25 Range/Units 16:50 20:04 WBC 5.87 (4.8-10.8) K/ul RBC 4.40 L (4.70-6.10) M/uL Hgb 14.0 (14.0-18.0) g/dl Hct 40.6 L (42.0-52.0) % MCV 92.3 (80.0-100.0) fL MCH 31.8 (25.0-34.0) pg MCHC 34.5 (32.0-36.0) g/dL RDW Std Deviation 43.7 (36.4-46.3) fL RDW Coeff of Angelita 12.9 (11.5-14.5) % Plt Count 131 (130-400) K/uL MPV 10.0 (9.4-12.4) fL Immature Gran % (Auto) 0.5 % Neut % (Auto) 81.0 % Lymph % (Auto) 8.2 % Prentiss % (Auto) 9.9 % Eos % (Auto) 0.2 % Baso % (Auto) 0.2 % Neut # (Auto) 4.76 (1.40-6.50) K/uL Lymph # (Auto) 0.48 L (1.20-3.40) K/uL Prentiss # (Auto) 0.58 (0.11-0.59) K/uL Eos # (Auto) 0.01 (0.00-0.50) K/uL Baso # (Auto) 0.01 (0.00-0.20) K/uL Immature Gran # (Auto) 0.03 (0.01-0.20) K/uL Sodium 134 L (136-145) mmol/L Potassium 3.9 (3.5-5.1) mmol/L Chloride 104 (98-107) mmol/L Carbon Dioxide 22 (21-32) mmol/L Anion Gap 8 (3-11) BUN 14 (6-23) mg/dl Creatinine 0.86 (0.6-1.4) mg/dl Est Cr Clr Drug Dosing 82.7 ml/min eGFR 89.74 BUN/Creatinine Ratio 16.3 (10-20) Glucose 123 H (70-99(Fasting)) mg/dl Calcium 9.3 (8.6-10.3) mg/dl Total Bilirubin 1.2 H (0.2-1.0) mg/dl AST 18 (13-39) U/L ALT 11 (7-52) U/L Alkaline Phosphatase 56 (34-104) U/L Total Protein 7.5 (6.0-8.3) gm/dl Albumin 4.6 (3.4-5.0) gm/dl Globulin 2.9 (2.5-4.0) gm/dl Albumin/Globulin Ratio 1.6 (0.9-2) Urine Color Yellow Urine Appearance Clear (Clear) Urine pH 6.0 (4.5-7.5) Ur Specific [place] 1.012 (1.000-1.030) Urine Protein Negative (Negative) Urine Glucose (UA) Negative (Negative) Urine Ketones 1+ H (Negative) Urine Blood Negative (Negative) Urine Nitrite Negative (Negative) Urine Bilirubin Negative (Negative) Urine Urobilinogen Negative (Negative) Ur Leukocyte Esterase Negative (Negative) Administered Medications Acetaminophen (Acetaminophen 325 Mg Tab) 650 mg PO Q4H PRN PRN Reason: pain/fever Stop: 02/22/25 23:09 Last Admin: 01/24/25 08:51 Dose: 650 mg Documented By: JEREMY Hydrocodone Bitart/Acetaminophen (Hydrocodone/Acetaminophen 10/325 Tab) 1 tab PO QID PRN PRN Reason: pain Stop: 02/06/25 23:09 Last Admin: 01/24/25 13:02 Dose: 1 tab Documented By: Admin: 01/24/25 06:08 Dose: 1 tab Documented By: Admin: 01/24/25 00:06 Dose: 1 tab Documented By: WHITLEY Albuterol (Albut/Ipratrop 3mg/0.5mg Neb 3 Ml Vial) 3 ml NEB Q4R FIDELIA; Protocol Stop: 02/22/25 23:09 Last Admin: 01/24/25 15:12 Dose: 3 ml Documented By: Admin: 01/24/25 10:24 Dose: 3 ml Documented By: Admin: 01/24/25 07:15 Dose: 3 ml Documented By: Admin: 01/24/25 04:09 Dose: Not Given Documented By: Admin: 01/24/25 00:07 Dose: 3 ml Documented By: WHITLEY Cetirizine HCl (Cetirizine Hcl 10 Mg Tablet) 10 mg PO BID FIDELIA Stop: 02/22/25 23:09 Last Admin: 01/24/25 08:46 Dose: 10 mg Documented By: Admin: 01/24/25 00:07 Dose: 10 mg Documented By: WHITLEY Enoxaparin Sodium (Enoxaparin Inj 40 Mg/0.4 Ml Syr) 40 mg SQ HS FIDELIA Stop: 02/22/25 23:09 Last Admin: 01/24/25 00:07 Dose: 40 mg Documented By: WHITLEY Fluticasone/Vilanterol (Fluticasone/Vilanterol 100/25mcg 14 Puffs/Inhaler) 1 puffs INH DAILY FIDELIA Stop: 02/23/25 08:59 Last Admin: 01/24/25 08:47 Dose: 1 puffs Documented By: JEREMY Montelukast Sodium (Montelukast Sodium 10 Mg Tablet) 10 mg PO DAILY FIDELIA Stop: 02/23/25 08:59 Last Admin: 01/24/25 08:47 Dose: 10 mg Documented By: JEREMY Oseltamivir Phosphate (Oseltamivir Phosphate 75 Mg Cap) 75 mg PO BID FIDELIA Stop: 01/28/25 09:01 Last Admin: 01/24/25 08:45 Dose: 75 mg Documented By: JEREMY Pregabalin (Pregabalin 150 Mg Cap) 150 mg PO BID [facility] Stop: 02/22/25 23:09 Last Admin: 01/24/25 08:46 Dose: 150 mg Documented By: Admin: 01/24/25 00:07 Dose: 150 mg Documented By: WHITLEY Rosuvastatin Calcium (Rosuvastatin Calcium 10 Mg Tab) 10 mg PO DAILY FIDELIA Stop: 02/23/25 08:59 Last Admin: 01/24/25 08:46 Dose: 10 mg Documented By: JEREMY Tamsulosin HCl (Tamsulosin Hcl 0.4 Mg Cap) 0.4 mg PO DAILY [facility] Stop: 02/23/25 08:59 Last Admin: 01/24/25 08:46 Dose: 0.4 mg Documented By: JEREMY Discontinued Medications Albuterol (Albut/Ipratrop 3mg/0.5mg Neb 3 Ml Vial) 3 ml NEB NOW [facility]; Protocol Stop: 01/23/25 17:31 Last Admin: 01/23/25 18:00 Dose: 3 ml Documented By: ISAMAR Doxepin HCl (Doxepin Hcl 75 Mg Capsule) 75 mg PO QAM [facility] Stop: 02/23/25 08:59 Last Admin: 01/24/25 08:45 Dose: Not Given Documented By: JEREMY Promethazine HCl (Phenergan) 12.5 mg in 50.5 mls @ 202 mls/hr IV NOW STA Stop: 01/23/25 17:44 Last Infusion: 01/23/25 18:58 Dose: Infused Documented By: Admin: 01/23/25 18:22 Dose: 202 mls/hr Documented By: ISAMAR Acetaminophen (Ofirmev) 1,000 mg in 100 mls @ 400 mls/hr IV NOW STA Stop: 01/23/25 17:44 Last Infusion: 01/23/25 18:21 Dose: Infused Documented By: Admin: 01/23/25 18:00 Dose: 400 mls/hr Documented By: ISAMAR Sodium Chloride (Nss) 1,000 mls @ 999 mls/hr IV .Q1H1M ONE Stop: 01/23/25 20:01 Last Infusion: 01/23/25 21:43 Dose: Infused Documented By: Admin: 01/23/25 19:08 Dose: 999 mls/hr Documented By: ISAMAR Oseltamivir Phosphate (Oseltamivir Phosphate 75 Mg Cap) 75 mg PO NOW STA Stop: 01/23/25 19:02 Last Admin: 01/23/25 19:09 Dose: 75 mg Documented By: ISAMAR Imaging Data Radiologist's Impression: Chest X-Ray 01/23/25 16:23 EXAM: Radiograph of the Chest 1 View INDICATION: Illness TECHNIQUE: Frontal view of the chest. COMPARISON: 12/26/2024 FINDINGS: Lungs and pleural spaces: Stable interstitial scarring. No consolidation or pulmonary edema. No pleural effusion or pneumothorax. Heart: Stable prominent cardiac shadow. Mediastinum: Normal contour. Bones/joints: Metallic anchor projects left proximal humerus. Bilateral rotator cuff pathology and acromioclavicular arthritic change. No acute osseous abnormality. Soft tissues: No abnormality noted. No radiopaque foreign body noted. Vasculature: Stable ectatic aorta. Upper abdomen: No abnormality noted. IMPRESSION: No acute cardiopulmonary disease. ACT 112: N/A Electronically signed by Cara Guthrie 01-23-2025 5:40 PM Discharge Plan Visit Data Chief Complaint: Vomiting Stated Complaint: COUGHING, VOMITING, WHEEZING ED Provider: Ramez Del Rio ED Midlevel Provider: Becky Tomlinson Discharge Problem: Hypoxic, Influenza A, Shortness of breath, Vomiting, Fever, Cough, Nausea Patient Disposition: Admitted As Inpatient Condition: Good Discharge Instructions Interventions: ED Discharge Assessment Last Done: 01/24/25 10:55 Discharge Problem: Vomiting Qualifiers: Vomiting type: unspecified Nausea presence: with nausea Qualified Code(s): R 11.2 - Nausea with vomiting, unspecified Fever Qualifiers: Fever type: unspecified Qualified Code(s): R50.9 - Fever, unspecified Cough Qualifiers: Cough type: acute Qualified Code(s): R05.1 - Acute cough
[2025-01-23 17:21] LABS: Adenovirus PCR Not Detected (NotDetected); Bordetella parapertussis PCR Not Detected (NotDetected); Bordetella pertussis PCR Not Detected (NotDetected); Chlamydia pneumoniae PCR Not Detected (NotDetected); Coronavirus 229E PCR Not Detected (NotDetected); Coronavirus CoV-2 (COVID19)PCR Not Detected (NotDetected); Coronavirus HKU1 PCR Not Detected (NotDetected); Coronavirus NL63 PCR Not Detected (NotDetected); Coronavirus OC43PCR Not Detected (NotDetected); Human Metapneumovirus PCR Not Detected (NotDetected); Influenza A (H1 2009) PCR DETECTED (NotDetected); Influenza B PCR Not Detected (NotDetected); Mycoplasma pneumoniae PCR Not Detected (NotDetected); Parainfluenza Virus 1 PCR Not Detected (NotDetected); Parainfluenza Virus 2 PCR Not Detected (NotDetected); Parainfluenza Virus 3 PCR Not Detected (NotDetected); Parainfluenza Virus 4 PCR Not Detected (NotDetected); Respiratory Syncytial VirusPCR Not Detected (NotDetected); Rhinovirus/Enterovirus PCR Not Detected (NotDetected)
[2025-01-23 17:25] LABS: Albumin Globulin Ratio 1.6 (0.9-2); Albumin Level 4.6 gm/dl (3.4-5.0); BUN Creatinine Ratio 16.3 (10-20); Basophils # (auto) 0.01 K/uL (0.00-0.20); Basophils % (auto) 0.2 %; Bilirubin,Total 1.2 mg/dl (0.2-1.0); Calcium 9.3 mg/dl (8.6-10.3); Creatinine Clr Calc Pharmacy 82.7 ml/min; Eosinophils # (auto) 0.01 K/uL (0.00-0.50); Eosinophils % (auto) 0.2 %; Globulin 2.9 gm/dl (2.5-4.0); Hematocrit (blood only) 40.6 % (42.0-52.0); Immature Granulocytes # (auto) 0.03 K/uL (0.01-0.20); Immature Granulocytes % (auto) 0.5 %; Lymphocytes # (auto) 0.48 K/uL (1.20-3.40); Lymphocytes % (auto) 8.2 %; Mean Corpuscular Hemoglobin 31.8 pg (25.0-34.0); Mean Corpuscular Hgb Conc 34.5 g/dL (32.0-36.0); Mean Corpuscular Volume 92.3 fL (80.0-100.0); Monocytes # (auto) 0.58 K/uL (0.11-0.59); Monocytes % (auto) 9.9 %; Neutrophils # (auto) 4.76 K/uL (1.40-6.50); Platelet Count 131 K/uL (130-400); Potassium 3.9 mmol/L (3.5-5.1); RDW Coefficient of Variation 12.9 % (11.5-14.5); RDW Standard Deviation 43.7 fL (36.4-46.3); Total Protein 7.5 gm/dl (6.0-8.3); White Blood Count 5.87 K/ul (4.8-10.8)
--- NOTE | 2025-01-23 17:46 | XRay Report ---
EXAM: Radiograph of the Chest 1 View INDICATION: Illness TECHNIQUE: Frontal view of the chest. COMPARISON: 12/26/2024 FINDINGS: Lungs and pleural spaces: Stable interstitial scarring. No consolidation or pulmonary edema. No pleural effusion or pneumothorax. Heart: Stable prominent cardiac shadow. Mediastinum: Normal contour. Bones/joints: Metallic anchor projects left proximal humerus. Bilateral rotator cuff pathology and acromioclavicular arthritic change. No acute osseous abnormality. Soft tissues: No abnormality noted. No radiopaque foreign body noted. Vasculature: Stable ectatic aorta. Upper abdomen: No abnormality noted. IMPRESSION: No acute cardiopulmonary disease. ACT 112: N/A Electronically signed by Cara Guthrie 01-23-2025 5:40 PM
[2025-01-23] MEDS: ACETAMINOPHEN 1,000 MG/100 ML VIAL IV STA (18:00)
[2025-01-23] MEDS: ALBUT/IPRATROP 3MG/0.5MG NEB 3 ML VIAL NEB STA (18:00)
--- NOTE | 2025-01-23 18:04 | Emergency Department Note ---
ED Visit Note I was consulted by the Advanced Practice Provider Becky Tomlinson PA-C. I performed a substantive portion of the visit including all aspects of medical decision making. Patient found to have the flu. Patient hypoxic at 89%. Patient was admitted to the medicine service. Tamiflu ordered. .
[2025-01-23] MEDS: PROMETHAZINE 12.5 MG/50.5 ML BAG IV STA (18:22)
[2025-01-23] MEDS: SODIUM CHLORIDE 0.9% 1,000 ML IV ONE (19:08)
[2025-01-23] MEDS: OSELTAMIVIR PHOSPHATE 75 MG CAP PO STA (19:09)
--- NOTE | 2025-01-23 20:00 | History & Physical Report ---
Date of Service January 23, 2025 Assessment & Plan (1) Influenza A: Plan 74-year-old male PMHx HTN, CAD, depression, vitamin D deficiency, and obesity presenting for SOB x 2 days. ED evaluation reveals no leukocytosis, CMP with sodium 134, glucose 123, bilirubin 1.2; nasal swab positive for flu A, BioFire negative otherwise; CXR without acute findings; EKG sinus rhythm with a first- degree AV block and RBBB at 93 bpm. Patient was provided with 1L NSS, promethazine, Tamiflu, albuterol, and acetaminophen in ED. #Influenza A SOB main concern; Vomiting and productive coughing x 2 days; currently requiring 2L O2 via NC for previously found hypoxia at 89%, no O2 at baseline. Received annual influenza vaccine in 2023. - CBC without leukocytosis; CMP grossly WNL; nasal swab positive for influenza A; BioFire negative; CXR without acute findings - CBC, BMP am - Droplet precautions - Start Tamiflu 75mg BID (CrCl 82 mL/min) - DuoNeb q4hr + prn; Tylenol for fever/pain; continue home inhalers - IC + FV; O2 prn, wean as patient tolerates if needed- No O2 at baseline #Asthma- albuterol inhaler, fluticasone/salmeterol inhaler, montelukast #Chronic low back pain- Meloxicam, pregabalin, hydrocodone/acetaminophen #HLD- Rosuvastatin #BPH- Alfuzosin #Depression- Doxepin Dispo: Admit, med/tele VTE Prophylaxis: Lovenox This document was dictated utilizing Point. Please excuse any grammatical errors that may be secondary to use of this software. Admission and Anticipated Discharge Date Admission Date: 01/23/2025 History of Present Illness Chief Complaint: SOB Primary Care Provider: Carleen Richards DO 74-year-old male PMHx HTN, CAD, depression, vitamin D deficiency, and obesity presenting for SOB x 2 days. States he believes he has the flu because he has been coughing, vomiting, and felt feverish. Main concern is that he is having SOB with a productive cough which is producing yellow/green sputum. Had 3 episodes of vomiting the day [employer] E[employer] and then 3 episodes of vomiting the day of arrival. Some abdominal pain, but no D/C. States that his chest does feel like it is congested, but he is not having URI symptoms and no reported fever. His chest feels sore because he has been coughing extensively. No known sick contacts. Patient did receive his influenza vaccine this year. Denying chest pain, palpitations, numbness/tingling, syncope, weakness, lightheadedness, LUTS, or headaches. ED evaluation reveals no leukocytosis, CMP with sodium 134, glucose 123, bilirubin 1.2; nasal swab positive for flu A, BioFire negative otherwise; CXR without acute findings; EKG sinus rhythm with a first-degree AV block and RBBB at 93 bpm. Patient was provided with 1L NSS, promethazine, Tamiflu, albuterol, and acetaminophen in ED. Please see Dr. Christopher's attestation for adjustments/additions to treatment plan. Allergies Allergy/AdvReac Type Severity Reaction Status Date / Time pollen extracts Allergy Intermediate RASH Verified 10/09/24 14:01 ITCHING Sulfa (Sulfonamide Allergy Intermediate RASH Verified 10/09/24 14:01 Antibiotics) phenytoin Allergy Unknown Unknown Verified 10/09/24 14:01 cat dander AdvReac Intermediate STUFFINESS, Verified 10/09/24 14:01 ITCHY dog dander AdvReac Intermediate STUFFINESS, Verified 10/09/24 14:01 ITCHY duloxetine AdvReac Intermediate dizziness, Verified 10/09/24 14:01 nausea mold AdvReac Intermediate STUFFINESS Verified 10/09/24 14:01 ITCHY Home Medications Medication Instructions Recorded Confirmed Type cetirizine 10 mg capsule 10 mg PO BID 11/27/19 01/23/25 History cholecalciferol (vitamin D3) 50 2,000 unit PO DAILY #30 caps 09/08/22 01/23/25 Rx mcg (2,000 unit) capsule fluticasone 250 mcg-salmeterol 50 1 inh inhalation BID #180 ea 01/31/24 01/23/25 Rx mcg/dose blistr powdr for inhalation (Wixela Inhub) albuterol sulfate 90 mcg/actuation 2 puff inhalation Q6H PRN 02/25/24 01/23/25 Rx aerosol inhaler shortness of breath or wheezing #6.7 grams alfuzosin 10 mg tablet,extended 10 mg PO DAILY #90 tabs 07/05/24 01/23/25 Rx release 24 hr pregabalin 150 mg capsule (Lyrica) 150 mg PO BID #60 caps 08/28/24 01/23/25 Rx hydrocodone 10 mg-acetaminophen 1 tab PO QID PRN pain #90 tabs 01/16/25 01/23/25 Rx 325 mg tablet doxepin 75 mg capsule 75 mg PO QAM 01/23/25 01/23/25 History fluticasone 250 mcg-salmeterol 50 1 inh inhalation BID 01/23/25 01/23/25 History mcg/dose blistr powdr for inhalation montelukast 10 mg tablet 10 mg PO DAILY 01/23/25 01/23/25 History rosuvastatin 10 mg tablet 10 mg PO DAILY 01/23/25 01/23/25 History Past Med/Surg History Problem List (Updated 01/23/25 @ 23:36 by Becky Tomlinson PA-C) Nausea (Acute) Cough (Acute) Fever (Acute) Vomiting (Acute) Shortness of breath (Acute) Influenza A (Acute) Hypoxic (Acute) Influenza A Benign essential hypertension Lumbar stenosis with neurogenic claudication Degenerative scoliosis Pseudarthrosis after fusion or arthrodesis Lumbar spinal stenosis due to adjacent segment disease after fusion procedure History of lumbar fusion Opioid dependence Exertional angina Atherogenic dyslipidemia Ascending aorta dilatation Mild mitral regurgitation 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 INH. CONTROLLED WITH SCHEDULED INHALER> BEEN YRS SINCE LAST ATTACK Post laminectomy syndrome (Chronic) Chronic, continuous use of opioids (Chronic) Sleep apnea (Chronic) CPAP AT HS Chronic pain syndrome (Chronic) Rotator cuff tear (Chronic) Idiopathic polyneuropathy (Chronic) Lumbar spinal stenosis (Chronic) Medical History Asthma exacerbation Hypoxia Hypoxia Diaphoresis Stroke-like symptoms Prostatitis Dysuria Acute exacerbation of chronic low back pain Arthritis Nocturia Umbilical hernia Encounter for pre-operative examination Carpal tunnel syndrome Shingles rash RECOVERING FROM SHINGLES AT PRESENT> SCABS ARE HEALING OVER AT THIS TIME Osteoarthritis Periumbilical abdominal pain Intractable abdominal pain Etiology of the pain at this time is really unrelated to any acute abdomen patient is fairly comfortable and after discussing with the ER physician felt that the pain was gone and he really did not receive any analgesics this may been self-limiting process from my point of view patient can be discharged and return on a as needed basis Hepatomegaly Chest pain radiating to arm Chest pain radiating to jaw Surgical History History of mandibular surgery open right jaw repair History of carpal tunnel release History of colonoscopy Hx of cataract surgery LEFT H/O arthroscopic knee surgery RIGHT H/O rotator cuff surgery R/L History of lumbar surgery RODS History of hernia repair Family History Brother Lung cancer Myocardial infarction Father Heart disease Myocardial infarction Congestive heart failure Sister Myocardial infarction Mother Cancer COPD (chronic obstructive pulmonary disease) Denies family history of Ovarian cancer Prostate cancer Breast cancer Colorectal cancer Social History Smoking Status: Never smoker Tobacco Type: Cigarettes Age Started Using Tobacco: 12; Age Quit Using Tobacco: 20; packs per day: 0.5; Second Hand Exposure: No; Do You Dip or Chew Tobacco: No; Hx Alcohol Use: No Hx Substance Use: No Preferred Language: Slovenian Communication Ability: Effective Visual Impairment: Limited Hearing Ability: Hard of Hearing Certified Professional Controller Required: No Beliefs That Will Affect Care: None marital status: Current Living Situation: Spouse current occupational status: retired How many Children do You have: 2 Feels Safe at Home: Yes Childhood Exposure to Second-Hand Smoke: Yes caffeine: Yes (coffee in the morning ) Dental Care, Regularly: Yes Physical Activity Frequency: 1-2 Times per Week Seatbelt Use: always Sunscreen Use: No (doesn't go in the sun ) Assistive Devices: Cane, CPAP and Walker Review of Systems Review of Systems: All systems reviewed & are unremarkable except as noted in Subjective Physical Exam Physical Exam: General: No acute distress Skin: Warm and dry, without rashes or lesions Head: Normocephalic, atraumatic Eyes: PERRL, conjunctivae clear, sclera non-icteric ENT: External ear and ear canal without swelling; nose atraumatic; good dentition, tongue normal appearance, pharynx normal Neck: Supple, no LAD Cardio: RRR, no M/G/R, S1 and S2 normal Resp: No respiratory distress, diffuse inspiratory + expiratory wheezing throughout, otherwise without rales or rhonchi Abdomen: Soft, symmetric, nontender; No masses or hepatosplenomegaly; Bowel sounds normoactive MSK: No deformities, full ROM throughout; pulses palpable and equal; no edema. Neuro: Awake, alert; CN grossly intact Psych: Appropriate mood and affect; good judgement and insight. present in room at time of visit. Results & Data Results & Data Vital Signs (Past 12 Hours) Vital Signs Temp Pulse Pulse Resp BP BP Pulse Ox 01/23/25 19:20 93 01/23/25 19:20 89 L 01/23/25 19:00 36.7 C 83 28 H 116/81 92 01/23/25 17:55 82 17 96/75 L 94 01/23/25 17:37 88 01/23/25 16:21 36.7 C 97 H 19 117/71 93 O2 Del Method O2 Flow Rate 01/23/25 19:20 Nasal Cannula 2 01/23/25 19:20 Room Air 01/23/25 19:00 Room Air 01/23/25 17:55 Room Air 01/23/25 17:37 01/23/25 16:21 Room Air Laboratory Results 01/23/25 01/23/25 Unknown 16:50 WBC 5.87 RBC 4.40 L Hgb 14.0 Hct 40.6 L MCV 92.3 MCH 31.8 MCHC 34.5 RDW Std Deviation 43.7 RDW Coeff of Angelita 12.9 Plt Count 131 MPV 10.0 Immature Gran % (Auto) 0.5 Neut % (Auto) 81.0 Lymph % (Auto) 8.2 [place] % (Auto) 9.9 Eos % (Auto) 0.2 Baso % (Auto) 0.2 Neut # (Auto) 4.76 Lymph # (Auto) 0.48 L [place] # (Auto) 0.58 Eos # (Auto) 0.01 Baso # (Auto) 0.01 Immature Gran # (Auto) 0.03 Sodium 134 L Potassium 3.9 Chloride 104 Carbon Dioxide 22 Anion Gap 8 BUN 14 Creatinine 0.86 Est Cr Clr Drug Dosing 82.7 eGFR 89.74 BUN/Creatinine Ratio 16.3 Glucose 123 H Calcium 9.3 Total Bilirubin 1.2 H AST 18 ALT 11 Alkaline Phosphatase 56 Total Protein 7.5 Albumin 4.6 Globulin 2.9 Albumin/Globulin Ratio 1.6 Nasal Influ A H1 2008 PCR DETECTED A Adenovirus (PCR) Not Detected B. pertussis DNA (PCR) Not Detected B.parapertussis DNA PCR Not Detected C. pneumoniae DNA (PCR) Not Detected Coronavirus OC43 (PCR) Not Detected Coronavirus HKU1 (PCR) Not Detected Coronavirus 229E (PCR) Not Detected SARS-CoV-2 (PCR) Not Detected Coronavirus NL63 (PCR) Not Detected Human Metapneumovir PCR Not Detected Influenza Type B (PCR) Not Detected M. pneumoniae (PCR) Not Detected Parainfluenza 1 (PCR) Not Detected Parainfluenza 2 (PCR) Not Detected Parainfluenza 3 (PCR) Not Detected Parainfluenza 4 (PCR) Not Detected RSV (PCR) Not Detected Entero/Rhino (PCR) Not Detected Diagnostic Findings Chest X-Ray 01/23/25 16:23 EXAM: Radiograph of the Chest 1 View INDICATION: Illness TECHNIQUE: Frontal view of the chest. COMPARISON: 12/26/2024 FINDINGS: Lungs and pleural spaces: Stable interstitial scarring. No consolidation or pulmonary edema. No pleural effusion or pneumothorax. Heart: Stable prominent cardiac shadow. Mediastinum: Normal contour. Bones/joints: Metallic anchor projects left proximal humerus. Bilateral rotator cuff pathology and acromioclavicular arthritic change. No acute osseous abnormality. Soft tissues: No abnormality noted. No radiopaque foreign body noted. Vasculature: Stable ectatic aorta. Upper abdomen: No abnormality noted. IMPRESSION: No acute cardiopulmonary disease. ACT 112: N/A Electronically signed by Cara Guthrie 01-23-2025 5:40 PM Medications Administered NSS 1L Promethazine 12.5mg IV Oseltamivir 75mg po Albuterol 3mL neb Acetaminophen 1g IV ECG Additional Comments: Sinus rhythm with first-degree AV block, RBBB 93 bpm, MO 262, QRS 152, QT/QTc 456/566, PRT 3818 Code Status & VTE Plan Code Status Conditional - All cardiac interventions - NO machines, per patient - no mechanical ventilation Supervising Physician Co-Signing Physician Notes Patient seen and examined, chart reviewed, case discussed with ZAIRA Uribe and I agree with the assessment and plan as above. In brief, patient is a pleasant 74yo male presenting with SOB x 2 days. Patient also with vomiting. Hypoxic in the ER at 89% on room air. Found to have Influenza A On exam he is afebrile, HD stable, NAD Skin- no rash HEENT- MMM, Neck supple Heart - +S1/S2, regular, no m/r/g Lungs - diffuse end-expiratory wheezing, no rhonchi or rales Abd - soft, NT/ND Labs and images reviewed CXR with no acute findings Assessment/Plan - acute hypoxic respiratory failure secondary to asthma exacerb ation in setting of influenza A infection -Tamiflu DuoNeb scheduled and PRN -Supplemental O2 as needed -Remainder as above PG Care Time/CCT Total # of Minutes Spent Total Time Spent with Patient: Total time spent is greater than 50% in coordination of care (as documented) at patient's floor/unit and/or counseling patient: Coding Level of Care Code 15367 INT INP/OBS CARE 3/75MIN Diagnoses Influenza A J10.1
[2025-01-23 20:16] LABS: Appearance Urine Clear (Clear); Bilirubin Urine Negative (Negative); Blood Urine Negative (Negative); Color Urine Yellow; Glucose Urine UA Negative (Negative); Ketones Urine 1+ (Negative); Leukocyte Esterase Urine Negative (Negative); Nitrite Urine Negative (Negative); Protein Urine Negative (Negative); Specific Gravity Urine 1.012 (1.000-1.030); Urobilinogen Urine Negative (Negative)
[2025-01-23] MEDS ORDERED: ONDANSETRON INJ 2 MG/ML 2 ML VIAL IV PRN (23:10)
[2025-01-23] MEDS ORDERED: ALBUTEROL HFA 8 GM INHALER INH PRN (23:10)
[2025-01-23] MEDS ORDERED: POLYETHYLENE (MIRALAX) 17 GM PACK PO PRN (23:10)
[2025-01-24] MEDS: HYDROcodone/ACETAMINOPHEN 10/325 TAB PO PRN (00:06)
[2025-01-24] MEDS: ALBUT/IPRATROP 3MG/0.5MG NEB 3 ML VIAL NEB SCH (00:07)
[2025-01-24] MEDS: CETIRIZINE HCL 10 MG TABLET PO SCH (00:07)
[2025-01-24] MEDS: PREGABALIN 150 MG CAP PO SCH (00:07)
[2025-01-24] MEDS: ENOXAPARIN INJ 40 MG/0.4 ML SYR SQ SCH (00:07)
[2025-01-24 04:34] LABS: Mean Corpuscular Hemoglobin 32.2 pg (25.0-34.0); Mean Corpuscular Hgb Conc 34.2 g/dL (32.0-36.0); Mean Corpuscular Volume 94.1 fL (80.0-100.0); Platelet Count 114 K/uL (130-400); RDW Coefficient of Variation 13.1 % (11.5-14.5); Red Blood Count 4.04 M/uL (4.70-6.10); White Blood Count 3.73 K/ul (4.8-10.8)
[2025-01-24 04:41] LABS: BUN Creatinine Ratio 15.7 (10-20); Calcium 8.6 mg/dl (8.6-10.3); Creatinine Clr Calc Pharmacy 85.7 ml/min; Potassium 3.9 mmol/L (3.5-5.1)
[2025-01-24] MEDS: DOXEPIN HCL 75 MG CAPSULE PO SCH ×2 (08:45→20:30)
[2025-01-24] MEDS: OSELTAMIVIR PHOSPHATE 75 MG CAP PO SCH (08:45)
[2025-01-24] MEDS: ROSUVASTATIN CALCIUM 10 MG TAB PO SCH (08:46)
[2025-01-24] MEDS: TAMSULOSIN HCL 0.4 MG CAP PO SCH (08:46)
[2025-01-24] MEDS: MONTELUKAST SODIUM 10 MG TABLET PO SCH (08:47)
[2025-01-24] MEDS: FLUTICASONE/VILANTEROL 100/25MCG 14 PUFFS/INHALER INH SCH (08:47)
[2025-01-24] MEDS: ACETAMINOPHEN 325 MG TAB PO PRN (08:51)
[2025-01-24] MEDS ORDERED: Nursing to Pharmacy Communication SCH (11:30)
[2025-01-24] MEDS ORDERED: methylPREDNISolone 125 MG/2 ML VIAL IV STA (18:58)
[2025-01-24] MEDS ORDERED: guaiFENesin/DEXTROM SYRUP 200MG/20MG 10ML UDC PO PRN (18:59)
--- NOTE | 2025-01-24 19:01 | Hospitalist Progress Note ---
Date of Service January 24, 2025 Assessment & Plan (1) Influenza A: Plan This pt is a 74-year-old male with a h/o HTN, asthma, mild nonobstructive CAD, TAA, depression, vitamin D deficiency, and obesity presenting for SOB x 2 days, nausea, productive cough. Nasal swab positive for flu A, BioFire negative otherwise; CXR without acute findings; EKG sinus rhythm with a first-degree AV block and RBBB at 93 bpm. He was hypoxic and placed on supplemental O2. #Influenza A/Acute asthma exacerbation/Acute respiratory failure with hypoxemia- p/w N/V, SOB, cough x 2 days. CXR negative for PNA but with wheezing and had hypoxia at 89% on RA on arrival, now on 3LNC, no O2 at baseline. Received annual influenza vaccine in 2023. -start IV Solumedrol 125mg x 1 now then 40mg IV bid -continue Duonebs qid sheduled -add guaifenesin DM 10 mL q6h prn for cough and rib pain, hydrocodone for rib pain -continue Droplet precautions -continue Tamiflu 75mg BID through AM of 01/28 -Tylenol for fever/pain -Continue IC + Flutter Valve -continue supplemental O2-wean to keep POx>90% -continue home maintenance ICS/LABA, montelukast, Zyrtec #Thrombocytopenia/Leukopenia/Anemia-mild anemia normocytic, plts and WBC count recently low likely from influenza A infection. -check Fe studies, B12, folate, TSH in AM #Chronic low back pain-no acute issues -continue home Meloxicam, pregabalin, hydrocodone/acetaminophen, doxepin #HLD/Mild nonobstructive CAD- no acute issues, no events on tele thus far, ECG without ischemic changes -continue Rosuvastatin -should be on ASA but defer to PCP and Sc[place]bler #BPH-no retention issues -continue tamsulosin DVT proph-Lovenox SQ Dispo-continued stay on med tele Admission and Anticipated Discharge Date Admission Date: January 23, 2025 Subjective Pt feeling SOB, only slightly improved from previous, coughing hurts under his ribs. No N/V/D, no abd pain. Physical Exam Constitutional: WD/WN, vitals as above Respiratory: normal respiratory effort and + cough Auscultation: + wheezes (right middle lung field); no crackles and no rhonchi Cardiovascular: RRR, no murmur, no edema Gastrointestinal (Abdomen): normal bowel sounds, soft, nontender, no hepatosplenomegaly Psychiatric: A+Ox3, euthymic affect Results & Data Results & Data Vital Signs (Past 12 Hours) Vital Signs Temp Pulse Pulse Pulse Resp BP Pulse Ox 01/24/25 16:29 36.6 C 74 18 109/69 93 01/24/25 15:15 78 20 90 01/24/25 13:14 75 01/24/25 11:21 82 01/24/25 11:20 01/24/25 11:14 36.6 C 78 22 124/81 91 01/24/25 09:00 01/24/25 07:17 82 01/24/25 07:16 81 20 94 O2 Del Method O2 Flow Rate 01/24/25 16:29 Nasal Cannula 2 01/24/25 15:15 Nasal Cannula 2 01/24/25 13:14 01/24/25 11:21 01/24/25 11:20 Nasal Cannula 2 01/24/25 11:14 Nasal Cannula 2 01/24/25 09:00 Nasal Cannula 94 01/24/25 07:17 01/24/25 07:16 Nasal Cannula 3 Laboratory Results CBC, BMP reviewed PG Care Time/CCT Total # of Minutes Spent Total Time Spent with Patient: Total time spent is greater than 50% in coordination of care (as documented) at patient's floor/unit and/or counseling patient: Coding Level of Care Code 81540 SUB INP/OBS CARE 3/50MIN Diagnoses Influenza A J10.1
[2025-01-24] MEDS: methylPREDNISolone 125 MG in SYRINGE 0 ML IV STA (20:24)
[2025-01-24] MEDS: guaiFENesin/DEXTROM SYRUP 200MG/20MG 10ML UDC PO STA (20:28)
[2025-01-24] MEDS: MELATONIN 3 MG TAB PO PRN (20:35)
--- OUTSIDE RECORDS SUMMARY | 2025-01-24 21:28 | External Medical Summary | Summary of Care ---
Author Name Unknown Organization [facility] Address [address] [place] [address] Phone [phone] Care Team Providers Care Recycling Specialist Name Role Phone Hector Hernandez MD Primary Care Provider Reason for Visit * Reason Comments Follow Up Low back pain Encounter Details Date Type Department Care Team (Latest Contact Info) Description 01/03/2025 12:50 PM EST [facility] [address] [place] [address] Cole Miller MD [address] [place] [address] Lumbar spine pain*; Degeneration of intervertebral disc of lumbar region with discogenic back pain and lower extremity pain; Failed back syndrome Allergies Active Allergy Reactions Criticality Noted Date Comments Sulfa Antibiotics Itching 01/18/2012 documented as of this encounter (statuses as of 01/03/2025) Medications ADVAIR DISKUS 250-50 MCG/[facility] one puff twice daily Active SINGULAIR 10 MG PO TABS one tab Q evening 30 6 01/16/2009 Active Cetirizine HCl 10 MG Oral Tablet Take 1 Tablet by mouth in the morning and 1 Tablet before bedtime. 180 Tab 3 04/27/2017 Active levalbuterol (XOPENEX HFA) 45 MCG/ACT inhaler inhale 2 puffs every 4 hours if needed 0 05/29/2017 Active gabapentin (NEURONTIN) 300 MG Capsule Take 1 Capsule by mouth in the morning and 1 Capsule at noon and 1 Capsule before bedtime. 0 01/27/2018 Active Hydrocodone-Estuardo taminophen 10-325 MG per tablet Take 1 Tablet by mouth 3 times a day as needed. 0 10/12/2018 Active Alfuzosin HCl ER 10 MG TB24 take 1 tablet by mouth once daily AFTER DINNER 03/19/2020 Active Doxycycline Hyclate 100 MG Oral Capsule Take 1 Capsule by mouth in the morning and 1 Capsule before bedtime. 05/13/2021 Active Vitamin D3 50 MCG (2000 UT) Oral Tablet Take 1 Tablet by mouth in the morning. 05/06/2021 Active Doxepin HCl 75 MG Oral Capsule (Sinequan) Take 1 Capsule by mouth in the morning. 90 Capsule 4 08/09/2024 Active Diclofenac Sodium 50 MG Oral Tablet Delayed Release (Voltaren) Take 1 Tablet by mouth in the morning and 1 Tablet before bedtime. WITH FOOD. 60 Tablet 2 12/22/2024 Active DULoxetine HCl 30 MG Oral Capsule Delayed Release Particles (Cymbalta) Take 1 Capsule by mouth at bedtime. 30 Capsule 2 12/22/2024 Active tiZANidine HCl 4 MG Oral Tablet (Zanaflex) Take 1 Tablet by mouth 3 times a day. 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 09/03/2010 Overview (08/23/2017): ICD-10 update of inactive term documented as of this encounter (statuses as of 01/03/2025) Resolved Problems Problem Noted Date Diagnosed Date Resolved Date Dermatophytosis of groin 01/17/2008 Asthma with severity to be determined 08/13/2003 01/18/2012 Overview (03/02/2016): ICD-10 update of inactive term Idiopathic urticaria 02/12/2003 012 Overview (09/29/2005): Began 1996 Pruritic disorder 02/12/2003 01/18/2012 documented as of this encounter (statuses as of 01/03/2025) Immunizations Name Administration Dates Next Due Pneumococcal Conjugate Vacc, 13 Valent (Prevnar) 01/06/2018 Pneumococcal Polysaccharide PPV23 (Pneumovax) 11/22/2010,11/22/2006,11/22/2004 Season Influenza, Quad, PF, Adjuvanted, 65+ Yrs, IM (FLUAD) 08/11/2020 Seasonal Influenza Vac., MDV , IM, 0.5 mL (Fluzone) 08/07/2014,08/06/2012 08/07/2015 Seasonal Influenza, PF, 6 M & above, IM , (FluLaval or Fluzone) 08/19/2019,08/27/2018 Seasonal Influenza, Quadriva lent Hd (Fluzone Hd) 08/03/2023,08/31/2022,09/18/2021 Seasonal Influenza, Quadriva lent, No Preserve, IM 09/05/2016,08/22/2015 Seasonal Influenza, Trivalen t, (IIV3), PF, (Fluzone) 07/23/2010 TDAP (age 10 and older)(Boostrix) 01/10/2019 Varicella Zoster Vaccine (Adult) 07/16/2016 documented as of this encounter Social History Tobacco Use Types Packs/Day Years Used Date Smoking Tobacco: Former Cigarettes 0.5 5 0 11/22/1962 - 11/22/1967 Smokeless Tobacco: Never Alcohol Use Standard Drinks/Week Comments Yes 0 (1 standard drink = 0.6 oz pur e alcohol) "once in a blue chin" Sex and Gender Information Value Date Recorded Sex Assigned at Not on file Legal Sex Male 5:04 AM EST Gender Identity Not on file Sexual Orientation Not on file 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 [facility] Cole Miller MD 01/03/2025 2:00 PM documented in this encounter Miscellaneous Notes * Addendum Note - Cole Miller MD - 01/03/2025 2:04 PM ESTAddended by: COLE MILLER on: 01/03/2025 02:04 PM Modules accepted: Orders documented in this encounter Plan of Treatment Upcoming Encounters Date Type Department Care Team (Late st Contact Info) Description 08/10/2025 3:00 PM EDT PulmDiagnostic Pulmonary Function Lab, [facility] [address] [facility] [place] [address] [place], [address] [place] [address] Health Maintenance Due Date Last Done Comments Depression Screening 1962 Zoster Vaccines (2 of 3) 09/10/2016 07/16/2016 Colonoscopy 03/29/2019 03/29/2014, 03/29/2014 COVID-19 Vaccine (3 - season) 2024 09/10/2021, 08/18/2021 DTap/Tdap Vaccines (2 - Td or Tdap) 01/10/2029 01/10/2019 RETIRED - COLONOSCOPY-EVERY 5 YRS AGES 18-100 Discontinued 03/29/2014, 03/29/2014 Pneumococcal Vaccine: 50+ Years Completed 06/23/2023, 01/06/2018, 11/22/2010, Additional history exists Influenza Vaccine (FLU shot) Completed 08/29/2024, 08/03/2023, 08/31/2022, Additional history exists HPV (Gardasil) Vaccine Aged Out No lo nger eligible based on patient's age to complete this topic Hepatitis B Vaccine Aged Out No longe r eligible based on patient's age to complete this topic MENINGOCOCCAL (MENACTRA/MENVEO) Aged Out No longer eligible based on patient's age to complete this topic documented as of this encounter Medical Devices Not on filedocumented as of this encounter Visit Diagnoses Diagnosis Lumbar spine pain- Primary Lumbago Degeneration of intervertebral disc of lumbar region with discogenic back pain and lower extremity pain Failed back syndrome Other unspecified back disorder documented in this encounter Care Teams Recycling Specialist Relationship Specialty Start Date End Date Hector Hernandez MD [address] [place] [address] PCP - General 02/28/02 documented as of this encounter
--- OUTSIDE RECORDS SUMMARY | 2025-01-24 21:28 | External Medical Summary | Summary of Care ---
Author Name Unknown Organization [facility] Address [address] [place] [address] Phone [phone] Care Team Providers Care Wrapper Stripper Name Role Phone Hector Hernandez MD Primary Care Provider [phone] Reason for Visit * Reason Comments NEW PATIENT Lower back check Encounter Details Date Type Department Care Team (Latest Contact Info) Description 12/22/2024 2:10 PM EST [facility] [address] [place] [address] Cole Miller MD [address] [place] [address] Lumbar spine pain*; Degeneration of intervertebral disc of lumbar region with discogenic back pain and lower extremity pain; Failed back syndrome Allergies Active Allergy Reactions Criticality Noted Date Comments Sulfa Antibiotics Itching 01/18/2012 documented as of this encounter (statuses as of 01/06/2025) Medications ADVAIR DISKUS 250-[facility] one puff twice daily Active [...] at bedtime. 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 09/03/2010 Overview (08/23/2017): ICD-10 update of inactive term documented as of this encounter (statuses as of 01/06/2025) Resolved Problems Problem Noted Date Diagnosed Date Resolved Date Dermatophytosis of groin 01/17/2008 Asthma with severity to be determined 08/13/2003 01/18/2012 Overview (03/02/2016): ICD-10 update of inactive term Idiopathic urticaria 02/12/2003 012 Overview (09/29/2005): Began 1997 Pruritic disorder 02/12/2003 01/18/2012 documented as of this encounter (statuses as of 01/06/2025) Immunizations Name Administration Dates Next Due Pneumococcal [...] 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 [facility] Cole Miller MD 01/06/2025 3:31 PM CLINIC NOTES Orthopaedics Spine Surgery, [address] [address] NAME: Jonathan Smallwood : 1950 ORTHOPAEDIC SURGERY OUTPATIENT NOTE 12/22/2024 CHIEF COMPLAINT: Low back and leg pain HISTORY: The patient is a 74-year-old retired gentleman who is here for evaluation of his low back.He has had a total of 8 low back surgeries. He had [address] Christopher from Neurosurgery here at [facility] and 6 other surgeries. His most recent surgeries were in the 2017 to [address] Live at the [facility]. CURRENT MEDICATIONS: Per [facility] ALLERGIES: Sulfa antibiotics REVIEW OF SYSTEMS: A 10 system review of systems was done. His problem list is displayed in his [facility] snapshot FAMILY AND SOCIAL HISTORY: The patient is a retired. He is not a smoker. He does not drink any alcoholic beverages. PHYSICAL EXAM: The patient is a well-developed well-nourished man no apparent distress. He is 5 ft 6 in tall and weighs 232 lb. His BMI is 37. Examination of the lumbar spine reveals well-healed surgical scars. He has decreased range of motion secondary to low back pain and stiffness. Lower extremity examination reveals nondermatomal numbness. His static strength was equal and symmetric. LABORATORY AND XRAY DATA: The patient brought a variety of reports from CT scans and MRIs from the [facility]. The actual images are not available. There is a degenerative scoliosis. The reports describe postsurgical changes from L3-S1 with the removal of the hardware and residualfragments of screws at S1. There is moderate stenosis at L2-3 and L1-2. IMPRESSION: 1. Lumbago 2. Lumbar degenerative disc disease 3. Failed back syndrome 4. Bilateral lumbar radiculopathy RECOMMENDATIONS: Based on his current condition I feel patient is symptomatic with residuals after a total of 8 lumbar surgeries. He has had decompression procedures fusion procedures and removal of the hardware due to failure of it. At this time I am not able to review the actual images. We will wait for those to be pushed to us by [facility]. I told the patient in his that I would showed the images to my partners to see if anyone has any suggestions. We had a long conversation about the fact that after that many surgeries the likelihood of another surgery yielding really good results is very low. We discussed using a rolling walker with the hand brakes and a fold down seat to try to improve his stability and allow him to get around a little bitbetter. We started him on Cataflam 50 mg 1 p.o. twice daily after food and duloxetine 30 mg 1 p.o. at HS. I gave him 2 refills. If these medicines are helpful he can get them from his PCP. The patient expressed interest in coming back in a couple of weeks after we reviewed the x-rays anddiscussed it with the groove. I invited him to make an appointment in a couple of weeks. Cole Miller MD 01/06/2025 3:31 PM * Cole Miller MD - 12/22/2024 2:51 PM EST Please see dictated note for documentation on this encounter. [facility] Cole Miller MD 12/22/2024 2:51 PM documented in this encounter Plan of Treatment Upcoming Encounters Date Type Department Care Team (Late st Contact Info) Description 08/10/2025 3:00 PM EDT PulmDiagnostic Pulmonary Function Lab, [facility] [address] [address] [address], [address] [address] Health Maintenance Due Date Last Done Comments [...] on patient's age to complete this topic Meningitis B Vaccine (Bexsero/Trumemba) Aged Out No longer eligible based on patient's age to complete this topic documented as of this encounter Medical Devices Not on filedocumented as of this encounter Visit Diagnoses Diagnosis Lumbar spine pain- Primary Lumbago Degeneration of intervertebral disc of lumbar region with discogenic back pain and lower extremity pain Failed back syndrome Other unspecified back disorder documented in this encounter Care Teams Wrapper Stripper Relationship Specialty Start Date End Date Hector Hrenandez MD [address] [address] PCP - General 02/28/02 documented as of this encounter
--- OUTSIDE RECORDS SUMMARY | 2025-01-24 21:28 | External Medical Summary | Summary of Care ---
Author Name Unknown Organization [facility] Address [address] [place] [address] Phone [phone] Care Team Providers Care Medical Laboratory Technologist Name Role Phone Hcetor Hernandez MD Primary Care Provider Reason for Visit * Reason Comments Follow Up Low back pain Encounter Details Date Type Department Care Team (Latest Contact Info) Description 01/03/2025 12:50 PM EST [facility] [address] [place] [address] Cole Miller MD [address] [place] [address] Lumbar spine pain*; Degeneration of intervertebral disc of lumbar region with discogenic back pain and lower extremity pain; Failed back syndrome Allergies Active Allergy Reactions Criticality Noted Date Comments Sulfa Antibiotics Itching 01/18/2012 documented as of this encounter (statuses as of 01/07/2025) Medications ADVAIR DISKUS 250-50 [facility] one puff twice daily Active [...] as of this encounter (statuses as of 01/07/2025) Active Problems Problem Noted Date Diagnosed Date Chronic back pain 02/05/2016 Idiopathic urticaria 01/18/2012 Overview (01/18/2012): Since 1996 Asthma, mild persistent 01/18/2012 Pruritic disorder 01/18/2012 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 09/03/2010 Overview (08/23/2017): ICD-10 update of inactive term documented as of this encounter (statuses as of 01/07/2025) Resolved Problems Problem Noted Date Diagnosed Date Resolved Date Dermatophytosis of groin 01/17/2008 Asthma with severity to be determined 08/13/2003 01/18/2012 Overview (03/02/2016): ICD-10 update of inactive term Idiopathic urticaria 02/12/2003 012 Overview (09/29/2005): Began 1996 Pruritic disorder 02/12/2003 01/18/2012 documented as of this encounter (statuses as of 01/07/2025) Immunizations Name Administration Dates Next Due Pneumococcal [...] Industry Job Start Date Job End Date [employer] Not on file Not on file Not on file documented as of this encounter Progress Notes * Cole Miller MD - 01/07/2025 1:35 PM EST Please see dictated note for documentation on this encounter. [facility] Cole Miller MD 01/07/2025 1:35 PM CLINIC NOTES Orthopaedics Spine Surgery, [address] [address] NAME: Jonathan Smallwood : 1950 ORTHOPAEDIC SURGERY OUTPATIENT NOTE 01/03/2025 CHIEF COMPLAINT: Back and leg pain HISTORY: Patient returns for followup today. We had seen him previously on December 22, 2024. We hadseen him for back and leg pain problems. He has had a total of 8 surgeries on his low back and had come seeking another opinion regarding further surgery. He has had decompressions fusions with hardware removal of his hardware. His imaging from [facility] was not available when hewas here last. I have subsequently reviewed it and showed these images and discussed his case with my partners. PHYSICAL EXAM: The patient is a well-developed well-nourished man no apparent distress. He is 5 ft 6 in tall and weighs 232 lb. His BMI is 37. His detailed physical examination is unchanged from his previous evaluation. LABORATORY AND XRAY DATA: CT scans and MRI from [facility] were again reviewed and shown to the patient in his . My interpretation is that he has postsurgical changes with abovelevel degenerative changes and stenosis. IMPRESSION: 1. Lumbar degenerative disc disease 2. Lumbar stenosis 3. Neurogenic claudication 4. Failed back syndrome RECOMMENDATIONS: Based on his current condition I feel patient has had an extensive number of surgeries 8 in total with now additional above level degenerative changes. No either myself no my partners feel like additional surgery is going to significantly change his symptoms although his standing and walking may improve a little bit. The patient is in the meantime taken my suggestion and gotten aRollator rolling walker and this actually seems to be helping him to stand up straighter and walk better. The patient himself feels like he has had a lot of surgeries on his back and was not really interested in pursuing another 1. At this time I gave him a prescription for tizanidine 4 mg 1 p.o. TID with his pain meds to see if that potentially its and improves the performance. I gave her 1 refill butif this medication is helpful he can get it from his PCP. At this time we do not recommend further surgical treatment. Cole Miller MD 01/07/2025 1:35 PM * Cole Miller MD - 01/03/2025 2:00 PM EST Please see dictated note for documentation on this encounter. [facility] Cole Miller MD 01/03/2025 2:00 PM documented in this encounter Miscellaneous Notes * Addendum Note - Cole Miller MD - 01/03/2025 2:04 PM ESTAddended by: COLE MILLER on: 01/03/2025 02:04 PM Modules accepted: Orders documented in this encounter Plan of Treatment Upcoming Encounters Date Type Department Care Team (Late st Contact Info) Description 08/10/2025 3:00 PM EDT PulmDiagnostic Pulmonary Function Lab, [facility] [address] [facility] [address] [address] [address], [address] [place] [address] Health Maintenance Due Date Last Done Comments Depression Screening 1960 Zoster Vaccines (2 of 3) 09/10/2016 07/16/2016 Colonoscopy 03/29/2019 03/29/2014, 03/29/2014 COVID-19 Vaccine (3 - 2023- season) 2024 09/10/2021, 08/18/2021 DTap/Tdap Vaccines (2 [...] disorder documented in this encounter Care Teams Medical Laboratory Technologist Relationship Specialty Start Date End Date Hector Hernandez MD [address] [place] [address] PCP - General 02/28/02 documented as of this encounter
--- OUTSIDE RECORDS SUMMARY | 2025-01-24 21:28 | External Medical Summary | Summary of Care ---
Author Name Unknown Organization [facility] Address [address] [place] [address] Phone [phone] Care Team Providers Care Vp Product Management Name Role Phone Hector Hernandez MD Primary Care Provider Reason for Visit * Reason Comments Follow Up Low back pain Encounter Details Date Type Department Care Team (Latest Contact Info) Description 01/03/2025 12:50 PM EST [facility] [address] [place] [address] Cole Miller MD [address] [place] [address] Lumbar spine pain*; Degeneration of intervertebral disc of lumbar region with discogenic back pain and lower extremity pain; Failed back syndrome Allergies Active Allergy Reactions Criticality Noted Date Comments Sulfa Antibiotics Itching 01/18/2012 documented as of this encounter (statuses as of 01/03/2025) Medications ADVAIR DISKUS 250-50 [facility] one puff twice daily Active [...] 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 [facility] Cole Miller MD 01/03/2025 2:00 PM documented in this encounter Miscellaneous Notes * Addendum Note - Cole Miller MD - 01/03/2025 2:04 PM ESTAddended by: COLE MILLER on: 01/03/2025 02:04 PM Modules accepted: Orders documented in this encounter Plan of Treatment Upcoming Encounters Date Type Department Care Team (Late st Contact Info) Description 08/10/2025 3:00 PM EDT PulmDiagnostic Pulmonary Function Lab, [facility] [address] [facility] [address] [place] [address] [address], [address] [facility] [address] [address] Health Maintenance Due Date Last Done Comments [...] disorder documented in this encounter Care Teams Vp Product Management Relationship Specialty Start Date End Date Hector Hernandez MD [address] [place] [address] PCP - General 02/28/02 documented as of this encounter
--- NOTE | 2025-01-24 21:31 | Electrocardiogram Report ---
Test Reason : Blood Pressure : */* mmHG Vent. Rate : 93 BPM Atrial Rate : 93 BPM P-R Int : 262 ms QRS Dur : 152 ms QT Int : 456 ms P-R-T Axes : 38 12 18 degrees QTcB Int : 566 ms Sinus rhythm with 1st degree A-V block Right bundle branch block Abnormal ECG When compared with ECG of 26-Dec-2024 18:31, Premature ventricular complexes are no longer Present Confirmed by Musa Givens ([id number]) on 01/24/2025 9:30:59 PM Referred By: Confirmed By: Musa Givens
[2025-01-25 07:06] LABS: Hematocrit (blood only) 43.1 % (42.0-52.0); Hemoglobin 14.8 g/dl (14.0-18.0); Immature Granulocytes # (auto) 0.02 K/uL (0.01-0.20); Immature Granulocytes % (auto) 0.7 %; Lymphocytes % (auto) 14.2 %; Mean Corpuscular Hemoglobin 31.7 pg (25.0-34.0); Mean Corpuscular Hgb Conc 34.3 g/dL (32.0-36.0); Mean Corpuscular Volume 92.3 fL (80.0-100.0); Mean Platelet Volume 9.8 fL (9.4-12.4); Monocytes # (auto) 0.13 K/uL (0.11-0.59); Monocytes % (auto) 4.6 %; Neutrophils # (auto) 2.26 K/uL (1.40-6.50); Neutrophils % (auto) 80.5 %; Platelet Count 147 K/uL (130-400); RDW Coefficient of Variation 12.9 % (11.5-14.5); RDW Standard Deviation 43.8 fL (36.4-46.3); Red Blood Count 4.67 M/uL (4.70-6.10); White Blood Count 2.81 K/ul (4.8-10.8)
[2025-01-25 07:47] LABS: BUN Creatinine Ratio 21.6 (10-20); Calcium 9.3 mg/dl (8.6-10.3); Creatinine Clr Calc Pharmacy 96.5 ml/min; Magnesium 2.1 mg/dl (1.7-2.4); Potassium 4.5 mmol/L (3.5-5.1)
[2025-01-25 07:49] LABS: Folate (Folic Acid),Ser orPlas 16.93 ng/ml (>5.38)
[2025-01-25 08:02] LABS: Thyroid Stimulating Hormone 0.224 uIu/ml (0.300-4.500)
[2025-01-25] MEDS: methylPREDNISolone 40 MG in SYRINGE 0 ML IV SCH (08:06)
[2025-01-25 08:07] LABS: Ferritin 471.2 ng/ml (8-388)
[2025-01-25 08:36] LABS: T4 Free Thyroxine 0.75 ng/dl (0.61-1.60)
[2025-01-25] MEDS ORDERED: methylPREDNISolone 125 MG/2 ML VIAL IV SCH (09:00)
[2025-01-25] MEDS: CYANOCOBALAMIN 1000 MCG/ML VIAL IM ONE (10:21)
--- NOTE | 2025-01-25 18:37 | Hospitalist Progress Note ---
Date of Service January 25, 2025 Assessment & Plan (1) Influenza A: (2) Hypoxic: (3) Asthma: (4) B12 deficiency anemia: Plan This pt is a 74-year-old male with a h/o HTN, asthma, mild nonobstructive CAD, TAA, depression, vitamin D deficiency, and obesity presenting for SOB x 2 days, nausea, productive cough. Nasal swab positive for flu A, BioFire negative otherwise; CXR without acute findings; EKG sinus rhythm with a first-degree AV block and RBBB at 93 bpm. He was hypoxic and placed on supplemental O2. #Influenza A/Acute asthma exacerbation/Acute respiratory failure with hypoxemia- p/w N/V, SOB, cough x 2 days. CXR negative for PNA but with wheezing and had hypoxia at 89% on RA on arrival, placed on 3LNC, no O2 at baseline. Received annual influenza vaccine in 2023. Was started on IV steroids on 01/24 and now improving, weaning off O2 at rest -Continue IV Solumedrol 40mg IV bid and convert to po prednisone on discharge -continue DuoNeb qid scheduled -continue guaifenesin DM 10 mL q6h prn for cough, hydrocodone for rib pain -continue Droplet precautions -continue Tamiflu 75mg BID through AM of 01/28-finish out course at home -Tylenol for fever/pain -Continue IC + Flutter Valve -continue supplemental O2-wean to keep POx>90%-may need 2 step walk test prior to discharge -continue home maintenance ICS/LABA, montelukast, Zyrtec #Pancytopenia/B12 deficiency anemia-mild anemia normocytic, plts and WBC count recently low likely from influenza A infection and now improving. B12 checked and low normal despite that he takes po B12 at home. Folate and Fe studies normal. TSH mildly low but normal FT4 -give B12 1000 mcg IM x 1, then continue B12 1000 mcg po daily after that -follow BMP #Chronic low back pain-no acute issues -continue home Meloxicam, pregabalin, hydrocodone/acetaminophen, doxepin #HLD/Mild nonobstructive CAD- no acute issues, no events on tele thus far, ECG without ischemic changes -continue Rosuvastatin -should be on ASA but defer to PCP and Nursing Care Attendant -can downgrade off tele #BPH-no retention issues -continue tamsulosin DVT proph-Lovenox SQ Dispo-continued stay but downgrade to med/surg unit, likely dc to home 01/26, check 2 step walk test in AM-ordered. Pt needs to be discharged by noon because he wants to go home and take his to a doctor's appt because she is acutely ill Admission and Anticipated Discharge Date Admission Date: January 24, 2025 Subjective Pt feeling better today since starting the steroids last evening. Is weaning off O2, cough improving and lower rib pain not as bad. He ambulated a bit in the halls without GANDARA. No diarrhea. Tele with SR, 1st degree AVB, IVCD, PVCs, rates 70-80s Physical Exam Constitutional: WD/WN, vitals as above Respiratory: normal respiratory effort, lungs clear to auscultation Cardiovascular: RRR, no murmur, no edema Gastrointestinal (Abdomen): normal bowel sounds, soft, nontender, no hepatosplenomegaly Psychiatric: A+Ox3, euthymic affect Results & Data Results & Data Vital Signs (Past 12 Hours) Vital Signs Temp Pulse Pulse Resp BP Pulse Ox O2 Del Method 01/25/25 15:36 36.6 C 72 20 145/81 H 91 Room Air 01/25/25 15:12 97 H 01/25/25 11:47 36.6 C 96 H 20 125/77 94 Room Air 01/25/25 10:43 79 14 90 Nasal Cannula 01/25/25 08:07 36.7 C 98 H 20 124/81 90 Room Air 01/25/25 07:46 88 16 93 Room Air 01/25/25 07:25 Room Air 01/25/25 07:18 80 O2 Flow Rate 01/25/25 15:36 01/25/25 15:12 01/25/25 11:47 01/25/25 10:43 3 01/25/25 08:07 01/25/25 07:46 01/25/25 07:25 01/25/25 07:18 Laboratory Results CBC, BMP, magnesium, iron studies, B12, folate reviewed PG Care Time/CCT Total # of Minutes Spent Total Time Spent with Patient: Total time spent is greater than 50% in coordination of care (as documented) at patient's floor/unit and/or counseling patient: Coding Level of Care Code 78750 SUB INP/OBS CARE 3/50MIN Diagnoses Influenza A J10.1 Hypoxic R09.02 Asthma J45.909 B12 deficiency anemia D51.9
[2025-01-25] MEDS: ALBUT/IPRATROP 3MG/0.5MG NEB 3 ML VIAL NEB SCH (19:53)
[2025-01-26 07:45] VITALS: BP 154/85; TEMP 97.8; O2SAT 91
[2025-01-26 07:59] VITALS: PULSE 78
[2025-01-26] MEDS: CYANOCOBALAMIN (B-12) 500 MCG TABLET PO SCH (08:32)
--- NOTE | 2025-01-26 10:44 | Discharge Summary ---
Discharge Summary Date of Service January 26, 2025 Principal Dx & Hospital Course #1 = Principal Diagnosis (1) Influenza A: (2) Hypoxic: (3) Asthma: (4) B12 deficiency anemia: Plan This pt is a 74-year-old male with a h/o HTN, asthma, mild nonobstructive CAD, TAA, depression, vitamin D deficiency, and obesity presenting for SOB x 2 days, nausea, productive cough. Nasal swab positive for flu A, BioFire negative otherwise; CXR without acute findings; EKG sinus rhythm with a first-degree AV block and RBBB at 93 bpm. He was hypoxic and placed on supplemental O2. #Influenza A/Acute asthma exacerbation/Acute respiratory failure with hypoxemia- p/w N/V, SOB, cough x 2 days. CXR negative for PNA but with wheezing and had hypoxia at 89% on RA on arrival, placed on 3LNC, no O2 at baseline. Received annual influenza vaccine in 2023. Was started on IV steroids on 01/24 and now improving, weaning off O2 at rest -Continue IV Solumedrol 40mg IV bid and convert to po prednisone on discharge -continue DuoNeb qid scheduled -continue guaifenesin DM 10 mL q6h prn for cough, hydrocodone for rib pain -continue Droplet precautions -continue Tamiflu 75mg BID through AM of 01/28-finish out course at home -Tylenol for fever/pain -Continue IC + Flutter Valve -continue supplemental O2-wean to keep POx>90%-may need 2 step walk test prior to discharge -continue home maintenance ICS/LABA, montelukast, Zyrtec #Pancytopenia/B12 deficiency anemia-mild anemia normocytic, plts and WBC count recently low likely from influenza A infection and now improving. B12 checked and low normal despite that he takes po B12 at home. Folate and Fe studies normal. TSH mildly low but normal FT4 -give B12 1000 mcg IM x 1, then continue B12 1000 mcg po daily after that -follow BMP #Chronic low back pain-no acute issues -continue home Meloxicam, pregabalin, hydrocodone/acetaminophen, doxepin #HLD/Mild nonobstructive CAD- no acute issues, no events on tele thus far, ECG without ischemic changes -continue Rosuvastatin -should be on ASA but defer to PCP and [employer] -can downgrade off tele #BPH-no retention issues -continue tamsulosin DVT proph-Lovenox SQ Dispo-continued stay but downgrade to med/surg unit, likely dc to home 01/26, check 2 step walk test in AM-ordered. Pt needs to be discharged by noon because he wants to go home and take his to a doctor's appt because she is acutely ill Admission HPI Per Admitting Provider 74-year-old male PMHx HTN, CAD, depression, vitamin D deficiency, and obesity presenting for SOB x 2 days. States he believes he has the flu because he has been coughing, vomiting, and felt feverish. Main concern is that he is having SOB with a productive cough which is producing yellow/green sputum. Had 3 episodes of vomiting the day [employer] and then 3 episodes of vomiting the day of arrival. Some abdominal pain, but no D/C. States that his chest does feel like it is congested, but he is not having URI symptoms and no reported fever. His chest feels sore because he has been coughing extensively. No known sick contacts. Patient did receive his influenza vaccine this year. Denying chest pain, palpitations, numbness/tingling, syncope, weakness, lightheadedness, LUTS, or headaches. ED evaluation reveals no leukocytosis, CMP with sodium 134, glucose 123, bilirubin 1.2; nasal swab positive for flu A, BioFire negative otherwise; CXR without acute findings; EKG sinus rhythm with a first-degree AV block and RBBB at 93 bpm. Patient was provided with 1L NSS, promethazine, Tamiflu, albuterol, and acetaminophen in ED. Please see Dr. Christopher's attestation for adjustments/additions to treatment plan. Discharge Exam GENERAL APPEARANCE NAD, activity normal for age, well developed/ well nourished, no cyanosis, pallor, or diaphoresis. EYES lids/conjunctiva normal. EARS/NOSE/THROAT Mucous membranes moist, nares normal, lips/teeth normal uvula midline without oral pharyngeal erythema, exudate or swelling TMs normal bilaterally. No lymphangitis/lymphedema. HEAD/NECK normocephalic atraumatic, no facial trauma, neck is supple. RESPIRATORY respiratory effort normal, speaks in full sentences, no tripod position, no accessory muscle use. Lungs clear to auscultation without rhonchi, wheezes, rales CARDIAC Regular rate and rhythm, no edema. ABDOMINAL Soft, ND/NT. No evidence of fluid wave. No pulsatile masses on exam, rebound tenderness, Newby sign or pain over Mcburney's point. MUSCLES/EXTREMITIES No abnormal range of motion, no swelling. SKIN Warm, pink and dry. No rashes, dermatoses, petechiae or lesions. NEUROLOGICAL Speech is clear and appropriate. Normal level of consciousness. Gait and coordination are normal. 5/5 strength in all extremities. PSYCH Normal mood and affect. Judgement/competence is appropriate Discharge Plan Discharge Items Patient Disposition: Home - Self-Care Reason For Visit: INFLUENZA, HYPOXIA Discharge Diagnosis: influenza, hypoxia Condition on Discharge: Good Activity: Resume your previous activity Non-emergency contact: Primary Care Provider Call non-emergency contact if: you have any medication questions Follow-up/Referrals: Carleen Richards DO [Primary Care Provider] - 02/02/25 3:00 pm Diet: Regular Addtl Attending Provider Instructions: Follow up in 2 weeks Pending Studies at Discharge: No Stand-Alone Forms: My [facility], Smoking Cessation Medications and DC Order Prescriptions: New oseltamivir [Tamiflu] 75 mg Capsule 75 mg PO BID Qty: 6 0RF prednisone 10 mg tablet 10 mg PO DIRECTED Qty: 20 0RF Rx Instructions: see taper instructions take 4 tabs for 2 days then, 3 tabs for 2 days then, 2 tabs for 2 days then, 1 tab for 2 days. Continued cholecalciferol (vitamin D3) 50 mcg (2,000 unit) capsule 2,000 unit PO DAILY Qty: 30 5RF albuterol sulfate 90 mcg/actuation HFA aerosol inhaler 2 puff inhalation Q6H PRN (Reason: shortness of breath or wheezing) Qty: 6.7 2RF pregabalin [Lyrica] 150 mg capsule 150 mg PO BID Qty: 60 2RF hydrocodone-acetaminophen 10-325 mg tablet 1 tab PO QID PRN (Reason: pain) Qty: 90 0RF alfuzosin 10 mg tablet extended release 24 hr 10 mg PO DAILY Qty: 90 3RF Rx Instructions: After the same meal each day fluticasone propion-salmeterol [Wixela Inhub] 250-50 mcg/dose blister with device 1 inh INH BID Qty: 180 3RF cetirizine 10 mg capsule 10 mg PO BID fluticasone propion-salmeterol 250-50 mcg/dose blister with device 1 inh INHALATION BID doxepin 75 mg capsule 75 mg PO QAM montelukast 10 mg tablet 10 mg PO DAILY rosuvastatin 10 mg tablet 10 mg PO DAILY Discharge Orders: Discharge Order (Routine); Ordered 01/26/25 Ordered By: Kai Braswell Admission Data Admit Date/Time: 01/24/25 19:01 Attending Provider: Kai Braswell Admit Provider: Latia Christopher Primary Care Provider: Carleen Richards Other Providers: Latia Christopher Hospital Stay Data Consultations 01/23/25 20:13 ED Decision to Admit Stat Pending Results Patient Have Any Pending Studies at Discharge: No Discharge Instructions Given to Patient (Per Discharging Provider) Follow up in 2 weeks Total Time Total Time Spent Total Time Spent (In Minutes): 50 Coding Level of Care Code 65245 INP/OBS DISCH >30 MIN Diagnoses Influenza A J10.1 Hypoxic R09.02 Asthma J45.909 B12 deficiency anemia D51.9
[2025-01-26 10:51] VITALS: RESP 18
== END 2025-01-26 13:30 | disposition home or self-care (01) | DRG 193 ==
LOC: SUATTDRO → EDINP 16:17 → ED 16:17 → SUATTDRO 20:16 → EDINP 01-24 10:55 → 2W 01-24 11:23 → SUATTDRO 01-24 19:01